=== PATIENT | male | born 1975 | race Caucasian/White ===

== ENCOUNTER 2025-05-14 21:23 | Emergency (ER) | payer MEDICAID, SELFPAY ==
[2025-05-14 21:24] VITALS: BP 151/91; PULSE 66; RESP 20; TEMP 35.9; O2SAT 100; BMI 22.4
[2025-05-14 21:29] VITALS: BP 141/106; PULSE 75; RESP 16; TEMP 37; O2SAT 100
--- NOTE | 2025-05-14 22:25 | ED.VIS.DYS ---
HPI History of Present Illness Chief Complaint: Abd Pain Informant: patient Narrative Narrative: 49-year-old male states he woke up last night with severe sudden right lower quadrant abdominal pain that ended up going away but then tonight it came back and again is severe and persistent. Nauseated but no vomiting. No radiation or migration of the pain. He states he feels like he needs to have a bowel movement and to urinate at the same time but he cannot do either. When he did urinate earlier he denies any hematuria, dysuria, or other issues. States he has never had pain like this before. Denies any other systemic symptoms. According to EMS report he did methamphetamine just prior to arrival. [facility] Medical History (Updated 05/15/25 @ 03:[address] Willie Hnasen MD) Drug abuse Home Medications ?Medication ?Instructions ?Recorded ?Last Taken ?Type oxycodone-acetaminophen 5 mg-325 1 tab PO Q6H PRN PRN Pain 3 days 05/15/25 Unknown Rx mg tablet #12 TABLETS tamsulosin 0.4 mg capsule 0.4 mg PO DAILY #7 caps 05/15/25 Unknown Rx Allergy/AdvReac Type Severity Reaction Status Date / Time No Known Allergies Allergy Verified 05/14/25 21:24 Social History Smoking Status: Current some day smoker tobacco type: cigarettes ROS ROS ED Constitutional Constitutional ED: Denies chills or fever(s) Eyes Eyes: Denies change in vision or diplopia ENT ENT ED: Reports nasal congestion and rhinorrhea; Denies sore throat Cardiovascular Cardiovascular: Denies chest pain, palpitations, pedal edema or radiating jaw, neck or arm pain Respiratory/Chest Respiratory/Chest: Denies cough, dyspnea or sputum Gastrointestinal Gastrointestinal: Reports abdominal pain and nausea; Denies diarrhea or vomiting Genitourinary Genitourinary ED: Denies dysuria or hematuria Musculoskeletal Musculoskeletal: Denies back pain or neck pain Integumentary Denies abscess or rash Neurologic Neurologic: Denies headache(s), paresthesias or weakness Psychiatric Psychiatric: Denies suicidal thoughts EXAM Physical Exam Const Vital Signs: 05/14/25 21:24 05/14/25 21:29 05/14/25 22:29 Temperature 96.7 F L 98.6 F 98.3 F Temperature Source Axillary Oral Oral Pulse Rate 66 75 77 Respiratory Rate 20 H 16 16 Blood Pressure 151/91 H 141/106 H 165/88 H Blood Pressure Mean 111 117 113 Pulse Ox 100 100 100 Oxygen Delivery Method Room Air Room Air Room Air 05/14/25 22:30 05/14/25 23:00 05/15/25 01:42 Temperature 98 F Temperature Source Oral Pulse Rate 77 89 Respiratory Rate 16 17 Blood Pressure 164/70 H 131/86 H Blood Pressure Mean 101 101 Pulse Ox 100 96 97 Oxygen Delivery Method Room Air Room Air Room Air 05/15/25 03:08 Temperature Temperature Source Pulse Rate 63 Respiratory Rate 16 Blood Pressure 125/99 H Blood Pressure Mean 107 Pulse Ox Oxygen Delivery Method Positive well nourished and well developed Constitutional Narrative: Mild painful distress. No resp distress. General Appearance ED: well developed and NAD HEENT Reports moist mucous membranes normocephalic and atraumatic Eyes PERRL and EOMs intact bilaterally Neck full ROM, supple and no JVD Resp normal respiratory effort and clear to auscultation bilaterally Cardio regular rate, regular rhythm and no murmurs GI non-distended GI Narrative: tender throughout RLQ. otherwise, NT. Auscultation: normoactive bowel sounds Palpation: soft; Negative for guarding or rebound tenderness present Back/Spine no CVA tenderness General Back: other FROM Extremity normal to inspection General Extremety ED: Negative for edema, pulses abnormal or tenderness General Extremity: Negative for edema or pulses abnormal Neuro oriented x3, CN's II-XII intact bilaterally and no sensory deficits noted Sensorium / Orientation: awake and alert Motor Exam: strength 5/5 throughout Psych Mood & Affect: anxious Skin no rashes or lesions noted and no wounds MDM MDM MDM Narrative Medical decision making narrative: History and exam more consistent with acute ureteral colic and obstructive uropathy and acute appendicitis or ruptured AAA. However in considering all of these I think CT warranted. I reviewed the CT images as well as result which I agree with, it is consistent with ureterolithiasis and resultant ureteral colic, mild hydroureteronephrosis. This explains the patient's pain. His pain is well-controlled here in the emergency department, but he was here for a while until he was able to produce enough urine for us to send a specimen, so he received a couple doses of pain medication. He is ambulatory and stable for discharge home, expectant management as this is very small, and given that it is a UVJ stone I am putting him on tamsulosin to see if it helps him pass it sooner. Urine shows leukocyte, some white blood cells but not as many as red, but I am sending it for culture because there are bacteria although this was a specimen he gave in a urinal that was then transferred to a sterile cup, my suspicion for infection is low here so I am not treating him with antibiotics; stable for discharge. Lab Data Attestation: I reviewed the patient's lab results. Labs: Laboratory Results - last 24 hr 05/14/25 05/15/25 21:41 03:24 WBC 9.2 RBC 5.47 Hgb 16.0 Hct 47.7 MCV 87.2 MCH 29.3 MCHC 33.5 RDW Std Deviation 39.8 RDW Coeff of Vanessa 12.5 Plt Count 280 MPV 11.3 Immature Gran % (Auto) 0.200 Neut % (Auto) 43.0 L Lymph % (Auto) 42.0 H [place] % (Auto) 10.0 Eos % (Auto) 4.0 Baso % (Auto) 0.8 Absolute Neuts (auto) 4.0 Absolute Lymphs (auto) 3.86 Nucleated RBC % 0 Sodium 139 Potassium 3.7 Chloride 103 Carbon Dioxide 22.1 Anion Gap 13 BUN 27 H Creatinine 1.31 H Estim Creat Clear Calc 70.24 Est GFR (MDRD) Non-Af 67 BUN/Creatinine Ratio 20.4 H Glucose 112 H Calcium 9.4 NT pro BNP II < 36 Urine Color Yellow Urine Clarity Clear Urine pH 6.5 Ur Specific [place] 1.015 Urine Protein 30 H Urine Glucose (UA) Normal Urine Ketones 15 H Urine Occult Blood 250 H Urine Nitrite Negative Urine Bilirubin 1 H Urine Urobilinogen 4 H Ur Leukocyte Esterase 100 H Urine RBC 50-100 SEEN Urine WBC 25-50 SEEN Ur Squamous Epith Cells 0-5 SEEN Calcium Oxalate Crystal 1+ Urine Bacteria 2+ Urine Mucus 4+ Radiography Diagnostic Testing: Clinical Impression(s) from Imaging Studies Abdomen/Pelvis CT 05/14/25 22:34 IMPRESSION: Ureteral calculus at the right ureterovesical junction, with mild hydroureteronephrosis. Reading Location: [id number] Discharge Plan Triage Chief Complaint: Abd Pain ED Provider: Willie Hansen Dx/Rx/DC Orders Clinical Impression: Ureteral colic, Ureterolithiasis Instructions: ED Kidney Stone with Pain Prescriptions: New oxycodone-acetaminophen 5-325 mg tablet 1 tab PO Q6H PRN PRN (Reason: Pain) 3 Days Qty: 12 0RF tamsulosin 0.4 mg capsule 0.4 mg PO DAILY Qty: 7 0RF Primary Care Provider: Care Physician,No Primary Referrals: Solomon Burton MD [Med Staff - Active Staff] - 1 Week if not improving Print Language: [place] Disposition Disposition: Home, Self Care
[2025-05-14 22:29] VITALS: BP 165/88; PULSE 77; RESP 16; TEMP 36.8; O2SAT 100
[2025-05-14 22:30] VITALS: O2SAT 100
--- NOTE | 2025-05-14 22:34 | CT_ITS ---
PROCEDURE: ABDOMEN/PELVIS WITHOUT CONT 05/14/2025 REASON FOR EXAM: POSS KIDNEY STONE- RLQ PAIN TECHNIQUE: ABDOMEN/PELVIS WITHOUT CONT Noncontrast technique limits evaluation of the abdominal and pelvic viscera. Coronal and Sagittal reconstruction series were provided. One or more dose reduction techniques were used (e.g., Automated exposure control, adjustment of the mA and/or kV according to patient size, use of iterative reconstruction technique). ORAL CONTRAST TYPE: None. COMPARISON: None. FINDINGS: Lung bases: Bibasilar atelectasis. The heart is normal in size. Liver: The unopacified liver is normal in size. No biliary ductal dilation. Gallbladder: No radiopaque stones within the gallbladder. Spleen: Normal in size. Pancreas: The unopacified pancreas is unremarkable. Adrenals: No adrenal mass. Kidneys: Tiny 1-2 mm stone at the right ureterovesical junction. Mild right hydroureteronephrosis. Unremarkable left kidney. Bladder: Mildly distended and unremarkable. Reproductive Organs: Unremarkable. Bowel: The bowel loops are nondilated. No ascites or pneumoperitoneum. Normal appendix. Mild distal colonic diverticulosis. Lymph nodes: Visualization is limited without the use of IV contrast. No lymphadenopathy. Vasculature: Mild diffuse atherosclerotic calcifications are noted. Bones: Unremarkable. CT/Abdomen/Pelvis without Cont IMPRESSION: Ureteral calculus at the right ureterovesical junction, with mild hydroureteron ephrosis. Reading Location: [id number]
[2025-05-14 22:35] LABS: Absolute Lymphocyte Count 3.86 X10^3/uL (0.83-4.51); Basophil# 0.07 X10^3/uL; Basophil% 0.8 % (0-1); Eosinophil# 0.37 X10^3/uL; Hematocrit 47.7 % (40-54); Lymphocyte # 3.86 X10^3/ul (0.83-4.51); Mean Corp Hgb Conc 33.5 g/dL (32-36); Mean Corpuscular Hgb 29.3 pg (27.0-32.0); Mean Corpuscular Volume 87.2 fL (80-94); Mean Platelet Vol. 11.3 fl (6.2-12.0); Monocyte# 0.92 X10^3/uL; NRBC Flagged by Analyzer 0 % (0-5); Neutrophil # 3.95 X10^3/uL (2.7-7.7); Platelet Count 280 K/mm3 (150-450); RBC Distribution Width CV 12.5 % (11.6-14.6); RBC Distribution Width SD 39.8 fl (35.1-43.9); Red Blood Count 5.47 M/mm3 (4.6-6.2); White Blood Count 9.2 K/mm3 (4.4-11.0)
[2025-05-14] MEDS: Ketorolac 30 MG/ML Syringe IV (22:44)
[2025-05-14] MEDS: Ondansetron 4 MG/2 ML Vial IV (22:44)
[2025-05-14 23:00] VITALS: BP 164/70; PULSE 77; RESP 16; TEMP 36.6; O2SAT 96
[2025-05-14 23:09] LABS: Anion Gap 13 (5-15); BUN 27 mg/dL (4-19); BUN/Creat Ratio 20.4 RATIO (10-20); Calcium,Total 9.4 mg/dL (7.6-11.0); Carbon Dioxide 22.1 mmol/L (21.0-32.0); Chloride 103 mmol/L (98-108); Creatinine, Serum 1.31 mg/dL (0.70-1.20); EST Glomerular Filtration Rate 67 (>60); Estimated Creatinine Clearance 70.24 ml/min (50-250); Glucose 112 mg/dL (70-99); Potassium 3.7 mmol/L (3.3-5.1); Sodium Level 139 mmol/L (133-145)
[2025-05-14 23:24] LABS: Pro- Brain NATRIURETIC PEPTIDE < 36 pg/mL (<=450)
[2025-05-15] MEDS: Morphine 4 MG/ML Syringe IV (01:40)
[2025-05-15 01:42] VITALS: BP 131/86; PULSE 89; RESP 17; O2SAT 97
[2025-05-15 03:08] VITALS: BP 125/99; PULSE 63; RESP 16
[2025-05-15] MEDS: oxyCODONE 5 MG Tablet PO (03:42)
[2025-05-15 04:04] LABS: Color, Urine Yellow (Yellow); Glucose, Dipstick Normal (Normal); Ketone-Dipstick 15 mg/dl (Negative); Leukocyte Esterase-Dipstick 100 /ul (Negative); Nitrite-Dipstick Negative (Negative); Occult Blood-Urine 250 /ul (Negative); Protein-Dipstick 30 mg/dl (Negative); Specific Gravity, Urine 1.015 (1.002-1.030); Urine Clarity Clear (Clear); Urine Urobilinogen 4 mg/dl (Normal); Urine pH 6.5 (5.0 - 8.0)
[2025-05-15 04:16] LABS: Bacteria 2+ /hpf (None Seen); Calcium Oxalate Crystals Ur 1+ /hpf (<or=2+); Mucous, Urine 4+ /hpf (<or=2+); Red Blood Cells-Urine 50-100 SEEN /hpf (0-5); Squamous Epithelial Cells - UA 0-5 SEEN /hpf (0-5); Urine Bilirubin Dipstick 1 mg/dL (Negative); White Blood Cells 25-50 SEEN /hpf (0-5)
[2025-05-15 04:23] VITALS: BP 142/88; PULSE 62; RESP 18; TEMP 36.6; O2SAT 97
== END 2025-05-15 04:26 | disposition home or self-care (01) ==
PROVIDERS: Emergency Provider Emergency Medicine; Visit Provider Emergency Medicine
DX: N20.1 Calculus of ureter (principal); F17.210 Nicotine dependence, cigarettes, uncomplicated
CPT/HCPCS: 74176; 80048; 81001; 83880; 85025; 87086; 96374; 96375; 99285; A4216; J2405

== ENCOUNTER 2025-05-15 19:16 | Emergency (ER) | payer MEDICAID, SELFPAY ==
[2025-05-15 19:16] VITALS: BP 146/85; PULSE 85; RESP 16; TEMP 36.6; O2SAT 98; BMI 22.7
--- NOTE | 2025-05-15 19:55 | CM.ED ---
Date of referral: 05/15/25 Reason for referral: No PCP Referred by: Social Work Identification Patient provided consent to social and political studies professor visit however was not able to hardly talk due to verbalizing high levels of pain. Patient did confirm that he does not have a PCP so social and political studies professor provided patient with a written handout for the [facility] which patient accepted. Cassy Mcfarland, COLOR CARD MAKER, COIN MACHINE COLLECTOR SUPERVISOR
--- OUTSIDE RECORDS SUMMARY | 2025-05-15 20:04 | XMS RPT_ITS | CCD ---
Author Organization [facility] Inform ion Partnership [facility] Care Team Providers Care Single Resource Boss Name Role Phone DANIEL KING Unavailable Unavailable Unavailable Primary Care Provider Unavailabl e Unavailable Primary Care Provider Unavailabl e Maximus FOSS, Latanya Primary Care Provider Unavazelalem lable LABIRAN, ARAMIDE Primary Care Unavailable LABIRAN, ARAMIDE Primary Care Unavailable TUCKER JUNG Consulting Unavailable CORWIN RAY Admitting Unavailable CORWIN RAY Attending Unavailable ARMANDO MCKINLEY Consulting Unavailable PROVIDER, UNKNOWN Admitting Unavailable PROVIDER, UNKNOWN Attending Unavailable PROVIDER, UNKNOWN Admitting Unavailable PROVIDER, UNKNOWN Attending Unavailable PROVIDER, UNKNOWN Admitting Unavailable PROVIDER, UNKNOWN Attending Unavailable Tyrone FOSS, Dr. Tapia Emergency Provider Care Physician, No Primary Primary Care Provider Unavailable Medications Current Medications Medication Drug Class(es) Dates Sig (Normalized) Sig (Original) acetaminophen 325 mg oral tablet (3 sources) Start: 11-25-2024 End: 12-25-2024 650 mg, Oral, 2 TIMES DAILY PRN, 14 doses, Starting on Sat11/25/24 at 1844, Until Sat12/25/24 at 2359, Mild Pain (pain score 1,2,3) Start: 09-19-2023 End: 09-24-2023 acetaminophen (TYLENOL) tabl et Start: 01-08-2023 End: 02-05-2023 acetaminophen (TYLENOL) tabl et acetaminophen 325 mg / oxyCODONE hydrochloride 5 mg oral tablet (1 source) Opioid Agonist Start: 05-15-2025 take 1 tablet by mouth every six hours as needed for pain Oxycodone-Acetaminophen 5-325 mg tablet Active 1 {tbl} PO EVERY 6 HOURS NEEDED as needed for Pain 12 3 May 15, 2025 Start: 05-15-2025 take 1 tablet by jose th every six hours as needed for pain Oxycodone-Acetaminophen 5-325 mg tablet Active 1 {tbl} PO EVERY 6 HOURS NEEDED as needed for Pain 12 May 15, 2025 atomoxetine 40 mg oral capsule (1 source) Norepinephrine Reuptake Inhibitor Start: 11-05-2024 End: 02-03-2025 40 mg, Oral, DAILY, 90 doses, First dose on Em 11/05/24 at 1700, Last dose on Sat02/02/25 at 0900 benztropine mesylate 1 mg oral tablet (7 sources) Anticholinergic, Antihistamine Start: 01-09-2023 End: 02-06-2023 benztropine (COGENTIN) tablet take 1 tablet by mouth twice deirdre ly benztropine (COGENTIN) 0.5 MG tablet Take 0.5 mg by mouth 2 times daily. Active citalopram 20 mg oral tablet (7 sources) Serotonin Reuptake Inhibitor Start: 01-09-2023 End: 02-06-2023 citalopram (CeleXA) TABS doxepin hydrochloride 50 mg oral capsule (9 sources) Tricyclic Antidepressant Start: 01-17-2023 End: 04-17-2023 doxepin (SINEQUAN) capsule Start: 12-26-2022 End: 01-17-2023 doxepin (SINEQUAN) capsule take 1 capsule by mo [facility] at bedtime doxepin (SINEQUAN) 10 MG capsule Take 10 mg by mouth at bedtime. Active ibuprofen 200 mg oral tablet (4 sources) Nonsteroidal Anti-inflammatory Drug Start: 12-20-2023 End: 01-19-2024 ibuprofen (MOTRIN) tablet Start: 04-29-2023 ibuprofen (ADV IL;MOTRIN) tablet 800 mg Start: 10-08-2022 take 1 tablet by jose four times daily as needed for pain ibuprofen (ADVIL;MOTRIN) 600 MG tablet Indications: Thumb injury, right, initial encounter Take 1 tablet by mouth 4 times daily as needed for Pain 40 tablet 1 10/08/2022 Active naltrexone hydrochloride 50 mg oral tablet (1 source) Opioid Antagonist Start: 11-05-2024 End: 01-28-2025 50 mg, Oral, DAILY, 84 doses, First dose on Em 11/05/24 at 1630, Last dose on Sat01/27/25 at 0900 risperiDONE 0.5 mg oral tablet (1 source) Atypical Antipsychotic Start: 11-05-2024 End: 02-03-2025 take 0.5 mg by mouth once daily in the evening 0.5 mg, Oral, EVERY EVENING, 90 doses, First dose on Sat11/05/24 at 1700, Last dose on Sat02/02/25 at 1700 tamsulosin hydrochloride 0.4 mg oral capsule (1 source) alpha-Adrenergic Deshaun Start: 05-15-2025 take 1 capsule by mouth once daily Tamsulosin 0.4 mg capsule Active 0.4 mg PO DAILY May 15, 2025 12:00am Completed/Discontinued Medications Medication Drug Class(es) Dates Sig (Normalized) Sig (Original) chlorpheniramine maleate 4 mg oral tablet (1 source) Histamine-1 Receptor Antagonist Start: 3 End: 3 chlorpheniramine (CHLOR-TRIMETRON) 4 MG tablet cloNIDine hydrochloride 0.2 mg oral tablet (1 source) Central alpha-2 Adrenergic Agonist Start: 3 End: 3 cloNIDine (CATAPRES) tablet dextroamphetamine sulfate 5 mg oral tablet (1 source) Central Nervous System Stimulant Start: 2 End: 3 take 2 tablets by mouth once daily dextroamphetamine (ZENZEDI) 5 MG tablet Indications: Attention deficit hyperactivity disorder (ADHD), unspecified ADHD type Take 2 tablets by mouth daily for 30 days. 60 tablet 0 10/08/2022 04/29/2023 Discontinued (LIST CLEANUP) dicyclomine hydrochloride 20 mg oral tablet (2 sources) Anticholinergic Start: 3 End: 3 dicyclomine (BENTYL) TABS Start: 12-26-2022 End: 12-30-2022 dicyclomine (BENTYL) TABS ondansetron 4 mg oral tablet (1 source) Serotonin-3 Receptor Antagonist Start: 09-06-2023 End: 09-11-2023 ondansetron (ZOFRAN) tablet Problems Active Problems Problem Classification Problem Date Documented Da te Episodic/Chronic Abdominal pain (1 source) Left lower quadrant pain; Translations: [Left lower quadrant pain] Onset: 04-13-2018 Episodic Administrative/social admission (2 sources) Imprisonment; Translations: [Imprisonment and other incarceration] Episodic Alcohol-related disorders (6 sources) Alcohol abuse; Translations: [Alcohol abuse, uncomplicated] Onset: 01-17-2023 01-17-2023 Chronic Calculus of urinary tract (3 sources) Calculus of kidney; Translations: [Ureteric colic] Onset: 04-13-2018 05-15-2025 Episodic Disorders of teeth and jaw (1 source) Toothache; Translations: [Other specified disorders of teeth and supporting structures] 12-11-2023 Episodic Immunizations and screening for infectious disease (7 sources) Contact with or exposure to other viral diseases; Translations: [Close exposure to COVID-19 virus] Onset: 11-04-2024 Episodic Mood disorders (7 sources) Depressive disorder; Translations: [Depression] Onset: 06-20-2015 06-20-2015 Chronic Mood disorders (2 sources) Mood disorders; Translations: [Depression, unspecified] Onset: 02-19-2024 Other injuries and conditions due to external causes (1 source) Injury of quadriceps tendon; Translations: [Unspecified injury of unspecified quadriceps muscle, fascia and tendon, initial encounter] Episodic Substance-related disorders (20 sources) Opioid dependence; Translations: [Opioid dependence with withdrawal] Onset: 01-17-2023 Chronic Suicide and intentional self-inflicted injury (2 sources) Suicidal ideations; Translations: [Suicidal ideations] Onset: 02-19-2024 Episodic Past or Other Problems Problem Classification Problem Date Documented Da te Episodic/Chronic Other injuries and conditions due to external causes (1 source) Unspecified injury of unspecified quadriceps muscle, fascia and tendon, initial encounter; Translations: [Unspecified injury of unspecified quadriceps muscle, fascia and tendon, initial encounter] Onset: 04-29-2023 Episodic Unclassified (2 sources) Tuberculosis screening status 11-06-2024 Viral infection (5 sources) Disease caused by 2019-nCoV; Translations: [COVID-19] Onset: 01-04-2023 01-04-2023 Episodic Results Test Name Value Interpretation Reference Range Facility Bilirubin Test strip Ql (U)O rdered By: Willie Hansen on 05-15-2025 Bilirubin Ql (U) 1 mg/dL High Negative [facility] Comment on above: COLOR OF URINE MAY A FFECT DIPSTICK RESULTS. Calcium oxalate crystals det ection in urine sediment by light microscopyOrdered By: Willie Hansen on 05-15-2025 Calcium oxalate crystals LM Ql (Urine sed) 1+ /hpf [facility] Ketones Test strip Ql (U)Ord ered By: Willie Hansen on 05-15-2025 Ketones Ql (U) 15 mg/dl High Negative [facility] Microscopic analysis of urin e for red blood cells (RBC)Ordered By: Willie Hansen on 05-15-2025 Microscopic analysis of urine for red blood cells (RBC) 50-100 SEEN /hpf 0-5 [facility] Mucus LM Ql (Urine sed)Order ed By: Willie Hansen on 05-15-2025 Mucus Ql (Urine sed) 4+ /hpf [facility] Nitrite Test strip Ql (U)Ord ered By: Willie Hansen on 05-15-2025 Nitrite Ql (U) Negative Negative [facility] Protein Test strip Ql (U)Ord ered By: Willie Hansen on 05-15-2025 Protein Ql (U) 30 mg/dl High Negative [facility] Squamous epithelial cells de tection in urine sediment by light microscopyOrdered By: Willie Hansen on 05-15-2025 Epithelial cells.squamous LM Ql (Urine sed) 0-5 SEEN /hpf 0-5 [facility] Urine clarityOrdered By: Baldev Hansen on 05-15-2025 Clarity (U) Clear Clear [facility] Urine color determinationOrd ered By: Willie Hansen on 05-15-2025 Color (U) Yellow Yellow [facility] Urine glucose detectionOrder ed By: Willie Hansen on 05-15-2025 Glucose Ql (U) Normal mg/dl Normal [facility] Urine leukocyte esterase det ection by dipstickOrdered By: Willie Hansen on 05-15-2025 Leukocyte esterase Test strip Ql (U) 100 /ul High Negative [facility] Urine pHOrdered By: Willie Hansen on 05-15-2025 pH (U) 6.5 [pH] 5.0 - 8.0 [facility] Urine sediment bacteria coun t by microscopy (number/high power field)Ordered By: Willie Hansen on 05-15-2025 Bacteria LM.HPF (Urine sed) [#/Area] 2 /[HPF] None Seen [facility] Urine specific gravity measu rementOrdered By: Willie Hansen on 05-15-2025 Specific gravity (U) [Rel density] 1.015 1.002-1.030 [facility] Urine urobilinogen measureme ntOrdered By: Willie Hansen on 05-15-2025 Urobilinogen Ql (U) 4 mg/dl High Normal [facility] White blood cell countOrdere d By: Willie Hansen on 05-15-2025 White blood cell count 25-50 SEEN /hpf 0-5 [facility] Absolute lymphocyte countOrd ered By: Willie Hansen on 05-14-2025 Lymphocytes Auto (Unsp spec) [#/Vol] 3.86 10*3/uL 0.83-4.51 [facility] Absolute neutrophil countOrd ered By: Willie Hansen on 05-14-2025 Neutrophils (Bld) [#/Vol] 4.0 10*3/uL 2.0-7.7 [facility] Anion gap in Serum or Plasma Ordered By: Willie Hansen on 05-14-2025 Anion gap [Moles/Vol] 13 mmol/L 5-15 [facility] Automated lymphocyte count a s percentage of total leukocytesOrdered By: Willie Hansen on 05-14-2025 Lymphocytes/100 WBC Auto (Unsp spec) 42.0 % High 19-41 [facility] BUN/creatinine ratioOrdered By: Willie Hansen on 05-14-2025 Urea nitrogen/Creatinine [Mass ratio] 20.4 mg/mg High 10-20 [facility] Basophil percentageOrdered B y: Willie Hansen on 05-14-2025 Basophils/100 WBC (Bld) 0.8 % 0-1 [facility] Carbon dioxide, total [Moles /volume] in Central venous bloodOrdered By: Willie Hansen on 05-14-2025 CO2 [Moles/Vol] 22.1 mmol/L 21.0-32.0 [facility] Chloride assayOrdered By: Franklyn Hansen on 05-14-2025 Chloride [Moles/Vol] 103 mmol/L 98-108 [facility] Eosinophil percentageOrdered By: Willie Hansen on 05-14-2025 Eosinophils/100 WBC (Bld) 4.0 % 0-5 [facility] Erythrocyte distribution wid th ratioOrdered By: Willie Hansen on 05-14-2025 Erythrocyte distribution width (RBC) [Ratio] 12.5 % 11.6-14.6 [facility] Erythrocyte distribution wid th standard deviationOrdered By: Willie Hansen on 05-14-2025 Erythrocyte distribution width (RBC) [Ratio] 39.8 fl 35.1-43.9 [facility] Glomerular filtration rate ( GFR) estimation/1.73 sq m using serum, plasma, or whole bOrdered By: Willie Hansen on 05-14-2025 GFR/1.73 sq M.predicted among non-blacks MDRD (S/P/Bld) [Vol rate/Area] 67 mL/min/{1.73_m2} >60 [facility] Comment on above: mL/min/1.73m2 CKD-EP I Creatinine Equation (2020) Hematocrit Auto (Bld) [Volum e fraction]Ordered By: Willie Hansen on 05-14-2025 Hematocrit (Bld) [Volume fraction] 47.7 % 40-54 [facility] Hemoglobin measurementOrdere d By: Willie Hansen on 05-14-2025 Hemoglobin (Bld) [Mass/Vol] 16.0 g/dL 13.0-16.5 [facility] Immature granulocytes/100 WB C Auto (Bld)Ordered By: Willie Hansen 05-14-2025 Immature granulocytes/100 WBC (Bld) 0.200 % 0.0-0.9 [facility] Comment on above: IG% - Immature Granu locytes (promyelocytes, myelocytes and metamyelocytes) > 1% indicates that a LEFT SHIFT is Present. MCV (mean corpuscular volume ) determinationOrdered By: Willie Hansen on 05-14-2025 MCV (RBC) [Entitic vol] 87.2 fL 80-94 [facility] Mean corpuscular hemoglobin (MCH) determinationOrdered By: Willie Hansen on 05-14-2025 MCH (RBC) [Entitic mass] 29.3 pg 27.0-32.0 [facility] Mean corpuscular hemoglobin concentration (MCHC) determinationOrdered By: Willie Hansen on 05-14-2025 MCHC (RBC) [Mass/Vol] 33.5 g/dL 32-36 [facility] Mean platelet volume determi nationOrdered By: Willie Hansen on 05-14-2025 Platelet mean volume (Bld) [Entitic vol] 11.3 fL 6.2-12.0 [facility] Monocyte percentageOrdered B y: Willie Hansen on 05-14-2025 Monocytes/100 WBC (Bld) 10.0 % 0-10 [facility] Natriuretic peptide.B prohor tessy N-Terminal [Mass/volume] in Serum or PlasmaOrdered By: Willie Hansen on 05-14-2025 Natriuretic peptide.B prohormone N-Terminal [Mass/Vol] < 36 pg/mL <450 [facility] Comment on above: Heart Failure Unlike ly: < 300 pg/mLHeart Failure Likely< 50 Years: > 450 pg/mL50-75 Years: > 900 pg/mL>75 Years: > 1800 pg/mL Neutrophil percentageOrdered By: Willie Hansen on 05-14-2025 Neutrophils/100 WBC (Bld) 43.0 % Low 47-70 [facility] Nucleated red blood cell per centageOrdered By: Willie Hansen on 05-14-2025 Nucleated RBC/100 WBC (Bld) [Ratio] 0 % 0-5 [facility] Platelet countOrdered By: Franklyn Hansen on 05-14-2025 Platelets (Bld) [#/Vol] 280 10*3/uL 150-450 [facility] Potassium measurement (mass/ volume)Ordered By: Willie Hansen on 05-14-2025 Potassium (Unsp spec) [Mass/Vol] 3.7 mmol/L 3.3-5.1 [facility] RBC Auto (Bld) [#/Vol]Ordere d By: Willie Hansen on 05-14-2025 RBC (Bld) [#/Vol] 5.47 10*6/uL 4.6-6.2 [facility] Serum creatinine measurement (mass/volume)Ordered By: Willie Hansen on 05-14-2025 Creatinine [Mass/Vol] 1.31 mg/dL High 0.70-1.20 [facility] Serum glucose measurement (m ass/volume)Ordered By: Willie Hansen on 05-14-2025 Glucose [Mass/Vol] 112 mg/dL High 70-99 [facility] Serum or plasma calcium hetal urement (mass/volume)Ordered By: Willie Hansen on 05-14-2025 Calcium [Mass/Vol] 9.4 mg/dL 7.6-11.0 [facility] Serum or plasma urea nitroge n measurement (mass/volume)Ordered By: Willie Hansen on 05-14-2025 Urea nitrogen [Mass/Vol] 27 mg/dL High 4-19 [facility] Sodium levelOrdered By: Owen Hansen on 05-14-2025 Sodium [Moles/Vol] 139 mmol/L 133-145 [facility] White blood cell (WBC) count Ordered By: Willie Hansen on 05-14-2025 WBC (Bld) [#/Vol] 9.2 10*3/uL 4.4-11.0 [facility] Progress Noteson 11-25-2024 Claims Processor Authentication Interface Message Text Patient to medication cart this evening requesting Tylenol for back pain. Medication pended to provider pool for approval. Normal [facility] Progress Noteson 11-18-2024 Claims Processor Authentication Interface Message Text ExAM Follow-up Appointment Checo Osborne is a 49 year old male. Client was seen today as a follow up for discovery. Updates since last visit on 11/11/24 by this telegraphic typewriter installer. Client reports he's very anxious being here and his daughter is in Foster Care. Client was informed he has lost his bed at [address] [place] [address] and is worried he will not be able to care for his child. Client is asking for a sober living (housing for he and his daughter) in [facility]. Client still believes he will spend 30 days here at the [facility], after his hearing on 11/23/24 with Gabriel Ferrari. Client is still asking for Evin to be at his hearing. No further follow up is needed at this time. Plan/Recommendations: -Speak with Evin. ANGY Wasserman, CLOTH MEASURER MACHINE Normal [facility] HEPATIC FUNCTION PANELon Albumin [Mass/Vol] 4.4 g/dL 3.5 - 5.7 g/dL [facility] ALP [Catalytic activity/Vol] 81 U/L [facility] ALT [Catalytic activity/Vol] 14 U/L [facility] AST [Catalytic activity/Vol] 13 U/L [facility] Bilirubin [Mass/Vol] 0.5 mg/dL 0.3 - 1 .0 mg/dL [facility] Bilirubin.direct [Mass/Vol] 0.09 mg/dL 0.03 - 0.18 mg/dL [facility] Interpretation and review of laboratory results Normal [facility] Protein [Mass/Vol] 6.9 g/dL 6.0 - 8.3 g/dL [facility] Albumin [Mass/Vol] 4.4 g/dL Normal 3.5-5.7 [facility] Comment on above: Performed By: #### H EPATIC #### [facility] [address] [place] [address], ALK 81 IU/L Normal 34-104 [facility] Comment on above: Performed By: #### H EPATIC #### [facility] [address] [place] [address], ALT [Catalytic activity/Vol] 14 U/L Normal 7-52 [facility] Comment on above: Performed By: #### H EPATIC #### [facility] [address] [place] [address], AST [Catalytic activity/Vol] 13 U/L Normal 13-39 [facility] Comment on above: Performed By: #### H EPATIC #### S [facility] [address] [place] [address], Bilirubin [Mass/Vol] 0.5 mg/dL Normal 0.3-1.0 [facility] Comment on above: Performed By: #### H EPATIC #### S [facility] [address] [place] [address], Bilirubin.direct [Mass/Vol] 0.09 mg/dL Normal 0.03-0.18 [facility] Comment on above: Performed By: #### H EPATIC #### S [facility] [address] [place] [address], Protein [Mass/Vol] 6.9 g/dL Normal 6.0-8.3 [facility] Comment on above: Performed By: #### H EPATIC #### [facility] [address] [place], [id number] Progress Noteson 11-11-2024 Claims Processor Authentication Interface Message Text ExAM Follow-up Appointment Checo Osborne is a 49 year old male. Client was seen today to discuss case and treatment plan. Updates since last visit on 11/05/[address] Lew. Client reports he's very anxious being here and his daughter is in Foster Care. Client reports being in [facility] treatment center with is daughter at the time of arrest. Client plans to finish his time here, get his daughter out of foster case and go back to the treatment center. Client says, they are holding his room. Client spoke with his bakery manager 11/10/24. Client believes he will spend 30 days here ([facility]) after his hearing on 11/23/24 with Gabriel Ferrari. No further follow up is needed at this time. ANGY Wasserman, CLOTH MEASURER MACHINE Normal [facility] Addiction Medicineon Claims Processor Authentication Interface Message Text Patient seen by Addiction Provider on CIWA/COWS rounds HPI: Pt reports he's been sober from methamphetamine and fentanyl for almost 1 year. He was in an inpatient program in [place] then transitioned to their sober living- [facility] where he was able to stay with his 5 year old daughter. He says this was his only way to stay sober and keep his daughter with him. Mother of child is actively using and unable to care for her. He is very upset that he was arrested from there due to his PO issuing a warrant. Says he didn't have transportation for check ins but tried to let PO know he was in treatment. Daughter was taken into CPS custody on his arrest and he is very worried for her and sad over this happening. Had been working hard to keep custody of her and maintain sobriety. Was being treated for ADHD and irritbality, mild schizophrenia with strattera and risperidone. Would like to continue these as they are helpful to him. Also pending a MAT evaluation for Methamphetamine use. Discussed limits of medication options but evidence for vivitrol and wellbutrin, thinks that is what he'd get outside of here, willing to start on PO naltrexone to assess tolerability, understands wellbutrin not available here. No SI, HI. UDS: not collected Substance Use History (type, frequency, amount, route of use, onset of use, last use): Opioids: sober for 1 year, hx using fentanyl mixed with meth for several years Alcohol: denies any regular use Benzodiazepines: denies Cocaine: has used, no use in over a year PCP: denies Methamphetamine/ecstasy: meth use- last used 1 year ago, hx daily use Cannabis: hx of use, none in over a year Hx of Delirium Tremens: denies Hx of Seizure: denies Hx of other complicated withdrawal: denies Past Substance Use treatment history: Hx of treatment attempts: yes Types of treatments (inpatient, IOP, OP): IP, IOP, sober living Hx of Medications for JERRICA (and name): subutex tapers before Longest period of sobriety and how attained: almost 1 year, in inpatient tx and sober living Past Psych History: Dx: ADHD, depression Mild schizophrenia Inpatient: x1 at [facility] for depression first time daughter was put in foster care Outpatient: denies Suicide attempts/SIB: denies Meds: Mental Status Exam: Appearance AND attitude: calm, cooperative. Mood: euthymic. Affect:Full Range. Speech: appropriate AND spontaneous, normal rate AND flow. Thought form: organized. Thought content AND perception: no derailment or disorganized thoughts of psychotic nature, denies auditory hallucinations, denies visual hallucinations, denies suicidal thoughts or intention, denies homicidal thoughts or intention. Orientation: Oriented to time, person AND place. Memory AND attention: sustained. Judgment AND insight: fair Diagnoses: Methamphetamine use disorder Plan: - start PO naltrexone, pt to consider Vivitrol for methamphetamine use, discussed that this tx shown beneficial with wellbutrin 450mg, which not on formulary here, he understands, would like to consider that on leaving with outpatient provider - previous LFTS WNL from one year ago, recheck - strattera 40mg daily- reports takine 60mg outside of here but we only have capsules - risperidone 0.5mg nightly for mood, irritability Patient can remain on GP RTC 4-6 weeks Referral to: ExAM team Melony Lew MD Normal [facility] Progress Noteson 12-04-2024 Claims Processor Authentication Interface Message Text Patient/Inmate Health Assessment Checo Osborne, 49 year old male, is admitted to [facility]. This is the 1st admission within the last 12 months. Patient/inmate is being seen today for 14 Day Health Assessment. Additional clinical concerns today: Patient A AND O x3 with a steady gait. VS stable within normal limits. Wristband on ppd administered to right forearm. Patient denies S/I AND H/I at this time. Patient denies auditory or visual hallucinations and answers questions appropriately. Patient denies any pain at this time. Patient states he currently is living in a sober living facility and has an upcoming appointment with MAT for medication. Addiction medicine referral made for evaluation. All receiving screen information reviewed including communicable diseases, chronic diseases and mental health evaluation. History Patient Active Problem List: Depression [F32.A] COVID [U07.1] Opioid abuse [F11.10] Alcohol abuse [F10.10] Cocaine abuse [F14.10] Methamphetamine use disorder, severe, dependence (HCC) [F15.20] No past medical history on file. No past surgical history on file. Immunization History Administered Date(s) Administered Moderna Monovalent (12+ yrs) COVID-19 vaccine, mRNA, spike protein, LNP, PF, 100 mcg/0.5 mL (NHN=143) 10/11/2021 TST-PPD, intradermal (PPD) (CVX=96) 10/19/2019, 01/12/2020, 07/26/2020, 11/12/2020, 06/02/2021, 12/26/2022, 11/04/2024 Health Maintenance Topic Date Due Pneumococcal Vaccine(s) (1 of 2 - PCV) Never done Tdap Booster Never done Hepatitis B (HBV) Vaccine (1 of 3 - 19+ 3-dose series) Never done Cholesterol Never done CRC Screening Never done Influenza Vaccine (1) Never done COVID-19 Vaccine (2 - 2023- season) 2024 Hepatitis A (HAV) Vaccine (optional start 19+ years) 1994 Shingles (RZV) Vaccine (1 of 2) 2025 Hepatitis C Antibody Completed HIV Test Completed Physical findings On 12/10/2023 the vital signs were as follows: temperature 36.7, pulse 83, respirations 16, blood pressure 115/79, weight 151 lbs 0 (68.5 kg), height 5' 10 (177.8 cm). BP 121/83 Pulse 65 Temp 98.3 ???F (36.8 ???C) Resp 16 Wt 159 lb 6.4 oz (72.3 kg) SpO2 98% BMI 22.87 kg/m??? Physical Exam 11/04/24 2300 Pain C/O Pain? No Dental Dental issues? No Respiratory Respiratory WNL Cardiovascular Cardiovascular WNL Neurological / Neuromuscular Neurological / Neuromuscular WNL Gastrointestinal Gastrointestinal WNL Genitourinary Genitourinary WNL Integumentary Integumentary WNL Suicide Screen Assessment Wished you were ? No Thoughts of killing/harming yourself? No Fall Risk Assessment (Adult) Age 0 Fall History (past 6 months) 0 Incontinence, Bowel AND Bladder 0 Urgency / Frequency 0 Medications 0 Patient Care Equipment 0 Mobility (Assistance) 0 Mobility (Gait) 0 Mobility (Sensory Deficit) 0 Cognition (Awareness) 0 Cognition (Impulsiveness) 0 Cognition (Limitations) 0 Fall Risk Score 0 Fall Risk Level (Adult) Low Risk Fall Interventions (Adult) Low Risk Interventions (Adult) Basic safety interventions initiated 14 Day Health Assessment Assesment completed? Y Date completed? 11/04/24 Focused Assessment? Focused Assessment? No 09/10/2023 09/10/2023 09/09/2023 09/06/2023 COWS Screening Resting Pulse Rate 81 - 100 80 or below 81 - 100 81 - 100 Sweating Subjective report of chills or flushing Subjective report of chills or flushing Subjective report of chills or flushing Flushed or observable moistness on face Restlessness Reports difficulty sitting still, but is able to do so Able to sit still Able to sit still Frequent shifting or extraneous movements of arms/legs Pupil Size Pinned or normal size for room light Pinned or normal size for room light Pinned or normal size for room light Pinned or normal size for room light Bone/Joint Aches Not present Not present Mild diffuse discomfort Patient reports severe diffuse aching of joints/muscles Runny Nose/Tearing Not present Not present Not present Nasal stuffiness or unusually moist eyes GI Upset Stomach cramps Stomach cramps Stomach cramps Vomiting or diarrhea Tremors No tremor No tremor No tremor Slight tremor observable Yawning No yawning No yawning No yawning Yawning once or twice during assessment Anxiety or Irritability Patient reports increasing irritability or anxiousness Patient reports increasing irritability or anxiousness Patient reports increasing irritability or anxiousness Patient reports increasing irritability or anxiousness Gooseflesh Skin Skin is smooth Skin is smooth Skin is smooth Skin is smooth Clinical Opiate Withdrawal Score 5 3 5 16 No results found for this or any previous visit (from the past 25452 hours). BMP (last 3 years, up to 8 values) No lab values to display. No results found for: HBA1C No results found for: HIVLOAD ASSESSMENT/PLAN Screening for tuberculosis (more content not included)... Normal [employer] Acetaminophenon 02-19-2024 Acetaminophen [Mass/Vol] ug/mL Low 10-30 [facility] Comment on above: Performed By: #### A CETM #### [facility] [address] [place] [address] Alcoholon 02-19-2024 Blood Alcohol Concentration Not indicated Normal [facility] Comment on above: Performed By: #### A LCOH #### [facility] [address] [place] [address] Ethanol [Mass/Vol] mg/dL Normal [facility] Comment on above: Performed By: #### A LCOH #### [facility] [address] [place] [address] CBC With Platelet and Differ entialon 02-19-2024 Basophils (Bld) [#/Vol] 0.1 10*3/uL Normal 0.0-0.2 [facility] Comment on above: Performed By: #### C BCWD #### [facility] [address] [place] [address] Basophils/100 WBC (Bld) 1.0 % Normal [facility] Comment on above: Performed By: #### C BCWD #### [facility] [address] [place] [address] Eosinophils (Bld) [#/Vol] 0.6 10*3/uL Normal 0.0-0.7 [facility] Comment on above: Performed By: #### C BCWD #### [facility] [address] [place] [address] Eosinophils/100 WBC (Bld) 8.5 % Normal [facility] Comment on above: Performed By: #### C BCWD #### [facility] [address] [place] [address] Erythrocyte distribution width (RBC) [Ratio] 12.4 % Normal 11.5-14.5 [facility] Comment on above: Performed By: #### C BCWD #### [facility] [address] [place] [address] Hematocrit (Bld) [Volume fraction] 45.2 % Normal 42.0-52.0 [facility] Comment on above: Performed By: #### C BCWD #### [facility] [address] [place] [address] Hemoglobin (Bld) [Mass/Vol] 15.3 g/dL Normal 14.0-18.0 [facility] Comment on above: Performed By: #### C BCWD #### [facility] [address] [place] [address] Lymphocytes (Bld) [#/Vol] 2.2 10*3/uL Normal 1.0-4.8 [facility] Comment on above: Performed By: #### C BCWD #### [facility] [address] [place] [address] Lymphocytes/100 WBC (Bld) 31.7 % Normal [facility] Comment on above: Performed By: #### C BCWD #### [facility] [address] [place] [address] MCH (RBC) [Entitic mass] 29.7 pg Normal 27.0-31.3 [facility] Comment on above: Performed By: #### C BCWD #### [facility] [address] [place] [address] MCHC 33.8 % Normal 33.0-37.0 [facility] Comment on above: Performed By: #### C BCWD #### [facility] [address] [place] [address] MCV (RBC) [Entitic vol] 87.6 fL Normal 79.0-92.2 [facility] Comment on above: Performed By: #### C BCWD #### [facility] [address] [place] [address] Monocytes (Bld) [#/Vol] 0.8 10*3/uL Normal 0.2-0.8 [facility] Comment on above: Performed By: #### C BCWD #### [facility] [address] [place] [address] Monocytes/100 WBC (Bld) 11.1 % Normal [facility] Comment on above: Performed By: #### C BCWD #### [facility] [address] [place] [address] Neutrophils (Bld) [#/Vol] 3.3 10*3/uL Normal 1.4-6.5 [facility] Comment on above: Performed By: #### C BCWD #### [facility] [address] [place] [address] Neutrophils/100 WBC (Bld) 47.6 % Normal [facility] Comment on above: Performed By: #### C BCWD #### [facility] [address] [place] [address] Platelets (Bld) [#/Vol] 245 10*3/uL Normal 130-400 [facility] Comment on above: Performed By: #### C BCWD #### [facility] [address] [place] [address] RBC (Bld) [#/Vol] 5.16 10*6/uL Normal 4.70-6.10 [facility] Comment on above: Performed By: #### C BCWD #### [facility] [address] [place] [address] WBC (Bld) [#/Vol] 6.8 10*3/uL Normal 4.8-10.8 [facility] Comment on above: Performed By: #### C BCWD #### [facility] [address] [place] [address] Comprehensive Metabolic Pane guerline 02-19-2024 Albumin [Mass/Vol] 4.2 g/dL Normal 3.5-4.6 [facility] Comment on above: Performed By: #### C MP #### [facility] [address] [place] [address] ALP [Catalytic activity/Vol] 90 U/L Normal 35-104 [facility] Comment on above: Performed By: #### C MP #### [facility] [address] [place] [address] ALT [Catalytic activity/Vol] 17 U/L Normal 0-41 [facility] Comment on above: Performed By: #### C MP #### [facility] [address] [place] [address] Anion gap [Moles/Vol] 9 mmol/L Normal 9-15 [facility] Comment on above: Performed By: #### C MP #### [facility] [address] [place] [address] AST [Catalytic activity/Vol] 18 U/L Normal 0-40 [facility] Comment on above: Performed By: #### C MP #### [facility] [address] [place] [address] Bilirubin [Mass/Vol] 0.3 mg/dL Normal 0.2-0.7 [facility] Comment on above: Performed By: #### C MP #### [facility] [address] [place] [address] Calcium [Mass/Vol] 9.3 mg/dL Normal 8.5-9.9 [facility] Comment on above: Performed By: #### C MP #### [facility] [address] [place] [address] Chloride [Moles/Vol] 108 mmol/L Critically high 95-107 [facility] Comment on above: Performed By: #### C MP #### [facility] [address] [place] [address] CO2 [Moles/Vol] 24 mmol/L Normal 20-31 [facility] Comment on above: Performed By: #### C MP #### [facility] [address] [place] [address] Creatinine [Mass/Vol] 0.79 mg/dL Normal 0.70-1.20 [facility] Comment on above: Performed By: #### C MP #### [facility] [address] [place] [address] GFR >60.0 Normal >60 [facility] Comment on above: Result Comment: Pedi atric calculator link [email or web address]://www.[email or web address].org/professionals/kdoqi/[email or web address]_[email or web address] Effective Sep 03, 2022 These results are not intended for use in patients <18 years of age. eGFR results are calculated without a race factor using the 2020 CKD-EPI equation. Careful clinical correlation is recommended, particularly when comparing to results calculated using previous equations. The CKD-EPI equation is less accurate in patients with extremes of muscle mass, extra-renal metabolism of creatinine, excessive creatinine ingestion, or following therapy that affects renal tubular secretion. Performed By: #### C MP #### [facility] [address] [place] [address] Globulin (S) [Mass/Vol] 2.8 g/dL Normal 2.3-3.5 [facility] Comment on above: Performed By: #### C MP #### [facility] [address] [place] [address] Glucose [Mass/Vol] 98 mg/dL Normal 70-99 [facility] Comment on above: Performed By: #### C MP #### [facility] [address] [place] [address] Potassium [Moles/Vol] 4.2 mmol/L Normal 3.4-4.9 [facility] Comment on above: Performed By: #### C MP #### [facility] [address] [place] [address] Protein [Mass/Vol] 7.0 g/dL Normal 6.3-8.0 [facility] Comment on above: Performed By: #### C MP #### [facility] [address] [place] [address] Sodium [Moles/Vol] 141 mmol/L Normal 135-144 [facility] Comment on above: Performed By: #### C MP #### [facility] [address] [place] [address] Urea nitrogen [Mass/Vol] 22 mg/dL Critically high 6-20 [facility] Comment on above: Performed By: #### C MP #### [facility] [address] [place] [address] Creatine Kinaseon 02-19-2024 CK [Catalytic activity/Vol] 213 U/L Critically high 0-190 [facility] Comment on above: Performed By: #### C BCWD #### [facility] [address] [place] [address] Hemoglobin A1con 02-19-2024 HbA1c (Bld) [Mass fraction] 5.2 % Normal 4.8-5.9 [facility] Comment on above: Performed By: #### C BCWD #### [facility] [address] [place] [address] Lipid Panelon 02-19-2024 Cholesterol [Mass/Vol] 139 mg/dL Normal 0-199 [facility] Comment on above: Result Comment: ATP III Cholesterol classification is Desirable. Performed By: #### L IPID #### [facility] [address] [place] [address] Cholesterol in HDL [Mass/Vol] 41 mg/dL Normal 40-59 [facility] Comment on above: Result Comment: ATP III HDL Cholesterol Classification is Desirable. Expected Values: Males: >55 = No Risk 35-55 = Moderate Risk <35 = High Risk Females: >65 = No Risk 45-65 = Moderate Risk <45 = High Risk NCEP Guidelines: Third Report April 2001 >59 = negative risk factor for CHD <40 = major risk factor for CHD Performed By: #### L IPID #### [facility] [address] [place] [address] Cholesterol in LDL [Mass/Vol] 83 mg/dL Normal 0-129 [facility] Comment on above: Result Comment: ATP III LDL Classification is Optimal. Performed By: #### L IPID #### [facility] [address] [place] [address] Triglyceride [Mass/Vol] 76 mg/dL Normal 0-150 [facility] Comment on above: Result Comment: ATP III Triglycerides Classification is Normal. Performed By: #### L IPID #### [facility] [address] [place] [address] Salicylateon 02-19-2024 Salicylate 0.5 mg/dL Low 15.0-30.0 [facility] Comment on above: Result Comment: Anti -pyretic: 3.0-10.0 mg/dL Anti-inflammatory: 15.0-30.0 mg/dL Toxic: >30.0 mg/dL Performed By: #### S ALIC #### [facility] [address] [place] [address] TSH w/out Reflexon TSH w/out Reflex 0.878 uIU/mL Normal 0.440-3.86 [facility] Comment on above: Performed By: #### T SH #### [facility] [address] [address] UR Drugs of Abuse Panelon Drug Screen Comment see below Normal [facility] Comment on above: Result Comment: This method is a screening test to detect only these drug classes as part of a medical workup. Confirmatory testing by another method should be ordered if clinically indicated. Performed By: #### U DRGS #### [facility] [address] [place] [address] UR Amphetamines Screen Positive Abnormal Negative < [facility] Comment on above: Performed By: #### U DRGS #### [facility] [address] [place] [address] UR Barbiturates Screen Negative Normal Negative < [facility] Comment on above: Performed By: #### U DRGS #### [facility] [address] [place] [address] UR Benzo Screen Negative Normal Negative < [facility] Comment on above: Performed By: #### U DRGS #### [facility] [address] [place] [address] UR Cannabinoids Screen Negative Normal Negative < [facility] Comment on above: Performed By: #### U DRGS #### [facility] [address] [place] [address] UR Cocaine Screen Negative Normal Negative < [facility] Comment on above: Performed By: #### U DRGS #### [facility] [address] [place] [address] UR Fentanyl Screen Negative Normal Negative < [facility] Comment on above: Performed By: #### U DRGS #### [facility] [address] [place] [address] UR Methadone Screen Negative Normal Negative < [facility] Comment on above: Performed By: #### U DRGS #### [facility] [address] [place] [address] UR Opiates Screen Negative Normal Negative < [facility] Comment on above: Performed By: #### U DRGS #### [facility] [address] [place] [address] UR Oxycodone Screen Negative Normal Negative < [facility] Comment on above: Performed By: #### U DRGS #### [facility] [address] [place] [address] UR PCP Screen Negative Normal Negative < [facility] Comment on above: Performed By: #### U DRGS #### [facility] [address] [place] [address] UR Propoxyphene Screen Negative Normal Negative < [facility] Comment on above: Performed By: #### U DRGS #### [facility] [address] [place] [address] Urinalysis, reflex to cultur rene 02-19-2024 Urine Reflexed to Culture Not Indicated Normal [facility] Comment on above: Performed By: #### U AR #### [facility] [address] [place] [address] Bilirubin Ql (U) Negative Normal Negative [facility] Comment on above: Performed By: #### U AR #### [facility] [address] [place] [address] Clarity (U) Clear Normal Clear [facility] Comment on above: Performed By: #### U AR #### [facility] [address] [place] [address] Color (U) DARK YELLOW Abnormal Straw/[place] [facility] Comment on above: Performed By: #### U AR #### [facility] [address] [place] [address] Glucose Ql (U) Negative Normal Negative [facility] Comment on above: Performed By: #### U AR #### [facility] [address] [place] [address] Hemoglobin Ql (U) Negative Normal Negative [facility] Comment on above: Performed By: #### U AR #### [facility] [address] [place] [address] Ketones Ql (U) TRACE Abnormal Negative [facility] Comment on above: Performed By: #### U AR #### [facility] [address] [place] [address] Leukocyte esterase Test strip Ql (U) Negative Normal Negative [facility] Comment on above: Performed By: #### U AR #### [facility] [address] [place] [address] Nitrite Ql (U) Negative Normal Negative [facility] Comment on above: Performed By: #### U AR #### [facility] [address] [place] [address] pH (U) 5.5 [pH] Normal 5.0-9.0 [facility] Comment on above: Performed By: #### U AR #### [facility] [address] [place] [address] Protein Ql (U) 100 mg/dL Abnormal Negative [facility] Comment on above: Performed By: #### U AR #### [facility] [address] [place] [address] Specific gravity (U) [Rel density] 1.029 Normal 1.005-1.03 [facility] Comment on above: Performed By: #### U AR #### [facility] [address] [place] [address] Urobilinogen Qn (U) 0.2 {Court'U}/dL Normal < 2.0 [facility] Comment on above: Performed By: #### U AR #### [facility] [address] [place] [address] Urine Microscopicon 0320-20 24 Urine RBC 0-2 Normal 0-2 [facility] Comment on above: Performed By: #### U JESUS #### [facility] [address] [place] [address] Bacteria LM.HPF (Urine sed) [#/Area] Negative Normal Negative [facility] Comment on above: Performed By: #### U JESUS #### [facility] [address] [place] [address] Urine Epithelial Cells Auto 0-2 Normal 0-5 [facility] Comment on above: Performed By: #### U JESUS #### [facility] [address] [place] [address] Urine Hyaline Casts Auto 5-10 Normal 0-5 [facility] Comment on above: Performed By: #### U JESUS #### [facility] [address] [place] [address] Urine WBC Auto 3-5 Normal 0-5 [facility] Comment on above: Performed By: #### U JESUS #### [facility] [address] [place] [address] Progress Noteson 01-27-2024 [employer] Authentication Interface Message Text ----- Saturday, January 27, 2024 at 4:46:56 PM ----- ----- Provider: Abhishek Maloney -- Clinic: [facility] ----- Inmate/Patient was scheduled for dental appointment. Inmate/Patient is out of intermediate. Appointment will be broken and will not rescheduled at this time. Holden Gan [facility] Normal [facility] Progress Noteson 12-26-2023 Claims Process[employer] Authentication Interface Message Text Pt went to court this morning and is being released today so he stated he did not need to be seen. Denied s/h ideation. Jessica Goode, [employer] Normal [facility] Progress Noteson 12-20-2023 [employer] Interface Message Text 14 doses of ibuprofen in 30 days will be given for pain prn. No refills will be given until after the 30 days. Normal [facility] [employer] Progress Noteson 12-19-2023 [employer] Authentication Interface Message Text ----- December at 12:09:09 PM ----- ----- Provider: Abhishek Maloney -- Clinic: [facility] ----- DENTAL SCREENING Inmate seen on pod. DDS out of office. Inmate informed. Inmate informed that I cannot diagnose any dental disease but will present any significant findings to dentist. Inmate consented to screening. Used Pen light and exam mirror for screening. Chief Complaint - This tooth hurts, and I need something for the pain. Indicates: lower right Observations: No swelling or obvious fistula/abscess noted at this time. #30 appears to be missing some tooth structure on dol surfaces Comments - Inmate/Patient would like tooth extracted or treated. Will forward to provider for consideration of medication. [place] - Treatment for # 30 Holden Gan, [facility] Normal [facility] HCV Ab IA Qn (S)on 3 HCV Ab Ql (S) Non-Reactive Nonreactive [facility] Interpretation and review of laboratory results Normal [facility] HEPATIC FUNCTION PANELon Albumin [Mass/Vol] 3.9 g/dL 3.4 - 5.1 g/dL [facility] ALP [Catalytic activity/Vol] 70 U/L [facility] ALT [Catalytic activity/Vol] 18 U/L [facility] AST [Catalytic activity/Vol] 13 U/L [facility] Bilirubin [Mass/Vol] 0.4 mg/dL 0.1 - 1 .5 mg/dL [facility] Bilirubin.direct [Mass/Vol] 0.08 mg/dL Low 0.10 - 0.30 mg/dL [facility] Interpretation and review of laboratory results Abnormal [facility] Protein [Mass/Vol] 6.1 g/dL Low 6.2 - 8.3 g/dL [facility] HEPATITIS A IGM ANTIBODYon 1 12-04-2022 HAV IgM IA Ql Non-Reactive Nonreactive [facility] Interpretation and review of laboratory results Normal [facility] HEPATITIS B SURFACE ANTIGENo n 10-04-2023 HBV surface Ag Ql (S) Non-Reactive Non-Reactive [facility] Interpretation and review of laboratory results Normal [facility] HIV 1 and 2 Ab and HIV 1 p24 Ag panel IAon 10-04-2023 HIV 1+2 Ab+HIV1 p24 Ag IA Ql Non-Reactive Non-Reactive [facility] Comment on above: No laboratory eviden ce for HIV Infection. Negative result does not rule out acute HIV infection. If acute HIV infection is suspected, recommend ordering an HIV-1 RNA quanitification test. Interpretation and review of laboratory results Normal [facility] HIV Information: [place] Rev. code 3701.243(E): This information has been disclosed to you from confidential records protected from disclosure by state law. You shall make no further disclosure of this information without the specific, written, and informed release of the individual to whom it pertains, or as otherwise permitted by state law. A general authorization for the release of medical or other information is not sufficient for the purpose of the release of HIV test results or diagnoses. [facility] EKG 12 LEAD - PERFORMon 10-2 Diagnosis Normal sinus rhythm Normal ECG No previous ECGs available Confirmed by Simona Jung ([id number]) on 09/24/2023 7:50:21 PM [facility] P wave Atrium by EKG 63 BPM Metr FLeal P wave axis 78 degrees [facility] P-R Interval 186 ms [facility] Q-T interval 398 ms [facility] Q-T interval corrected 407 ms [facility] QRS axis 84 degrees [facility] QRS duration 98 ms [facility] T wave axis 79 degrees [facility] COVID/INFLUENZAon 09-19-2023 FLUAV RNA SYD+probe Ql (Nph) Not detected Not Detected [facility] Comment on above: Not Detected results are indicative of the absence of Influenza A in the specimen submitted for testing. False negative results are possible based on the timing and quality of specimen submitted for testing. This assay was performed by Multiplex targeted Nucleic Acid Amplification on the [employer] System ([employer] [place], [place]) using Claims Processor Mediated Amplification (TMA) technology. FLUBV RNA SYD+probe Ql (Nph) Not detected Not Detected [facility] Comment on above: Not Detected results are indicative of the absence of Influenza B in the specimen submitted for testing. False negative results are possible based on the timing and quality of specimen submitted for testing. This assay was performed by Multiplex targeted Nucleic Acid Amplification on the [employer] System ([employer] [place], [place]) using Claims Processor Mediated Amplification (TMA) technology. Interpretation and review of laboratory results Abnormal [facility] SARS-CoV-2 (COVID-19) RNA SYD+probe Ql (Unsp spec) Detected Abnormal Not Detected [facility] Comment on above: Detected results are indicative of the presence of the SARS-CoV-2 in the specimen submitted for testing. Clinical correlation with patient history and other diagnostic information is necessary to determine patient infection status. This assay was performed by Multiplex targeted Nucleic Acid Amplification on the [employer] PantherTM System ([employer] [place], [place]) using Claims Processor Mediated Amplification (TMA) technology. This test is intende d for use only under Emergency Use Authorization (EUA). This test was developed, and its performance characteristics determined by [facility] which is certified under CLIA as qualified to perform high complexity clinical laboratory testing. [facility] NOVEL CORONAVIRUS (COVID-19) Ordered By: Nataliia Wynn on 09-15-2023 SARS-CoV-2 (COVID-19) RNA SYD+probe Ql (Unsp spec) Not detected Not Detected [facility] Comment on above: This assay was perfo rmed using [employer] RTPCR technology. SARS-CoV-2 (COVID-19) RNA NA A+probe Ql (Unsp spec)Ordered By: Nataliia Wynn on 09-15-2023 Interpretation and review of laboratory results Normal [facility] SARS-CoV-2 (COVID-19) Ab IA Ql Not Detected results are indicative of the absence of SARS-CoV-2 in the specimen submitted for testing. False negative results are possible based on the timing and quality of specimen submitted for testing. This test is intended for use only under Emergency Use Authorization (EUA). This test was developed, and its performance characteristics determined by [facility] which is certified under CLIA as qualified to perform high complexity clinical laboratory testing. [facility] TOXICOLOGY SCREEN, UNCONFIRM EDon 09-07-2023 Amphetamines Ql (U) Positive Abnormal Negative [facility] Barbiturates Screen Ql (U) Negative Negative [facility] Benzodiazepines Ql (U) Negative Negative [facility] Benzoylecgonine Screen Ql (U) Positive Abnormal Negative [facility] Buprenorphine+Norbupr enorphine Screen Ql (U) Negative [facility] Ethanol Screen Ql (U) [facility] fentaNYL Screen Ql (U) Negative Negative ng/mL [facility] HYDROcodone Screen Ql (U) Negative Negative [facility] Interpretation and review of laboratory results Abnormal [facility] Methadone Screen Ql (U) Negative Negative [facility] Opiates Ql (U) Negative Negative [facility] oxyCOD[facility] Ql (U) Negative [facility] Comment on above: Oxycodone and metabo lites of Oxycodone (Oxymorphone, Noroxycodone, and Noroxymorphone) are measured/detected in this assay method. Phencyclidine Ql (U) Negative [facility] Tetrahydrocannabinol Screen Ql (U) Negative Negative [facility] This toxicology scre en provides unconfirmed analytical results suitable for clinical management. Results are reported as positive (at or above the cutoff) or negative (below the cutoff). Amphetamines 1000 ng/mL Barbiturates 200 ng/mL Methadone 300 ng/mL Opiates 300 ng/mL Oxycodone 100 ng/mL Fentanyl 1 ng/mL Hydrocodone 100 ng/mL Benzodiazepines 200 ng/mL Cocaine Metabolite 300 ng/mL PCP 25 ng/mL THC 50 ng/mL Buprenorphine 5 ng/mL Alcohol 10 mg/dL [facility] XR KNEE RIGHT (1-2 VIEWS)on 04-29-2023 XR KNEE RIGHT (1-2 VIEWS) EXAMINATION: TWO XRAY VIEWS OF THE RIGHT KNEE 04/29/2023 2:46 pm COMPARISON: None. HISTORY: ORDERING SYSTEM PROVIDED HISTORY: quadriceps tendon pain - cant fully extend knee TECHNOLOGIST PROVIDED HISTORY: Reason for exam:->quadriceps tendon pain - cant fully extend knee What reading provider will be dictating this exam?->CRC FINDINGS: There is no fracture or dislocation. Patella is in normal position. No synovial effusion. Joint spaces are well maintained. IMPRESSION: No fracture or dislocation. Joint spaces are intact. Interpreted by: Khai Barba DO Signed by: Khai Barba DO 04/29/23 Final result Normal [facility] No fracture or dislocation. Joint spaces are intact. [facility] RADIOLOGY EXAMINATION: TWO XRAY VIEWS OF THE RIGHT KNEE 04/29/2023 2:46 pm COMPARISON: None. HISTORY: ORDERING SYSTEM PROVIDED HISTORY: quadriceps tendon pain - cant fully extend knee TECHNOLOGIST PROVIDED HISTORY: Reason for exam:->quadriceps tendon pain - cant fully extend knee What reading provider will be dictating this exam?->CRC FINDINGS: There is no fracture or dislocation. Patella is in normal position. No synovial effusion. Joint spaces are well maintained. [facility] RADIOLOG[facility] Khai Barba DO - 04/29/2023 EXAMINATION: TWO XRAY VIEWS OF THE RIGHT KNEE 04/29/2023 2:46 pm COMPARISON: None. HISTORY: ORDERING SYSTEM PROVIDED HISTORY: quadriceps tendon pain - cant fully extend knee TECHNOLOGIST PROVIDED HISTORY: Reason for exam:->quadriceps tendon pain - cant fully extend knee What reading provider will be dictating this exam?->CRC FINDINGS: There is no fracture or dislocation. Patella is in normal position. No synovial effusion. Joint spaces are well maintained. IMPRESSION: No fracture or dislocation. Joint spaces are intact. [employer] Phone: Radiology Study observation (narrative) [employer] Phone: XR KNEE RIGHT (1-2 VIEWS)Ord ered By: Khai Barba on 04-29-2023 [employer] Phone: NOVEL CORONAVIRUS (COVID-19) Ordered By: Karen Villafana on 01-04-2023 SARS-CoV-2 (COVID-19) RNA SYD+probe Ql (Unsp spec) Detected Abnormal Not Detected [facility] Comment on above: This assay was perfo rmed using [employer] RTPCR technology. SARS-CoV-2 (COVID-19) RNA SYD+probe Ql (Unsp spec) Detected results are indicative of the presence of the SARS-CoV-2 in the specimen submitted for testing. Clinical correlation with patient history and other diagnostic information is necessary to determine patient infection status. This test is intended for use only under Emergency Use Authorization (EUA). This test was developed, and its performance characteristics determined by [facility] which is certified under CLIA as qualified to perform high complexity clinical laboratory testing. [facility] SARS-CoV-2 (COVID-19) RNA NA A+probe Ql (Unsp spec)Ordered By: Karen Villafana on 01-04-2023 Interpretation and review of laboratory results Abnormal [facility] NOVEL CORONAVIRUS (COVID-19) on 01-02-2023 SARS-CoV-2 (COVID-19) RNA SYD+probe Ql (Unsp spec) Not detected Not Detected [facility] Comment on above: This assay was perfo rmed using [employer] Nucleic Acid Amplification technology (RTPCR). SARS-CoV-2 (COVID-19) RNA NA A+probe Ql (Unsp spec)on 01-02-2023 Interpretation and review of laboratory results Normal [facility] SARS-CoV-2 (COVID-19) Ab IA Ql Not Detected results are indicative of the absence of SARS-CoV-2 in the specimen submitted for testing. False negative results are possible based on the timing and quality of specimen submitted for testing. This test is intended for use only under Emergency Use Authorization (EUA). This test was developed, and its performance characteristics determined by [facility] which is certified under CLIA as qualified to perform high complexity clinical laboratory testing. [facility] TB INTRADERMAL TESTon 2022 PPD reaction 0.0 mm [facility] Tan 07-28-2021 EMERGENCY PHYSICIAN REPORT This is a preliminary report only, as the practitioner review and authentication has not occurred. [facility] ER PHYSICIAN ASSESSMENT DEMOGRAPHICS [employer] Patient: CHECO OSBORNE Sex: M : 1975 Age: 45 yr Account No: [id number] Registration Date: 14:36 07/28/2021 Address: [address] [place] [address] Address: [place] [address] REGISTRATION ED Number: [id number] Marital Status: X Financial Class: [facility] TRIAGE Priority: 4 - Semi Urgent Complaint: Cough and Congestion Complaint: Headache Stated Complaint: feeling unwell since last night. PT states feels like has a sinus infection. denies loss of taste or smell, denies nausea, vomiting, denies diarrhea. denies loss of appetite or cough. Arrival Date: 07/28/2021 14:36 Triage Date: 07/28/2021 15:03 Mode of Arrival: *Privately Owned Vehicle WC: N Language: Azeri Transport: Ambulatory/Walk In BED [facility] PATIENT NAME: CHECO OSBORNE [address] MEDICAL REC #: [id number] [place] [address] EMERGENCY DEPARTMENT REPORT EMERGENCY DEPARTMENT PHYSICIAN PROVIDERS TRIAGE HISTORY ALLERGIES Allergic To: No Known Allergies 07/28/2021 15:12 BRR CURRENT MEDS Name: None 07/28/2021 15:12 BRR ILLNESS Illness: *None 07/28/2021 15:12 BRR PAST SURGERY HIST Surgery: None 07/28/2021 15:12 BRR PAST SOCIAL HIST Social History: Lives with family or significant other 07/28/2021 15:12 BRR Social History: Alcohol - None 07/28/2021 15:12 BRR Social History: Recreational Drugs - None 07/28/2021 15:12 BRR Social History: Smoker-0.5 PPD 07/28/2021 15:12 BRR NURSING ASSESSMENT ASSESSMENT NOTES TREATMENT MEDICATIONS [facility] PATIENT NAME: CHECO OSBORNE [address] [facility] [address] MEDICAL REC #: [id number] [place] [address] EMERGENCY DEPARTMENT REPORT EMERGENCY DEPARTMENT PHYSICIAN IV I AND O VITALS VS-ROUTINE Time: 07/28/2021 15:03 B/P: 136/76 - Left Upper Arm - Sitting - Machine Pulse: 94 - Monitor Resp: 20 Sa02: 96 Room Air Temp: 98.30 F - Oral 07/28/2021 15:05 CTJ VS-Pain Time: 07/28/2021 15:03 Pain Level: 4 07/28/2021 15:05 CTJ VS-GCS Time: 07/28/2021 15:03 07/28/2021 15:05 CTJ VS-HT/WT Time: 07/28/2021 15:03 Ht: 69 in. Stated Weight: 175 lbs Stated 07/28/2021 15:05 CTJ VS-Visual Time: 07/28/2021 15:03 07/28/2021 15:05 CTJ VS-FHT Time: 07/28/2021 15:03 07/28/2021 15:05 CTJ VS-Notes Time: 07/28/2021 15:03 07/28/2021 15:05 CTJ VS-ROUTINE Time: 07/28/2021 15:05 07/28/2021 15:05 CTJ VS-Pain Time: 07/28/2021 15:05 07/28/2021 15:05 CTJ VS-GCS Time: 07/28/2021 15:05 07/28/2021 15:05 CTJ VS-HT/WT Time: 07/28/2021 15:05 07/28/2021 15:05 CTJ VS-Visual Time: 07/28/2021 15:05 07/28/2021 15:05 CTJ VS-FHT Time: 07/28/2021 15:05 07/28/2021 15:05 CTJ VS-Notes Time: 07/28/2021 15:05 map=99 07/28/2021 15:05 CTJ ORDERS LBE 07/28/2021 17:53 N/A Ordered: 07/28/2021 17:53 By ANA MARIA REYNA [facility] PATIENT NAME: CHECO OSBORNE [facility] [address] MEDICAL REC #: [id number] [place] [address] EMERGENCY DEPARTMENT REPORT EMERGENCY DEPARTMENT PHYSICIAN DISCHARGE Diagnosis: LWT 0 07/28/2021 17:53 Disposition: Time: 07/28/2021 17:53 Discharge Time: 07/28/2021 17:53 Type: LBE Condition: LBE no answer x 2 Referral: 07/28/2021 17:53 BRR PRESCRIPTIONS CHARGES SIGNATURE ANA MARIA REYNA RN BRR SHELBY Emissary [facility] PATIENT NAME: CHECO OSBORNE [address] MEDICAL REC #: [id number] [place] [address] EMERGENCY DEPARTMENT REPORT EMERGENCY DEPARTMENT PHYSICIAN Normal [facility] ED NOTEon 08-21-2019 ED NOTE HNO ID: [id number] Author: Lien Christy RN Service: Nursing Author Type: Registered Nurse Type: ED Notes Filed: 08/22/2019 9:52 AM Note Text: Emergency Services: ED Call Back Questionnaire SERVICE DATE: 08/20/2019 Are you feeling better? Yes Any questions about discharge instructions and follow-up care? No Were you able to make a follow up appointment? No, patient states he did not schedule f/u appointment yet. Pt encouraged to call Saturday morning to make appointment Do you have any further questions? No Is there anything that we could have done differently to improve your ED visit? No SIGNATURE: Lien Christy RN PATIENT NAME: Checo Osborne DATE: August 22, 2019 TIME: 9:51 AM [facility] ED NOTE HNO ID: [id number] Author: Laurel (Rn) FER Mcclelland Service: ? Author Type: Registered Nurse Type: ED Notes Filed: 08/20/2019 10:25 PM Note Text: Pt provided with discharge paperwork, prescriptions and follow-up information. Denies questions at this time. Pt left the ED in stable condition, ambulatory with a steady gait. Normal [facility] ALLIED HEALTHon 08-20-2019 ALLIED HEALTH HNO ID: [id number] Author: PAXTON Vasques (Ct) Service: Radiology Author Type: Financial Service Rep Type: Allied Health Filed: 08/20/2019 7:48 PM Note Text: Radiology Service Progress Note DATE OF SERVICE: August 20, 2019 TIME: 7:47 PM PATIENT IDENTITY VERIFICATION COMPLETED USING TWO (2) STANDARD IDENTIFIERS: Name and Date of confirmed by patient verbally. PATIENT GENDER DATA: Male PATIENT RELEVANT IMPLANT DATA REVIEWED: Not Applicable ALLERGIES: Reviewed and unchanged CONTRAST ALLERGY: NO. EXAM: CT -CONTRAST INDUCED NEPHROPATHY RISK FACTORS: Not applicable CREATININE: Creatinine Date Value Ref Range Status 08/20/2019 0.79 0.70 - 1.40 mg/dL Final 01/11/2019 1.03 0.70 - 1.40 mg/dL Final 04/13/2018 1.07 0.73 - 1.22 mg/dL Final eGFR-All Other Races Date Value Ref Range Status 08/20/2019 >60 >60 . Final eGFR- Date Value Ref Range Status 08/20/2019 >60 >60 Final P.O.C.T. RESULTS: POC done: Yes, See Lab Tab August 20, 2019 TREATMENT: N/A and No Hydration needed. PERIPHERAL IV DATA: Inpatient - refer to LDA documentation RADIOLOGY DEPARTMENT: CT; Exam(s) Completed: Neck SIGNATURE: PAXTON Vasques PATIENT NAME: Checo Osborne DATE: August 20, 2019 TIME: 7:47 PM Normal [facility] CBC and Differentialon 08-20 Abs Baso 0.00 k/uL Normal <0.11 [facility] Comment on above: Performed By: #### C BCDIF, CMP, LIPA, MG1 #### [facility] [address] [place] [address] Abs [place] 1.74 k/uL High <0.87 [facility] Comment on above: Performed By: #### C BCDIF, CMP, LIPA, MG1 #### [place] [address] Abs Neut 11.62 k/uL High 1.45-7.50 [facility] Comment on above: Performed By: #### C BCDIF, CMP, LIPA, MG1 #### [place] [address] ANC(includeSEG+BAND) 11.62 k/uL Normal [facility] Comment on above: Performed By: #### C BCDIF, CMP, LIPA, MG1 #### [place] [address] Basophils/100 WBC (Bld) 0.0 % Normal [facility] Comment on above: Performed By: #### C BCDIF, CMP, LIPA, MG1 #### [place] [address] DTYPE Manual Diff Normal [facility] Comment on above: Performed By: #### C BCDIF, CMP, LIPA, MG1 #### [place] [address] Eosinophils (Bld) [#/Vol] 0.17 10*3/uL Normal <0.46 [facility] Comment on above: Performed By: #### C BCDIF, CMP, LIPA, MG1 #### [place] [address] Eosinophils/100 WBC (Bld) 1.0 % Normal [facility] Comment on above: Performed By: #### C BCDIF, CMP, LIPA, MG1 #### [place] [address] Erythrocyte distribution width (RBC) [Ratio] 13.8 % Normal 11.5-15.0 [facility] Comment on above: Performed By: #### C BCDIF, CMP, LIPA, MG1 #### [place] [id number] Hematocrit (Bld) [Volume fraction] 45.7 % Normal 39.0-51.0 [facility] Comment on above: Performed By: #### C BCDIF, CMP, LIPA, MG1 #### [place] [id number] Hemoglobin (Bld) [Mass/Vol] 15.7 g/dL Normal 13.0-17.0 [facility] Comment on above: Performed By: #### C BCDIF, CMP, LIPA, MG1 #### [place] [phone] Lymphocytes (Bld) [#/Vol] 3.82 10*3/uL Normal 1.00-4.00 [facility] Comment on above: Performed By: #### C BCDIF, CMP, LIPA, MG1 #### [place] [phone] Lymphocytes/100 WBC (Bld) 22.0 % Normal [facility] Comment on above: Performed By: #### C BCDIF, CMP, LIPA, MG1 #### [place] [id number] MCH (RBC) [Entitic mass] 30.6 pG Normal 26.0-34.0 [facility] Comment on above: Performed By: #### C BCDIF, CMP, LIPA, MG1 #### [place] [phone] MCHC (RBC) [Mass/Vol] 34.4 g/dL Normal 30.5-36.0 [facility] Comment on above: Performed By: #### C BCDIF, CMP, LIPA, MG1 #### [place] [phone] MCV (RBC) [Entitic vol] 89.1 fL Normal 80.0-100.0 [facility] Comment on above: Performed By: #### C BCDIF, CMP, LIPA, MG1 #### [place] [address] Monocytes/100 WBC (Bld) 10.0 % Normal [facility] Comment on above: Performed By: #### C BCDIF, CMP, LIPA, MG1 #### [place] [address] Neutrophils/100 WBC (Bld) 67.0 % Normal [facility] Comment on above: Performed By: #### C BCDIF, CMP, LIPA, MG1 #### [place] [phone] Platelet mean volume (Bld) [Entitic vol] 10.6 fL Normal 9.0-12.7 [facility] Comment on above: Performed By: #### C BCDIF, CMP, LIPA, MG1 #### [place] [phone] Platelets (Bld) [#/Vol] Platelet estimate adequate Normal [facility] Comment on above: Performed By: #### C BCDIF, CMP, LIPA, MG1 #### [place] [address] Platelets (Bld) [#/Vol] 253 10*3/uL Normal 150-400 [facility] Comment on above: Performed By: #### C BCDIF, CMP, LIPA, MG1 #### [place] [address] RBC (Bld) [#/Vol] 5.13 10*6/uL Normal 4.20-6.00 [facility] Comment on above: Performed By: #### C BCDIF, CMP, LIPA, MG1 #### [place] [address] Red Cell Morph SEE COMMENT Normal [facility] Comment on above: Result Comment: Unre markable Performed By: #### C BCDIF, CMP, LIPA, MG1 #### [place] [address] WBC (Bld) [#/Vol] 17.35 10*3/uL High 3.70-11.00 [facility] Comment on above: Performed By: #### C BCDIF, CMP, LIPA, MG1 #### [facility] [address] [place] [address] CT NECK SOFT TISSUE W IVCONo n 08-20-2019 CT NECK SOFT TISSUE W IVCON * * *Final Report* * * * * * SEE BOTTOM OF REPORT FOR ADDENDED TEXT * * * DATE OF EXAM: Aug 20 2019 7:54PM [facility] 0013 - CT NECK SOFT TISSUE W IVCON / PROCEDURE REASON: Peritonsillar abscess * * * * Physician Interpretation * * * * * * * * * * * * ORIGINAL REPORT * * * * * * * * HISTORY: Throat pain. TECHNIQUE: Routine CT of neck with contrast, for which 100 cc of Omnipaque [address] Dose-Length Product (DLP): 442 mGy*cm. CT Dose Reduction Employed:Yes. Radiation Shielding Employed: N/A. COMPARISON: None. RESULT: There is a well-defined hypodense lesion with surrounding enhancement, irregular margins, and left peritonsillar region. Overall measurements are maximally 14 LR by 10 AP by 17 SI mm. There is surrounding mild edema and mild local mass effect. Inflammatory change does not extend below the level of the hyoid, and there is minor edema extending posteriorly into the parapharyngeal space and encroaching towards the prevertebral space. There is reactive lymphadenopathy. The glottis and periglottic tissues are normal. The thyroid gland is normal. There are emphysematous-type changes at the lung apices. There is no suspicious osseous lesion. Inferior views of the brain are unremarkable. IMPRESSION: 1. LEFT PERITONSILLAR ABSCESS, DETAILED 2. REACTIVE LYMPHADENOPATHY * * * * * * * * ADDENDUM #1 * * * * * * * * Additional impression: 3. EMPHYSEMATOUS CHANGES, ADVANCED FOR PATIENT'S AGE Rat Poisoner: VIVEK Transcribe Date/Time: Aug 20 2019 8:18P Dictated by : MARLEN SY MD This examination was interpreted and the report reviewed and electronically signed by: MARLEN SY MD on Aug 20 2019 8:15PM EST This document has been addended by: MARLEN SY MD on Aug 20 2019 8:18PM EST [id number] Normal [facility] Comp Metabolic Panelon 08-20 Albumin [Mass/Vol] 4.0 g/dL Normal 3.5-5.0 [facility] Comment on above: Performed By: #### C BCDIF, CMP, LIPA, MG1 #### [place] [phone] ALP [Catalytic activity/Vol] 89 U/L Normal 38-113 [facility] Comment on above: Performed By: #### C BCDIF, CMP, LIPA, MG1 #### [place] [phone] ALT [Catalytic activity/Vol] 18 U/L Normal 5-50 [facility] Comment on above: Performed By: #### C BCDIF, CMP, LIPA, MG1 #### [phone] Anion gap [Moles/Vol] 15 mmol/L Normal 9-18 [facility] Comment on above: Performed By: #### C BCDIF, CMP, LIPA, MG1 #### [phone] AST [Catalytic activity/Vol] 19 U/L Normal 7-40 [facility] Comment on above: Performed By: #### C BCDIF, CMP, LIPA, MG1 #### [place] [phone] Bilirubin [Mass/Vol] 0.5 mg/dL Normal 0.2-1.3 [facility] Comment on above: Performed By: #### C BCDIF, CMP, LIPA, MG1 #### [place] [phone] Calcium [Mass/Vol] 9.6 mg/dL Normal 8.5-10.5 [facility] Comment on above: Performed By: #### C BCDIF, CMP, LIPA, MG1 #### [place] [phone] Chloride [Moles/Vol] 103 mmol/L Normal 98-110 [facility] Comment on above: Performed By: #### C BCDIF, CMP, LIPA, MG1 #### [place] [phone] CO2 [Moles/Vol] 19 mmol/L Low 23-32 [facility] Comment on above: Performed By: #### C BCDIF, CMP, LIPA, MG1 #### [place] [phone] Creatinine [Mass/Vol] 0.79 mg/dL Normal 0.70-1.40 [facility] Comment on above: Performed By: #### C BCDIF, CMP, LIPA, MG1 #### [place] [phone] eGFR- Amer. >60 Normal >60 [facility] Comment on above: Performed By: #### C BCDIF, CMP, LIPA, MG1 #### [place] [phone] GFR/1.73 sq M predicted among non-blacks MDRD (S/P/Bld) [Vol rate/Area] mL/min/{1.73_m2} Normal >60 [facility] Comment on above: Performed By: #### C BCDIF, CMP, LIPA, MG1 #### [place] [phone] Glucose [Mass/Vol] 97 mg/dL Normal 65-100 [facility] Comment on above: Performed By: #### C BCDIF, CMP, LIPA, MG1 #### [place] [phone] Potassium [Moles/Vol] 3.9 mmol/L Normal 3.5-5.0 [facility] Comment on above: Performed By: #### C BCDIF, CMP, LIPA, MG1 #### [place] [id number] [place] [phone] Protein [Mass/Vol] 7.7 g/dL Normal 6.0-8.4 [facility] Comment on above: Performed By: #### C BCDIF, CMP, LIPA, MG1 #### [place] [phone] Sodium [Moles/Vol] 137 mmol/L Normal 135-146 [facility] Comment on above: Performed By: #### C BCDIF, CMP, LIPA, MG1 #### [place] [phone] Urea nitrogen [Mass/Vol] 14 mg/dL Normal 10-25 [facility] Comment on above: Performed By: #### C BCDIF, CMP, LIPA, MG1 #### [place] [phone] ED NOTEon 08-20-2019 ED NOTE HNO ID: [id number] Author: Laurel MillanRn) FER Mcclelland Service: ? Author Type: Registered Nurse Type: ED Notes Filed: 08/20/2019 7:22 PM Note Text: Received report from FER Ly. Assuming care at this time. [facility] ED NOTE HNO ID: [id number] Author: Isabelle MillanRn) FER Granado Service: ? Author Type: Registered Nurse Type: ED Notes Filed: 08/20/2019 4:38 PM Note Text: Bed: 19-ED Expected date: Expected time: Means of arrival: Comments: [facility] ED PROV NOTEon 08-20-2019 ED PROV NOTE HNO ID: [id number] Author: Landon Hines MD Service: Emergency Medicine Author Type: Physician Type: ED Provider Notes Filed: 08/21/2019 12:10 AM Note Text: ED Provider Note Patient Name: Checo Osborne SERVICE DATE: 08/20/19 History Patient presents with: Sore Throat: stared saturday and has been getting gradually worse. Noted son is recently diagnosed with strept thraot. Pt had fever saturday at 101.7F. Pt stated that years ago he had an abscess in his throat and it had to be lancec. Pt noted it feels the same as it was. Cough: generalized 43-year-old male presents to the emergency department for evaluation of sore throat, fever. Patient reports he woke Saturday with fevers and chills, generalized myalgias. Reports temperature max at home 101.7. States then developed sore throat, worse on the left side. Hx of [employer] that has required incision and drainage in the past. Reports his son was recently diagnosed with strep throat. He reports pain worse with swallowing. He denies any trismus or drooling. He has been able to maintain his own secretions. He denies any associated dental pain, facial swelling. Denies any neck stiffness. No past medical history on file. No past surgical history on file. No family history on file. Social History Tobacco Use - Smoking status: Current Every Day Smoker Packs/day: 0.50 Years: 15.00 Pack years: 7.50 Types: Cigarettes - Smokeless tobacco: Never Used Substance and Sexual Activity - Alcohol use: No Comment: social - Drug use: No - Sexual activity: Yes Partners: Female ALLERGIES No Known Allergies Review of Systems Constitutional: Positive for chills, fatigue and fever. Negative for appetite change. HENT: Positive for sore throat. Negative for congestion, dental problem, drooling, ear pain, facial swelling, postnasal drip, rhinorrhea, sinus pressure, sinus pain and sneezing. Eyes: Negative for photophobia, pain and visual disturbance. Respiratory: Negative for cough, chest tightness and shortness of breath. Cardiovascular: Negative for chest pain. Gastrointestinal: Negative for abdominal pain, diarrhea, nausea and vomiting. Genitourinary: Negative for flank pain. Musculoskeletal: Negative for back pain and neck pain. Skin: Negative for color change, pallor and rash. Neurological: Negative for dizziness, light-headedness and headaches. Hematological: Negative for adenopathy. Does not bruise/bleed easily. Psychiatric/Behavioral: Negative for agitation, behavioral problems, confusion and decreased concentration. Physical Exam BP 143/83 Pulse 82 Temp (Src) 99.1 (Oral) Resp 16 Ht 5' 10 (1.78m) Wt 177 lb (80.3kg) SpO2 95% BMI 25.40 kg/(m2). O2 Therapy: Room Air Physical Exam Constitutional: He is oriented to person, place, and time. Nontoxic, no acute distress. Maintaining own secretions. Speech clear. HENT: Head: Normocephalic and atraumatic. Posterior oropharynx erythematous. 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 No intraoral vesicles or lesions. Moist mucosa. No facial swelling, sinuses nontender. Eyes: EOM are normal. Neck: Normal range of motion. Mild left submandibular adenopathy Cardiovascular: Normal rate and intact distal pulses. Pulmonary/Chest: Effort normal and breath sounds normal. Faint expiratory wheeze Abdominal: Soft. Bowel sounds are normal. There is no tenderness. Musculoskeletal: Normal range of motion. Moves all extremities equally and independently Neurological: He is alert and oriented to person, place, and time. Ambulatory, no ataxia Skin: Skin is warm and dry. Capillary refill takes less than 2 seconds. No rash noted. Psychiatric: He has a normal mood and affect. His behavior is normal. Thought content normal. Nursing note and vitals reviewed. Diagnostic Testing ED Labs Ordered and Reviewed CBC + AUTO DIFF (AK,AV,EU,FV,HL,LAN,MM,SP) - Abnormal; Notable for the following components: Result Value Ref Range WBC 17.35 (*) 3.70 - 11.00 k/uL Abs Neut (ANC) 11.62 (*) 1.45 - 7.50 k/uL Abs [place] 1.74 (*) <0.87 k/uL All other components within normal limits COMPREHENSIVE METABOLIC PANEL (AK,AV,EU,FV,HL,LAN,MM,SP) - Abnormal; Notable for the following components: CO2 19 (*) 23 - 32 mmol/L All other components within normal limits RAPID STREP - ED(POC) MONONUCLEOSIS SCREEN (AK,AV,EU,FV,HL,LAN,MM,SP) INCISION/DRAINAGE Date/Time: 08/21/2019 12:06 AM Performed by: Landon Hines MD Authorized by: Landon Hines MD Consent: Consent obtained: Verbal Consent given by: Patient Risks discussed: Bleeding, incomplete drainage, pain and damage to other organs Alternatives discussed: Alternative treatment Location: Type: Abscess Size: 1cm Location: Mouth Mouth location: Peritonsillar (LEFT) Anesthesia (see MAR for exact dosages): Anesthesia method: Topical application and local infiltration Topical anesthesia: Ceticaine spray. Local anesthetic: Lidocaine 2% WITH epi Procedure type: Complexity: Simple Procedure details: Needle aspiration: yes Needle size: 18 G Incision depth: Submucosal Drainage: Purulent Drainage amount: 2cc. Post-procedure details: Patient tolerance of procedure: Tolerated well, no immediate complications ED Course / Clinical Impression Clinical Impressions as of Aug 20 2204 Peritonsillar abscess Other emphysema (HCC) MDM / Disposition / Plan Vital signs reviewed: Triage records were reviewed. Medical records were reviewed. Nursing notes were reviewed and incorporated The attending who evaluated and managed this patient was Dr. Landon Hines MD DDX: Physical exam and hx above cause concern for peritonsillar abscess, phlegmon, tonsillitis Labs/Imaging: Leukocytosis 17.35, no anemia No electrolyte or metabolic abnormalities mononucleosis negative CT - There is a well-defined hypodense lesion with surrounding enhancement, irregular margins, and left peritonsillar region. ?Overall measurements are maximally 14 LR by 10 AP by 17 SI mm. ?There is surrounding mild edema and mild local mass effect. ?Inflammatory change does not extend below the level of the hyoid, and there is minor edema extending posteriorly into the parapharyngeal space and encroaching towards the prevertebral space. ?There is reactive lymphadenopathy. ?The glottis and periglottic tissues are normal. ?The thyroid gland is normal. ?There are emphysematous-type changes at the lung apices. ?There is no suspicious osseous lesion. ?Inferior views of the brain are unremarkable. Meds given in ED: - IVF - toradol - unasyn Presentation and work-up consistent with Peritonsillar abscess This is a 43-year-old male presents to the emergency department for evaluation of fevers, chills, sore throat since Saturday. Son is a diagnosis of strep. Patient with history of peritonsillar abscess. On arrival, the patient is mildly tachycardic 102. Temp 99.1 Vitals otherwise stable. He is nontoxic and in no acute distress. Speech is clear, maintaining own secretions. Exam significant for mild left-sided tonsillar edema, posterior oropharynx erythema. Uvula midline without edema. Maintaining an airway. Remainder physical exam as above Labs negative or leukocytosis. Mononucleosis negative. No left-sided or metabolic disturbance. 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 ?Overall measurements are maximally 14 LR by 10 AP by 17 SI mm. ?There is surrounding mild edema and mild local mass effect. ?Inflammatory change does not extend below the level of the hyoid, and there is minor edema extending posteriorly into the parapharyngeal space and encroaching towards the prevertebral space. ?There is reactive lymphadenopathy. ?The glottis and periglottic tissues are normal. ?The thyroid gland is normal. ?There are emphysematous-type changes at the lung apices. ?There is no suspicious osseous lesion. ?Inferior views of the brain are unremarkable. Incidental findings - emphysematous changes pt made aware of findings, he is a smoker. Consults - ENT 2043 Dr Carolyn Guillen MD This patient presentation, labs, vitals and CT imaging. I Did discuss utility for bedside drainage versus admission for ENT consult. ENT comfortable with bedside drainage by ED attending successful, patient is able to follow up as outpatient. If necessary, keep patient can be admitted to the CDU for ENT consult tomorrow. Discussed with patient indications for bedside drainage versus admission. Patient is agreeable to bedside drainage. Performed by ED attending Dr Landon Hines, Pt tolerated well without complications Was observed for 30 minutes post procedure without complications remained at bedside throughout ED stay Was recommended by ENT to discharge the patient home on Augmentin, he is to follow up as outpatient in office. Pt given contact information for appropriate follow up Pt was educated on the red flags to return to the ED. Pt demonstrated and understanding and was in agreement with the plan of care. The patient was DISCHARGED: Counseled patient and spouse regarding lab results AND radiology results AND suspected diagnosis AND need for follow-up. Discharged home with verbal and written instructions. They were instructed to return as needed for persistent or worsening symptoms or any new concerns. Given a prescription for the following medication(s): augmentin Condition at time of disposition: improved and stable SIGNATURE: ALDEN Howell (Alden) ALDEN Beach 08/20/19 8097 Attending Note I have personally performed a face to face assessment of the patient and have reviewed the PA/MOOSE HUNTER note. My bishop findings include: History is a 43-year-old male presents with gradual onset left sided sore throat with subjective fevers with some chills the last week. Patient has a history of peritonsillar abscess no basilar required drainage. Exam is enlarged left tonsil. mildly muffled voice Assessment/Plan are CT confirmed peritonsillar abscess in the left. Tonsil aspirated for 2cc of purulent fluid (see procedure note). Patient immediately reported relief of pain and muffled voice resolved. He was discharged home with outpatient referral to ENT. Other additions or changes: None Signature: MD Landon Kim MD 08/21/19 0009 Landon Hines MD 08/21/19 0010 [facility] ED Triage Noteon 08-20-2019 ED Triage Note HNO ID: [id number] Author: Alayna Alvarez (Pa) Service: Emergency Medicine Author Type: Physician Nightclub Manager Type: ED Triage Notes Filed: 08/20/2019 3:50 PM Note Text: ED INTAKE NOTE Patient Name: Checo Osborne Service Date: 08/20/19 BRIEF HPI: Patient presents to the ED with c/o sore throat since Saturday, as well as radiation of pain into the ears and mild cough. Son recently diagnosed with strep. Fever 101.7 at home. 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 Equal/Even resp rate.Discharge instructions hi-lighted and reviewed with pt. Pt verbalized understanding. Will follow-up with physcian as instructed. No questions/concerns at time of discharge. Ambulated at discharge without difficulty. Normal [facility] ED PROV NOTEon 01-12-2019 ED PROV NOTE HNO ID: [id number] Author: ALDEN Cano (Pa) Service: Emergency Medicine Author Type: Physician Nightclub Manager Type: ED Provider Notes Filed: 01/11/2019 10:47 PM Note Text: ED Provider Note Patient Name: Checo Osborne SERVICE DATE: 01/11/19 History Patient presents with: Vomiting: states food poisoning, stomach cramping, body aches. c/o fevers 102.9 F yesterday, headache Flu Like Symptoms 43-year-old male, no significant past medical history - here for nausea, diarrhea, abdominal cramping ?2 days. Denies any fever or chills. No shortness of breath, chest pain or cough. Minimal diffuse abdominal pain with some nausea, no vomiting. Positive diarrhea. Denies any blood in his stool or urine. No dysuria. No past medical history on file. No past surgical history on file. No family history on file. Social History Social History Main Topics - Smoking status: Current Every Day Smoker Packs/day: 0.50 Years: 15.00 Types: Cigarettes - Smokeless tobacco: Never Used - Alcohol use No Comment: social - Drug use: No - Sexual activity: Yes Partners: Female ALLERGIES No Known Allergies Review of Systems Constitutional: Negative for chills and fever. HENT: Negative for facial swelling and sore throat. Eyes: Negative for visual disturbance. Respiratory: Negative for shortness of breath. Cardiovascular: Negative for chest pain. Gastrointestinal: Positive for abdominal pain, diarrhea and nausea. Negative for vomiting. Genitourinary: Negative for dysuria. Musculoskeletal: Negative for myalgias. Skin: Negative for rash. Neurological: Negative for headaches. Psychiatric/Behavioral: Negative for confusion. Physical Exam BP 134/89 Pulse 109 Temp (Src) 98 (Oral) Resp 16 Ht 5' 11 (1.80m) Wt 180 lb (81.6kg) SpO2 96% BMI 25.12 kg/(m2). Physical Exam Vital signs and Nursing notes were reviewed Gen Appearance: Patient is alert and oriented and in minimal acute distress. Neck: Supple, Trach/Thyroid normal EENT: PERRLA, EOMI, Conjunctivae normal. Skin: Warm and dry with no rash. Cardiovascular: Heart RRR, no gallops or rubs, no aorta enlargement or bruit noted. Respiratory: Lungs clear, no wheezing, no rales, normal breath sounds. Gastrointestinal: Positive bowel sounds, soft, flat, minimal diffuse abdominal tenderness with deep palpation, no rebound, guarding or rigidity. Musculoskeletal: No tenderness to extremities, No back or hip pain. Neurological: Pt is alert and oriented x 3, memory intact, no focal motor or sensory deficits noted. Diagnostic Testing Labs Reviewed COMPREHENSIVE METABOLIC PANEL (AK,AV,EU,FV,HL,LAN,MM,SP) - Abnormal; Notable for the following: Result Value CO2 22 (*) All other components within normal limits CBC + AUTO DIFF (AK,AV,EU,FV,HL,LAN,MM,SP) - Abnormal; Notable for the following: Hemoglobin 17.5 (*) Hematocrit 51.1 (*) Abs [place] 1.53 (*) All other components within normal limits MAGNESIUM BLOOD (AK,AV,EU,FV,HL,LAN,MM,SP) LIPASE BLOOD (AK,AV,EU,FV,HL,LAN,MM,SP) URINALYSIS WITH MICROSCOPIC (AK,AV,EU,FV,HL,LAN,MM,SP) The radiology studies that were performed were reviewed. Procedures ED Course / Clinical Impression Clinical Impressions as of Jan 11 2242 Non-intractable vomiting with nausea, unspecified vomiting type Diarrhea, unspecified type Abdominal cramping MDM / Disposition / Plan 43-year-old male with symptoms mentioned above. Previous medical records reviewed. Lab and imaging results discussed with patient. Patient given normal saline, Zofran, morphine in the ED. He is feeling much better. No vomiting or diarrhea while in the ED. He feels comfortable going home. Rx: Zofran, [place]. Follow-up family practice. The patient was DISCHARGED: Counseled patient regarding lab results AND radiology results AND suspected diagnosis AND need for follow-up. Discharged home with verbal and written instructions. They were instructed to return as needed for persistent or worsening symptoms or any new concerns. Condition at time of disposition: stable SIGNATURE: RONNIE Cano) ALDEN Gardner 01/11/19 585 Normal [facility] 01-11-2019 [facility] HNO ID: [id number] Author: PAXTON Saleh (Ct) Service: Radiology Author Type: Financial Service Rep Type: Allied Health Filed: 01/11/2019 9:43 PM Note Text: Radiology Service Progress Note PATIENT NAME: Checo Osborne DATE OF SERVICE: January 11, 2019 TIME: 9:43 PM PATIENT IDENTITY VERIFICATION COMPLETED USING TWO (2) METHODS: Patient confirmed name verbally and ID band matches.. PATIENT GENDER DATA: Male PATIENT RELEVANT IMPLANT DATA REVIEWED: Not Applicable CONTRAST INDUCED NEPHROPATHY RISK FACTORS: Not applicable CREATININE: Creatinine Date Value Ref Range Status 01/11/2019 1.03 0.70 - 1.40 mg/dL Final 04/13/2018 1.07 0.73 - 1.22 mg/dL Final 04/20/2014 1.03 0.67 - 1.17 mg/dL Final eGFR-All Other Races Date Value Ref Range Status 01/11/2019 >60 >60 . Final eGFR- Date Value Ref Range Status 01/11/2019 >60 >60 Final P.O.C.T. RESULTS: N/A January 11, 2019 RADIOLOGIST NOTIFIED?: No ALLERGIES: Reviewed and unchanged CONTRAST ALLERGY: NO. PERIPHERAL IV ACCESS: Inpatient: see LDA documentation RADIOLOGY DEPARTMENT: CT; Exam(s) Completed: Abdomen/Pelvis SIGNED BY: PAXTON Saleh January 11, 2019 9:43 PM Normal [facility] CBC and Differentialon 01-11 Abs Baso <0.03 Normal <0.11 [facility] Comment on above: Performed By: #### C BCDIF, CMP, LIPA, MG1 #### [place] [id number] Abs [place] 1.53 k/uL High <0.87 [facility] Comment on above: Performed By: #### C BCDIF, CMP, LIPA, MG1 #### [place] [id number] Abs Neut 6.85 k/uL Normal 1.45-7.50 [facility] Comment on above: Performed By: #### C BCDIF, CMP, LIPA, MG1 #### [place] [address] Basophils/100 WBC (Bld) 0.2 % Normal [facility] Comment on above: Performed By: #### C BCDIF, CMP, LIPA, MG1 #### [place] [address] DTYPE Auto Diff Normal [facility] Comment on above: Performed By: #### C BCDIF, CMP, LIPA, MG1 #### [place] [address] Eosinophils (Bld) [#/Vol] 0.20 10*3/uL Normal <0.46 [facility] Comment on above: Performed By: #### C BCDIF, CMP, LIPA, MG1 #### [place] [address] Eosinophils/100 WBC (Bld) 1.8 % Normal [facility] Comment on above: Performed By: #### C BCDIF, CMP, LIPA, MG1 #### [place] [address] Erythrocyte distribution width (RBC) [Ratio] 13.5 % Normal 11.5-15.0 [facility] Comment on above: Performed By: #### C BCDIF, CMP, LIPA, MG1 #### [place] [address] Hematocrit (Bld) [Volume fraction] 51.1 % High 39.0-51.0 [facility] Comment on above: Performed By: #### C BCDIF, CMP, LIPA, MG1 #### [place] [address] Hemoglobin (Bld) [Mass/Vol] 17.5 g/dL High 13.0-17.0 [facility] Comment on above: Performed By: #### C BCDIF, CMP, LIPA, MG1 #### [place] [id number] Lymphocytes (Bld) [#/Vol] 2.29 10*3/uL Normal 1.00-4.00 [facility] Comment on above: Performed By: #### C BCDIF, CMP, LIPA, MG1 #### [place] [address] Lymphocytes/100 WBC (Bld) 21.0 % Normal [facility] Comment on above: Performed By: #### C BCDIF, CMP, LIPA, MG1 #### [place] [id number] MCH (RBC) [Entitic mass] 30.7 pG Normal 26.0-34.0 [facility] Comment on above: Performed By: #### C BCDIF, CMP, LIPA, MG1 #### [place] [id number] MCHC (RBC) [Mass/Vol] 34.2 g/dL Normal 30.5-36.0 [facility] Comment on above: Performed By: #### C BCDIF, CMP, LIPA, MG1 #### [place] [id number] MCV (RBC) [Entitic vol] 89.6 fL Normal 80.0-100.0 [facility] Comment on above: Performed By: #### C BCDIF, CMP, LIPA, MG1 #### [place] [id number] Monocytes/100 WBC (Bld) 14.0 % Normal [facility] Comment on above: Performed By: #### C BCDIF, CMP, LIPA, MG1 #### [place] [id number] Neutrophils/100 WBC (Bld) 63.0 % Normal [facility] Comment on above: Performed By: #### C BCDIF, CMP, LIPA, MG1 #### [place] [id number] Platelet mean volume (Bld) [Entitic vol] 11.4 fL Normal 9.0-12.7 [facility] Comment on above: Performed By: #### C BCDIF, CMP, LIPA, MG1 #### [place] [address] Platelets (Bld) [#/Vol] 235 10*3/uL Normal 150-400 [facility] Comment on above: Performed By: #### C BCDIF, CMP, LIPA, MG1 #### [place] [address] RBC (Bld) [#/Vol] 5.70 10*6/uL Normal 4.20-6.00 [facility] Comment on above: Performed By: #### C BCDIF, CMP, LIPA, MG1 #### [place] [id number] WBC (Bld) [#/Vol] 10.89 10*3/uL Normal 3.70-11.00 [facility] Comment on above: Performed By: #### C BCDIF, CMP, LIPA, MG1 #### [place] [address] CT ABD/PEL W IVCONon -10-[address] ABD/PEL W IVCON * * *Final Report* * * DATE OF EXAM: Jan 11 2019 9:44PM [facility] 0530 - CT ABD/PEL W IVCON / PROCEDURE REASON: Abd pain, fever, no recent surgery * * * * Physician Interpretation * * * * EXAMINATION: CT ABDOMEN AND PELVIS WITH IV CONTRAST CLINICAL HISTORY: Abdominal pain and fever TECHNIQUE: CT of the abdomen and pelvis was performed using standard technique, scanning from just above the dome of the diaphragm to the symphysis pubis. Contrast: IV: 150 ml of Omnipaque 300 CT Radiation dose: Integrated Dose-length product (DLP) for this visit = 333 mGy*cm. CT Dose Reduction Employed: Automated exposure control (AEC) COMPARISON: CT abdomen and pelvis 04/13/2018. RESULT: Liver: No mass. Biliary: No bile duct dilation. Gallbladder is unremarkable. Spleen: No mass. No splenomegaly. Pancreas: No mass or duct dilation. Adrenals: No mass. Kidneys: No mass, calculus or hydronephrosis. 8 mm simple cyst in the midportion of the left kidney. GI tract: No dilation or wall thickening. The appendix appears normal. There is extensive diverticulosis of the sigmoid colon without focal adjacent inflammatory change. Lymph nodes: No abdominal or pelvic lymphadenopathy. Mesentery/Peritoneum: No ascites or mass. Vasculature: No abdominal aortic aneurysm. Pelvis: The urinary bladder is unremarkable. Trace free fluid in the left hemipelvis. No focal fluid collection to indicate abscess. Bones/Soft Tissues: The bones contain no worrisome lytic or sclerotic lesions. Lower thorax: The lung bases are clear. IMPRESSION: 1. No acute abnormality detected in the abdomen or pelvis. 2. Sigmoid diverticulosis without CT evidence of diverticulitis. Rat Poisoner: VIVEK Transcribe Date/Time: Jan 11 2019 9:45P Dictated by : CAROLYN EMANUEL MD This examination was interpreted and the report reviewed and electronically signed by: CAROLYN EMANUEL MD on Jan 11 2019 9:52PM EST [id number] Normal [facility] Comp Metabolic Panelon 01-11 Albumin [Mass/Vol] 4.2 g/dL Normal 3.5-5.0 [facility] Comment on above: Performed By: #### C BCDIF, CMP, LIPA, MG1 #### [place] [address] ALP [Catalytic activity/Vol] 88 U/L Normal 38-113 [facility] Comment on above: Performed By: #### C BCDIF, CMP, LIPA, MG1 #### [facility] [address] [place] [address] ALT [Catalytic activity/Vol] 21 U/L Normal 5-50 [facility] Comment on above: Performed By: #### C BCDIF, CMP, LIPA, MG1 #### [facility] [address] [place] [address] Anion gap [Moles/Vol] 12 mmol/L Normal 9-18 [facility] Comment on above: Performed By: #### C BCDIF, CMP, LIPA, MG1 #### [place] [id number] AST [Catalytic activity/Vol] 19 U/L Normal 7-40 [facility] Comment on above: Performed By: #### C BCDIF, CMP, LIPA, MG1 #### [place] [id number] Bilirubin [Mass/Vol] 0.2 mg/dL Normal 0.2-1.3 [facility] Comment on above: Performed By: #### C BCDIF, CMP, LIPA, MG1 #### [place] [phone] Calcium [Mass/Vol] 9.3 mg/dL Normal 8.5-10.5 [facility] Comment on above: Performed By: #### C BCDIF, CMP, LIPA, MG1 #### [place] [id number] Chloride [Moles/Vol] 105 mmol/L Normal 98-110 [facility] Comment on above: Performed By: #### C BCDIF, CMP, LIPA, MG1 #### [place] [id number] CO2 [Moles/Vol] 22 mmol/L Low 23-32 [facility] Comment on above: Performed By: #### C BCDIF, CMP, LIPA, MG1 #### [place] [phone] Creatinine [Mass/Vol] 1.03 mg/dL Normal 0.70-1.40 [facility] Comment on above: Performed By: #### C BCDIF, CMP, LIPA, MG1 #### [place] [id number] eGFR- Amer. >60 Normal >60 [facility] Comment on above: Performed By: #### C BCDIF, CMP, LIPA, MG1 #### [place] [address] GFR/1.73 sq M predicted among non-blacks MDRD (S/P/Bld) [Vol rate/Area] mL/min/{1.73_m2} Normal >60 [facility] Comment on above: Performed By: #### C BCDIF, CMP, LIPA, MG1 #### [place] [id number] Glucose [Mass/Vol] 100 mg/dL Normal 65-100 [facility] Comment on above: Performed By: #### C BCDIF, CMP, LIPA, MG1 #### [place] [address] Potassium [Moles/Vol] 3.9 mmol/L Normal 3.5-5.0 [facility] Comment on above: Performed By: #### C BCDIF, CMP, LIPA, MG1 #### [place] [id number] Protein [Mass/Vol] 7.4 g/dL Normal 6.0-8.4 [facility] Comment on above: Performed By: #### C BCDIF, CMP, LIPA, MG1 #### [place] [phone] Sodium [Moles/Vol] 139 mmol/L Normal 135-146 [facility] Comment on above: Performed By: #### C BCDIF, CMP, LIPA, MG1 #### [place] [phone] Urea nitrogen [Mass/Vol] 20 mg/dL Normal 10-25 [facility] Comment on above: Performed By: #### C BCDIF, CMP, LIPA, MG1 #### [place] [address] ED NOTEon 01-11-2019 ED NOTE HNO ID: [id number] Author: Ward (Rn) Nikko, RN Service: (none) Author Type: Registered Nurse Type: ED Notes Filed: 01/11/2019 9:39 PM Note Text: Patient transported to NH with Tech. Normal [facility] ED Triage Noteon 01-11-2019 ED Triage Note HNO ID: [id number] Author: ALDEN Peres Pa-C Service: Emergency Medicine Author Type: Physician Nightclub Manager Type: ED Triage Notes Filed: 01/11/2019 8:01 PM Note Text: ED INTAKE NOTE Patient Name: Checo Osborne Service Date: 01/11/19 Initial Provider Assessment: HPI:Periumbilical Pain to epigastrium pain since yesterday. States Fever up to 102.9 F Tmax. Took imodium and pepto today. + N/V/Diarrhea. No previous abd surgery. Still has GB and appendectomy. Exam: Reviewed nursing notes and vitals Heent: PERRLA, Oropharynx normal. Heart: RRR Lungs: Clear, no wheezing Abd: Soft, Nondistended, BS+, nontender Ext: No injury noted Assessment: Abd pain, N/V/D Plan: Eval and Tx Baldemar Fuentes PA-C January 11, 2019 7:59 PM SIGNATURE: Baldemar Fuentes PA-C Normal [facility] Lipaseon 01-11-2019 Lipase [Catalytic activity/Vol] 22 U/L Normal 12-70 [facility] Comment on above: Performed By: #### C BCDIF, CMP, LIPA, MG1 #### [facility] [address] [place] [address] Magnesiumon 01-11-2019 Magnesium [Mass/Vol] 2.2 mg/dL Normal 1.7-2.6 [facility] Comment on above: Performed By: #### C BCDIF, CMP, LIPA, MG1 #### [facility] [address] [place] [address] CBC and Differentialon 04-13 Abs Baso 0.05 k/uL Normal <0.11 [facility] Comment on above: Performed By: #### C BCDIF, CMP, LIPA ####[facility] [phone] Abs Gurabo 1.26 k/uL High <0.87 [facility] Comment on above: Performed By: #### C BCDIF, CMP, LIPA ####[place] [id number] Abs Neut 11.89 k/uL High 1.45-7.50 [facility] Comment on above: Performed By: #### C BCDIF, CMP, LIPA ####[place] [id number] Basophils/100 WBC Auto (Bld) 0.3 % Normal [facility] Comment on above: Performed By: #### C BCDIF, CMP, LIPA ####[place] [id number] Eosinophils 0.26 10*3/uL Normal <0.46 [facility] Comment on above: Performed By: #### C BCDIF, CMP, LIPA ####[place] [id number] Eosinophils/100 leukocytes 1.5 % Normal [facility] Comment on above: Performed By: #### C BCDIF, CMP, LIPA ####[place] [id number] Erythrocyte distribution width Auto Ratio (RBC) 13.5 % Normal 11.5-15.0 [facility] Comment on above: Performed By: #### C BCDIF, CMP, LIPA ####[place] [id number] Erythrocytes (RBC) 0.0 /100 WBC Normal 0 [facility] Comment on above: Performed By: #### C BCDIF, CMP, LIPA ####[place] [id number] Erythrocytes (RBC) 5.57 10*6/uL Normal 4.20-6.00 [facility] Comment on above: Performed By: #### C BCDIF, CMP, LIPA ####[place] [id number] Hematocrit (HCT) 47.5 % Normal 39.0-51.0 [facility] Comment on above: Performed By: #### C BCDIF, CMP, LIPA ####[place] [id number] Hemoglobin mass conc (Bld) 16.7 g/dL Normal 13.0-17.0 [facility] Comment on above: Performed By: #### C BCDIF, CMP, LIPA ####[place] [id number] Lymphocytes 3.92 10*3/uL Normal 1.00-4.00 [facility] Comment on above: Performed By: #### C BCDIF, CMP, LIPA ####[place] [id number] Lymphocytes/100 leukocytes 22.6 % Normal [facility] Comment on above: Performed By: #### C BCDIF, CMP, LIPA ####[place] [id number] MCH 30.0 pG Normal 26.0-34.0 [facility] Comment on above: Performed By: #### C BCDIF, CMP, LIPA ####[place] [id number] MCHC mass conc (RBC) 35.2 g/dL Normal 30.5-36.0 [facility] Comment on above: Performed By: #### C BCDIF, CMP, LIPA ####[place] [id number] MCV 85.3 fL Normal 80.0-100.0 [facility] Comment on above: Performed By: #### C BCDIF, CMP, LIPA ####[place] [id number] Monocytes/100 leukocytes 7.2 % Normal [facility] Comment on above: Performed By: #### C BCDIF, CMP, LIPA ####[place] [id number] Neutrophils/100 WBC Auto (Bld) 68.4 % Normal [facility] Comment on above: Performed By: #### C LAURA VO, LIPA ####[address] Platelet mean volume (PMV) 10.8 fL Normal 9.0-12.7 [facility] Comment on above: Performed By: #### C BCDHRUVF CMP, LIPA ####[address] Platelets 338 10*3/uL Normal 150-400 [facility] Comment on above: Performed By: #### C LAURA VO, LIPA ####[address] WBC (Leukocytes) 17.38 10*3/uL High 3.70-11.00 [facility] Comment on above: Performed By: #### C BCDHRUVF, LAURA, LIPA ####[address] FLANK WO IVCONon 04-13-[address] FLANK WO IVCON * * *Final Report* * *DATE OF EXAM: Apr 13 2018 3:33AM DOT 0529 - CT FLANK WO IVCON / REASON: Left flank pain * * * * Physician Interpretation * * * * EXAMINATION: CT ABDOMEN AND PELVIS WITHOUT IV CONTRAST (Renal stone protocol)CLINICAL HISTORY: Unspecified flank pain. Hematuria.TECHNIQUE: Non-contrast imaging of the abdomen and pelvis was performed through the urinary tract. Study performed without intravenous or oral contrast to evaluate for urinary tract calculus.MQ: CTAbdPelvF_1Contrast:IV contrast: NoneOral contrast: NoneCT Radiation dose: Integrated dose-length product (DLP) for this visit = 319 mGy*cm.CT Dose Reduction Employed: Automated exposure control(AEC) and iterative reconCOMPARISON: None.RESULT:Limitations: Unenhanced imaging is limited for the evaluation of some renal and other intra-abdominal and pelvic pathology.Urinary Tract:Right kidney and ureter: No calculus. No hydronephrosis. No finding to suggest cyst or mass in the unenhanced kidney.Left kidney and ureter: Questionable minute calculus in the distal left ureter proximal to the left ureterovesicular junction (series 2, image 152) . Mild left-sided hydronephrosis and hydroureter. Pelvic and periureteral edema No finding to suggest cyst or mass in the unenhanced kidney.Bladder: No calculus.Abdomen and Pelvis:Liver: Unremarkable.Biliary: UnremarkableSpleen: No splenomegaly.Pancreas: Unremarkable.Adrenals: Normal.GI Tract: No bowel dilation. Diverticulosis of the descending and sigmoid colonLymph Nodes: No lymphadenopathy.Mesentery /peritoneum: No ascites.Vasculature: UnremarkablePelvis: No mass or ascites.Bones/Soft Tissues: No acute abnormality.Lower thorax: Unremarkable.IMPRESSION:Q UESTIONABLE MINUTE CALCULUS DISTAL LEFT URETER WITH MILD LEFT-SIDED HYDRONEPHROSIS AND HYDROURETER. PERIPELVIC AND PERIURETERAL EDEMA SUPPORTIVE FOR AN OBSTRUCTIVE PROCESS Transcri ptionist: VIVEK Transcribe Date/Time: Apr 13 2018 3:38ADictated by : ABDIFATAH RODRIGUEZ MDThis examination was interpreted and the report reviewed and electronically signed by: ABDIFATAH RODRIGUEZ MD on Apr 13 2018 3:49AM [id number] Normal [facility] Comp Metabolic Panelon 04-13 Alanine aminotransferase (ALT) 26 U/L Normal 10-54 [facility] Comment on above: Performed By: #### C BCDIF, CMP, LIPA ####[place] [id number] [place] [id number] Albumin 4.3 g/dL Normal 3.9-4.9 [facility] Comment on above: Performed By: #### C BCDIF, CMP, LIPA ####[facility] Alkaline phosphatase (ALP) 80 U/L Normal 36-108 [facility] Comment on above: Performed By: #### C BCDIF, CMP, LIPA ####[place] [address] [address] [phone] Anion gap 11 mmol/L Normal 9-18 [facility] Comment on above: Performed By: #### C BCDIF, CMP, LIPA ####[place] [id number] Aspartate aminotransferase (AST) 20 U/L Normal 14-40 [facility] Comment on above: Performed By: #### C BCDIF, CMP, LIPA ####[place] [id number] Bilirubin (total) 0.2 mg/dL Normal 0.2-1.3 [facility] Comment on above: Performed By: #### C BCDIF, CMP, LIPA ####[place] [id number] Calcium 9.4 mg/dL Normal 8.5-10.2 [facility] Comment on above: Performed By: #### C BCDIF, CMP, LIPA ####[place] [id number] Chloride 102 mmol/L Normal 97-105 [facility] Comment on above: Performed By: #### C BCDIF, CMP, LIPA ####[place] [id number] CO2 27 mmol/L Normal 22-30 [facility] Comment on above: Performed By: #### C BCDIF, CMP, LIPA ####[place] [id number] Creatinine 1.07 mg/dL Normal 0.73-1.22 [facility] Comment on above: Performed By: #### C BCDIF, CMP, LIPA ####[place] [id number] eGFR (non-black) mL/min/{1.73_m2} Normal >60 [facility] Comment on above: Performed By: #### C BCDIF, CMP, LIPA ####[place] [id number] Glucose mass conc 142 mg/dL High 74-99 [facility] Comment on above: Performed By: #### C BCDIF, CMP, LIPA ####[facility] [place] [phone] Potassium molar conc 3.9 mmol/L Normal 3.7-5.1 [facility] Comment on above: Performed By: #### C BCDIF, CMP, LIPA ####[facility] [place] [phone] Protein 7.3 g/dL Normal 6.3-8.0 [facility] Comment on above: Performed By: #### C BCDIF, CMP, LIPA ####[facility] [place] [phone] Sodium 140 mmol/L Normal 136-144 [facility] Comment on above: Performed By: #### C BCDIF, CMP, LIPA ####[facility] [place] [id number] Urea nitrogen 13 mg/dL Normal 9-24 [facility] Comment on above: Performed By: #### C BCDIF, CMP, LIPA ####[place] 875920 [place] [phone] ED NOTEon 04-13-2018 ED NOTE HNO ID: [id number] thor: Meagan Ledesma (Rn), RNService: (none)Author Type: Registered NurseType: ED NotesFiled: 04/13/2018 5:22 AMNote Text: Pt received written and verbal discharge instructions. Pt verbalizesunderstanding. All questions answered. Pt education on medication anddosages. Pt verbalized understanding. Instructed pt to follow up with PCP.No acute distress noted. Instructed to come back to emergency departmentif symptoms worsen. Pt verbalized understanding. All belongings with pt. [facility] ED NOTE HNO ID: [id number] Author: Lucina Lacey (Rn), RN Service: (none) Author Type: Registered Nurse Type: ED Notes Filed: 04/13/2018 5:01 AM Note Text: Pt resting comfortably in bed. No acute distress or complaints at this time. [facility] ED NOTE HNO ID: [id number] Author: Lucina LaceyRn), RN Service: (none) Author Type: Registered Nurse Type: ED Notes Filed: 04/13/2018 4:05 AM Note Text: Clean catch urine specimen obtained and sent. [facility] ED NOTE HNO ID: [id number] Author: Lucina LaceyRn), RN Service: (none) Author Type: Registered Nurse Type: ED Notes Filed: 04/13/2018 4:06 AM Note Text: Pt resting in bed, breathing is unlabored and equal. Safety maintained, will continue to monitor. [facility] ED NOTE HNO ID: [id number] Author: Lucina LaceyRn), RN Service: (none) Author Type: Registered Nurse Type: ED Notes Filed: 04/13/2018 3:46 AM Note Text: Patient returned to the Emergency Department. [facility] ED NOTE HNO ID: [id number] Author: Lucina LaceyRn), RN Service: (none) Author Type: Registered Nurse Type: ED Notes Filed: 04/13/2018 3:36 AM Note Text: Patient transported to NH with Tech. [facility] ED NOTE HNO ID: [id number] thor: Lucina Lacey (Rn), RNService: (none)Author Type: Registered NurseType: ED NotesFiled: 04/13/2018 3:03 AMNote Text: Assumed care of patient. 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 Pt restingcomfortably in bed. No acute distress or complaints at this time. Willcontinue to monitor. [facility] ED NOTE HNO ID: [id number] Author: Mara Franks (Rn), RN Service: Nursing Author Type: Registered Nurse Type: ED Notes Filed: 04/13/2018 2:36 AM Note Text: Dr. King at bedside to assess patient. [facility] ED NOTE HNO ID: [id number] thor: Mara Franks (Rn), RNService: NursingAuthor Type: Registered NurseType: ED NotesFiled: 04/13/2018 2:35 AMNote Text:Pt educated on medication and medicated per MAR. No complaints at thistime. No distress noted, safety maintained. Will continue to monitor. [facility] ED NOTE HNO ID: [id number] Author: Mara Franks (Rn), RN Service: Nursing Author Type: Registered Nurse Type: ED Notes Filed: 04/13/2018 2:38 AM Note Text: Pt attempted to void; unable to at this time. [facility] ED NOTE HNO ID: [id number] Author: Mara Franks (Rn), RN Service: Nursing Author Type: Registered Nurse Type: ED Notes Filed: 04/13/2018 2:37 AM Note Text: Patient currently vomiting at bedside. Provider aware. [facility] ED NOTE HNO ID: [id number] thor: Mara Franks (Rn), RNService: NursingAuthor Type: Registered NurseType: ED NotesFiled: 04/13/2018 2:09 AMNote Text:Pt was brought to ED c/o LLQ pain that began around midnight this evening.Patient was woken up from sleep with severe pain. Patient is also c/oheartburn. Patient denies fevers or chills prior to pain, but reportssweating d/t pain at this current time. Patient denies N/V, but states Ithurts so bad, I feel like puking. Patient does not have any PMH and doesnot take medications regularly. Patient denies urinary symptoms, but hasnot voided since waking up. [facility] ED NOTE HNO ID: [id number] Author: Mara Franks (Rn), RN Service: (none) Author Type: Registered Nurse Type: ED Notes Filed: 04/13/2018 2:02 AM Note Text: Bed: ED-04 Expected date: 04/13/18 Expected time: 1:55 AM Means of arrival: Comments: EMS [facility] ED PROV NOTEon 04-13-2018 ED PROV NOTE HNO ID: [id number] thor: Daniel King DOService: Emergency MedicineAuthor Type: PhysicianType: ED Provider NotesFiled: 04/13/2018 5:48 AMNote Text:ED Provider NotePatient Name: Checo VangieN: [id number] DATE: 5/13/18HistoryPatient presents with:Abdominal PainPatient is a 42-year-old male presenting for abdominal pain. Patientstates this evening he developed acute onset of left lower quadrantabdominal pain. States he thought maybe he had to have a bowel movement.States every time he tries it causes pain in the left lower abdomen.Denies any pain or burning with urination. No noted blood. Denies anyrecent diarrhea or constipation. States that he started to feel nauseousand has had a couple episodes of vomiting from the pain. Pain is sharp innature and located only in the left lower quadrant. No radiation into theback or into the right side the abdomen. Never had anything like thisbefore. States that he tried some aspirin earlier today. She had aheadache. 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 medical coordinator pesticide use used: NoNo past medical history on file.No past surgical history on file.No family history on file.Social HistorySocial History Main Topics- Smoking status: Current Every Day Smoker Packs/day: 0.50 Years: 15.00 Types: Cigarettes- Smokeless tobacco: Never Used- Alcohol use No Comment: social- Drug use: No- Sexual activity: Yes Partners: FemaleALLERGIESNo Known AllergiesReview of SystemsConstitutional: Negative for fever.Respiratory: Negative for cough and shortness of breath.Cardiovascular: Negative for chest pain.Gastrointestinal: Positive for abdominal pain, nausea and vomiting.Negative for constipation and diarrhea.Genitourinary: Negative for dysuria.Musculoskeletal: Negative for back pain.Neurological: Negative for headaches.All other systems reviewed and are negative.Physical ExamBP 97/77 Pulse 81 Temp (Src) 98.6 (Oral) Resp 20 Wt 190 lb(86.2kg) SpO2 98%Physical ExamConstitutional: He is oriented to person, place, and time. He appearswell-developed. No distress.HENT:Head: Atraumatic.Right Ear: External ear normal.Left Ear: External ear normal.Nose: Nose normal.Eyes: Conjunctivae are normal. Right eye exhibits no discharge. Left eyeexhibits no discharge.Neck: No JVD present.Cardiovascular: Normal rate and regular rhythm.Pulmonary/Chest: Effort normal and breath sounds normal. No stridor. Norespiratory distress. He has no wheezes.Abdominal: Soft. Bowel sounds are normal. He exhibits no distension and nomass. There is tenderness. There is guarding.Moderate amount of pain to the left lower quadrant. Positive guarding.No masses felt on examination. No reproducible CVA tenderness. No rightlower quadrant pain with palpation.Musculoskeletal : He exhibits no deformity.Neurological: He is alert and oriented to person, place, and time.Skin: Skin is warm. No pallor.Psychiatric: He has a normal mood and affect. His behavior is normal.Nursing note and vitals reviewed.Diagnostic TestingED Labs Ordered and ReviewedCOMPREHENSIVE METABOLIC PANEL (AK,AV,EU,FV,HL,LAN,MM,SP) - Abnormal;Notable for the following: Result Value Ref Range Glucose 142 (*) 74 - 99 mg/dL All other components within normal limitsCBC + AUTO DIFF (AK,AV,EU,FV,HL,LAN,MM,SP) - Abnormal; Notable for thefollowing: WBC 17.38 (*) 3.70 - 11.00 k/uL Abs Neut (ANC) 11.89 (*) 1.45 - 7.50 k/uL Abs Gurabo 1.26 (*) <0.87 k/uL All other components within normal limitsURINALYSIS WITH MICROSCOPIC (AK,AV,EU,FV,HL,LAN,MM,SP) - Abnormal; Notablefor the following: Clarity Hazy (*) Clear Ketones, Urine Trace (*) Negative Hemoglobin/Blood,Ur Large (*) Negative WBC, Urine 5-10 (*) 0 - 5 /HPF RBC, Urine >100 (*) 0 - 3 /HPF Bacteria Present (*) 0 /HPF All other components within normal limitsLIPASE BLOOD (AK,AV,EU,FV,HL,LAN,MM,SP) CT FLANK WO IVCON Final Result IMPRESSION: QUESTIONABLE MINUTE CALCULUS DISTAL LEFT URETER WITH MILD LEFT-SIDED HYDRONEPHROSIS AND HYDROURETER. PERIPELVIC AND PERIURETERAL EDEMA SUPPORTIVE FOR AN OBSTRUCTIVE PROCESS Rat Poisoner: VIVEK Transcribe Date/Time: Apr 13 2018 3:38A Dictated by : ABDIFATAH RODRIGUEZ MD This examination was interpreted and the report reviewed and electronically signed by: ABDIFATAH RODRIGUEZ MD on Apr 13 2018 3:49AM ESTProceduresNoneMedical Decision MakingMDMPatient CT scan did show possible minute kidney stone on the left side.Does have some hydronephrosis a harder ureter consistent with a kidneystone. Urine came back positive for gross blood. Believe most likelyThat This Is a Kidney Stone That Is Currently Passing. Pain Is underControl. Vomiting Has Resolved. No signs of any kidney failure. Nosigns of any urinary tract infection or kidney infection. Presently CT ofhis abdomen did not show any acute process. This point time patient'scandidate be treated outpatient. We'll start him on some Naprosyn for hisdiscomfort. Also will refer short course of Juncos for the stone. Alsogiven Zofran for nausea and Flomax. Informed because of the CT resultsthat he should follow-up to be rechecked. Believe most likely that it tenisha stone but cannot rule out any other mass or lesion. Is aware that heneeds to follow-up to have this reevaluated to make her symptoms resolvedand no other further workup is needed.ED Course / Clinical ImpressionClinical Impressions as of Apr 13 531Left lower quadrant painKidney stonePlanThe patient was DISCHARGED: Counseled patient regarding lab results ANDradiology results AND suspected diagnosis AND need for follow-up. Dischargedhome with verbal and written instructions. They were instructed to returnas needed for persistent or worsening symptoms or any new concerns.Given a prescription for the following medication(s): Naprosyn, Juncos,Flomax, ZofranCondition at time of disposition: stableSIGNATURE: Daniel King, Elvia King, DO04/13/18 0548 Normal [facility] Lipaseon 04-13-2018 Lipase 26 U/L Normal 16- [facility] Comment on above: Performed By: #### C BCDIF, CMP, LIPA ####[facility] [phone] Urinalysis with Microscopico n 04-13-2018 Bilirubin, Urine Negative Normal Negative [facility] Comment on above: Performed By: #### U AWMIC ####[facility] [phone] Cast SEE COMMENT Normal 0 [facility] Comment on above: Result Comment: 0 Performed By: #### U AWMIC ####[place] [id number] Erythrocytes (RBC) 10*6/uL Critically abnormal 0-3 [facility] Comment on above: Performed By: #### U AWMIC ####[place] [id number] Hemoglobin mass conc (Bld) Large Critically abnormal Negative [facility] Comment on above: Performed By: #### U AWMIC ####[place] [id number] Leukest Negative Normal Negative [facility] Comment on above: Performed By: #### U AWMIC ####[place] [id number] pH of blood 6.0 [pH] Normal 4.5-8.0 [facility] Comment on above: Performed By: #### U AWMIC ####[place] [id number] Protein, Urine Negative Normal Negative [facility] Comment on above: Performed By: #### U AWMIC ####[place] [id number] Specific Mcintyre, Ur >=1.030 Normal 1.005-1.030 [facility] Comment on above: Performed By: #### U AWMIC ####[place] [id number] Urine, bacteria in sediment Present Critically abnormal 0 [facility] Comment on above: Performed By: #### U AWMIC ####[place] [id number] Urine, clarity Hazy Critically abnormal Clear [facility] Comment on above: Performed By: #### U AWMIC ####[place] [id number] Urine, color Yellow Normal Yellow [facility] Comment on above: Performed By: #### U AWMIC ####[place] [id number] Urine, epithelial cells in sediment SEE COMMENT [facility] Comment on above: Result Comment: Squa mous5-10 Performed By: #### U AWMIC ####[address] Urine, glucose presence Negative Normal [facility] Comment on above: Performed By: #### U AWMIC ####[address] Urine, ketones presence Trace Critically abnormal Negative [facility] Comment on above: Performed By: #### U AWMIC ####[place] [id number] Urine, mucus presence in sediment Few [facility] Comment on above: Performed By: #### U AWMIC ####[address] Urine, nitrite presence Negative Normal [facility] Comment on above: Performed By: #### U AWMIC ####[address] Urine, urobilinogen 0.2 Normal 0.2-1.0 [facility] Comment on above: Performed By: #### U AWMIC ####[address] WBC (Leukocytes) 5-10 Critically abnormal 0-5 [facility] Comment on above: Performed By: #### U AWMIC ####[address] Vital Signs Date Time Vital Sign Value Performing Clinician Facility 05-15-2025 04:23-0400 Body temperature 98 [degF] Dr. Willie Hansen MD Work Phone: [facility] 05-15-2025 04:23-0400 Diastolic blood pressure 88 mm[Hg] Dr. Willie Hansen MD Work Phone: [facility] 05-15-2025 04:23-0400 Heart rate 62 /min Dr. Willie Hansen MD Work Phone: [facility] 05-15-2025 04:23-0400 Respiratory rate 18 /min Dr. Willie Hansen MD Work Phone: [facility] 05-15-2025 04:23-0400 SaO2% (BldA) [Mass fraction] 97 % Dr. Willie Hansen MD Work Phone: [facility] 05-15-2025 04:23-0400 Systolic blood pressure 142 mm[Hg] Dr. Willie Hansen MD Work Phone: [facility] 05-14-2025 21:24-0400 Body height 180.[address] Willie Hansen MD Work Phone: [facility] 05-14-2025 21:24-0400 Body mass index (BMI) [Ratio] 22.4 kg/m2 Dr. Willie Hansen MD Work Phone: [facility] 05-14-2025 21:24-0400 Body weight 72.[address] Willie Hansen MD Work Phone: [facility] 11-04-2024 23:17-0500 Body mass index (BMI) [Ratio] 22.87 kg/m2 [facility] Provider Work Phone: [facility] 11-04-2024 23:17-0500 Body temperature 98.29 [degF] [facility] Provider Work Phone: [facility] 11-04-2024 23:17-0500 Body weight 72.3 kg [facility] Provider Work Phone: [facility] 11-04-2024 23:17-0500 Diastolic blood pressure 83 mm[Hg] [facility] Provider Work Phone: [facility] 11-04-2024 23:17-0500 Heart rate 65 /min [facility] Provider Work Phone: [facility] 11-04-2024 23:17-0500 Respiratory rate 16 /min [facility] Provider Work Phone: [facility] 11-04-2024 23:17-0500 SaO2% (BldA) [Mass fraction] 98 % [facility] Provider Work Phone: [facility] 11-04-2024 23:17-0500 Systolic blood pressure 121 mm[Hg] [facility] Provider Work Phone: [facility] 12-10-2023 17:58-0500 Body height 177.8 cm [facility] Provider Work Phone: [facility] 12-10-2023 17:58-0500 Body mass index (BMI) [Ratio] 21.67 kg/m2 [facility] Provider Work Phone: [facility] 12-10-2023 17:58-0500 Body temperature 98.01 [degF] [facility] Provider Work Phone: [facility] 12-10-2023 17:58-0500 Body weight 68.49 kg [facility] Provider Work Phone: [facility] 12-10-2023 17:58-0500 Diastolic blood pressure 79 mm[Hg] [facility] Provider Work Phone: [facility] 12-10-2023 17:58-0500 Heart rate 83 /min [facility] Provider Work Phone: [facility] 12-10-2023 17:58-0500 Respiratory rate 16 /min [facility] Provider Work Phone: [facility] 12-10-2023 17:58-0500 SaO2% (BldA) [Mass fraction] 96 % [facility] Provider Work Phone: [facility] 12-10-2023 17:58-0500 Systolic blood pressure 115 mm[Hg] [facility] Provider Work Phone: [facility] 09-30-2023 09:05-0400 Body temperature 97.9 [degF] [facility] Provider Work Phone: [facility] 09-30-2023 09:05-0400 Heart rate 89 /min [facility] Provider Work Phone: [facility] 09-30-2023 09:05-0400 SaO2% (BldA) [Mass fraction] 99 % [facility] Provider Work Phone: [facility] 09-24-2023 20:36-0400 Heart rate 63 /min [facility] Provider Work Phone: [facility] 09-13-2023 22:42-0400 Diastolic blood pressure 80 mm[Hg] [facility] Provider Work Phone: [facility] 09-13-2023 22:42-0400 Respiratory rate 18 /min [facility] Provider Work Phone: [facility] 09-13-2023 22:42-0400 Systolic blood pressure 114 mm[Hg] [facility] Provider Work Phone: [facility] 09-06-2023 13:40-0400 Body height 177.8 cm [facility] Provider Work Phone: [facility] 09-06-2023 13:40-0400 Body mass index (BMI) [Ratio] 21.75 kg/m2 [facility] Provider Work Phone: [facility] 09-06-2023 13:40-0400 Body weight 68.77 kg [facility] Provider Work Phone: [facility] 04-29-2023 14:00-0400 Body mass index (BMI) [Ratio] 24.39 kg/m2 Latanya Stroud MD [facility] 04-29-2023 14:00-0400 Body temperature 98.1 [degF] Latanya Stroud MD [facility] 04-29-2023 14:00-0400 Body weight 77.11 kg Latanya Stroud MD [facility] 04-29-2023 14:00-0400 Diastolic blood pressure 83 mm[Hg] Latanya Stroud MD [facility] 04-29-2023 14:00-0400 Heart rate 91 /min Latanya Stroud MD [facility] 04-29-2023 14:00-0400 Respiratory rate 18 /min Latanya Stroud MD [facility] 04-29-2023 14:00-0400 SaO2% (BldA) [Mass fraction] 96 % Latanya Stroud MD [facility] 04-29-2023 14:00-0400 Systolic blood pressure 133 mm[Hg] Latanya Stroud MD [facility] 01-14-2023 13:23-0500 Body temperature 97.39 [degF] [facility] Provider Work Phone: [facility] 01-14-2023 13:23-0500 Heart rate 84 /min [facility] Provider Work Phone: [facility] 01-14-2023 13:23-0500 SaO2% (BldA) [Mass fraction] 99 % [facility] Provider Work Phone: [facility] 12-26-2022 05:14-0500 Body height 177.8 cm [facility] Provider Work Phone: [facility] 12-26-2022 05:14-0500 Body mass index (BMI) [Ratio] 22.38 kg/m2 [facility] Provider Work Phone: [facility] 12-26-2022 05:14-0500 Body weight 70.76 kg [facility] Provider Work Phone: [facility] 12-26-2022 05:14-0500 Diastolic blood pressure 96 mm[Hg] [facility] Provider Work Phone: [facility] 12-26-2022 05:14-0500 Respiratory rate 18 /min [facility] Provider Work Phone: [facility] 12-26-2022 05:14-0500 Systolic blood pressure 144 mm[Hg] [facility] Provider Work Phone: [facility] Encounters Encounter Date Encounter Type Care Provider Facility Start: 05-14-2025 End: 05-15-2025 Emergency department patient visit Dr. Willie Hansen MD Work Phone: -Emergency Department Work Phone: Start: 11-12-2024 ambulatory [facility] Start: 11-04-2024 End: 12-03-2024 Subsequent hospital visit by physician [facility] Intake Provider Work Phone: [facility] [place] [facility] Comment on above: Screening for tuberc ulosis (Primary Dx); Opioid abuse; Cocaine abuse; Methamphetamine use disorder, severe, dependence (HCC) Start: 11-04-2024 End: 12-03-2024 ambulatory UNKNOWN PROVIDER Facility:[facility] Start: 02-19-2024 End: 02-24-2024 Evaluation and management of inpatient [facility] Start: 12-19-2023 ambulatory UNKNOWN PROVIDER Facili ty:[facility] Start: 12-11-2023 Orders Only Aleksandr Mullen MD Work Phone: [facility] [place] [facility] Start: 12-10-2023 End: 12-27-2023 Subsequent hospital visit by physician [facility] Int[facility] Provider Work Phone: [facility] [place] [facility] Comment on above: Depression, unspecif ied depression type (Primary Dx) Start: 09-06-2023 End: 10-07-2023 Subsequent hospital visit by physician [facility] Intake Provider Work Phone: [facility] [place] [facility] Comment on above: Inmate in correction al facility (Primary Dx); Cocaine abuse (HCC); Alcohol abuse; Opioid abuse (HCC); Encounter for laboratory testing for severe acute respiratory syndrome coronavirus 2 (SARS-CoV-2); Suspected severe acute respiratory syndrome coronavirus 2 (SARS-CoV-2) infection Start: 04-29-2023 End: 04-29-2023 [facility] Start: 04-29-2023 End: 04-29-2023 Emergency department patient visit Latanya Stroud MD [facility] ED Comment on above: Injury of quadriceps tendon (Primary Dx) Start: 12-26-2022 Orders Only Aleksandr Mullen MD Work Phone: [facility] [place] [facility] Start: 12-25-2022 End: 01-25-2023 Subsequent hospital visit by physician [facility] Provider Work Phone: [facility] [place] [facility] Comment on above: Inmate in correction al facility (Primary Dx); Opioid dependence with withdrawal (HCC); Encounter for laboratory testing for severe acute respiratory syndrome coronavirus 2 (SARS-CoV-2) Start: 04-13-2018 End: 04-13-2018 Emergency department patient visit [facility] Procedures Date Procedure Procedure Detail Performing Clinician Start: 05-15-2025 Urnls dip stick/tabl et reagent auto microscopy Dr. Willie Hansen MD Work Phone: Start: 05-14-2025 CT of abdomen and pe lvis without contrast Dr. Willie Hansen MD Work Phone: Start: 05-14-[address] Willie Hansen MD Work Phone: Start: 10-04-2023 Hepatitis antibody h aab igm antibody Melony Lew MD Work Phone: Start: 10-04-2023 Iaad ia hepatitis b surface antigen Melony Lew MD Work Phone: Start: 09-18-2023 COVID/INFLUENZA Stevie YANEZC Work Phone: Start: 09-14-2023 SARS-CoV-2 (COVID-19 ) RNA [Presence] in Unspecified specimen by SYD with probe detection Madiha Nicole [employer] Work Phone: Start: 09-13-2023 Ecg routine ecg w/le ast 12 lds trcg only w/o i&r To Be Assigned Start: 09-07-2023 Drug screen class list a Carly Clark [employer] Work Phone: Start: 04-29-2023 Radiologic examinati on knee 1/2 views Stacy YANEZC Work Phone: Start: 01-03-2023 SARS-CoV-2 (COVID-19 ) RNA [Presence] in Unspecified specimen by SYD with probe detection Aleksandr Mullen MD Work Phone: Start: 01-01-2023 SARS-CoV-2 (COVID-19 ) RNA [Presence] in Unspecified specimen by SYD with probe detection Aleksandr Mullen MD Work Phone: Start: 12-28-2022 Skin test tuberculos is intradermal Ward Saundra [employer] Work Phone: Plan of Treatment Date Care Activity Detail Author Start: 2025 Shingles (RZV) Vacci ne (1 of 2) [facility]ingles (RZV) [facility] Start: 05-15-2025 Bacteria identified in Urine by Culture Urine Culture [facility] Start: 05-15-2025 End: 05-15-2025 [facility] Start: 08-02-2024 COVID-19 Vaccine ( season) COVID-19 Vaccine ( season) [facility] Start: 08-02-2024 Influenza vaccination Influenza Vacc ine [facility] Start: 08-14-2023 Depression Screen Depression Screen [facility] Start: 08-02-2023 COVID-19 Vaccine ( season) COVID-19 Vaccine ( season) [facility] Start: 08-02-2023 Influenza vaccination Influenza Vacc ine (#1) [facility] Start: 07-02-2023 Influenza vaccination Flu vacc ine (Season Ended) [facility] Start: 12-26-2022 End: 01-26-2023 SARS-CoV-2 (COVID-19) RNA [Presence] in Unspecified specimen by SYD with probe detection NOVEL CORONAVIRUS (COVID-19) Lab Routine Encounter for laboratory testing for severe acute respiratory syndrome coronavirus 2 (SARS-CoV-2) Expected: 12/26/2022, Expires: 01/26/2023 [employer] Work Phone: Comment on above: Expected: 12/26/2022 , Expires: 01/26/2023 Start: 09-01-2022 Influenza vaccination Influenza Vacc ine (#1) [facility] Start: 11-08-2021 COVID-19 Vaccine (2 - Moderna series) COVID-19 Vaccine (2 - Moderna series) [facility] Start: 2020 Screening for malign ant neoplasm of colon [facility] Start: 2015 Lipid panel Lipids [facility] Start: 2010 [facility] Start: 1994 DTaP/Tdap/Td vaccine (1 - Tdap) DTaP/Tdap/Td vaccine (1 - Tdap) [facility] Start: 1994 Hepatitis A (HAV) Vaccine (optional start 19+ years) Hepatitis A (HAV) Vaccine (optional start 19+ years) [facility] Start: 1994 Hepatitis B vaccination Hepati tis B (HBV) Vaccine (1 of 3 - 19+ 3-dose series) [facility] Start: 1993 Hepatitis C screening Hepatitis C sc reen [facility] Start: 1993 Tetanus + diphtheria + acellular pertussis vaccine (product) Tdap Booster [facility] Start: 1990 HIV screening HIV screen [facility] Start: 1981 Pneumococcal 0-64 ye ars Vaccine (1 - PCV) Pneumococcal 0-64 years Vaccine (1 - PCV) [facility] Start: 1981 Pneumococcal vaccination [facility] Start: 02-25-1976 COVID-19 Vaccine (#1) COVID-19 Vacci ne (#1) [facility] Start: 1975 Hepatitis B vaccination Hepati tis B (HBV) Vaccine (1 of 3 - 3-dose series) [facility] Start: [facility] Screening for malign ant neoplasm of colon Colonoscopy [facility] Patient Education ED Kidney Ston e with Pain [facility] Work Phone: Patient referral [facility] Work Phone: Urine culture [facility] Immunizations Immunization Date Immunization Notes Care Provider [facility] 11-04-2024 tuberculin skin test ; purified protein derivative solution, intradermal [facility] Provider Work Phone: [facility] 12-26-2022 tuberculin skin test ; purified protein derivative solution, intradermal Aleksandr Mullen MD Work Phone: [facility] Work Phone: 10-11-2021 Moderna (primary 12+ yrs) COVID-19 vaccine, mRNA, spike protein, LNP, PF, 100 mcg/0.5 mL (BWV=066) Aleksandr Mullen MD Work Phone: [facility] 06-02-2021 tuberculin skin test ; purified protein derivative solution, intradermal Aleksandr Mullen MD Work Phone: [facility] 11-12-2020 tuberculin skin test ; purified protein derivative solution, intradermal Aleksandr Mullen MD Work Phone: [facility] 07-26-2020 tuberculin skin test ; purified protein derivative solution, intradermal Aleksandr Mullen MD Work Phone: [facility] 01-12-2020 tuberculin skin test ; purified protein derivative solution, intradermal Aleksandr Mullen MD Work Phone: [facility] 10-19-2019 tuberculin skin test ; purified protein derivative solution, intradermal Aleksandr Mullen MD Work Phone: [facility] Payers Date Payer Category Payer [employer] [id number] 2022 [employer] [id number] 2019 Unknown [employer] [id number] 2019-Present [id number] 2019 Unknown [id number] 1975 Unknown [id number] 1975 Unknown [id number] 1975 Unknown [id number] 1975 Unknown [id number] 1949 Unknown [id number] 1949 Unknown [id number] Social History Date Type Detail Facility Start: 11-12-2020 End: 08-14-2022 Tobacco smoking status NHIS Smokes tobacco daily [facility] History of tobacco use [facility] Start: 11-12-2020 End: 09-10-2023 Cigarettes smoked current (pack per day) - Reported 2 [facility] Start: 11-12-2020 Tobacco use and exposure Smokeless tobacco non-user [facility] History of tobacco use Chews Tobacco [facility] Start: 06-02-2021 End: 09-10-2023 Alcohol intake Current drinker of alcohol (finding) [facility] Start: 11-16-2014 Tobacco Comment chews tobacco [facility] Start: 11-16-2014 Alcohol Comment occassional [facility] Start: 1975 Sex Assigned At Not on file [facility] Start: 04-29-2023 Alcohol intake Lifetime non-d cruzito (finding) [employer] Work Phone: Start: 08-14-2022 History 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 [employer] Work Phone: Start: 08-14-2022 History 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 [employer] Work Phone: Start: 09-10-2023 Gender identity Not on file [facility] Start: 10-05-2012 Sex Male (finding) [facility] Start: 05-14-2025 Tobacco smoking stat us [facility] Current some day smoker [facility] Start: 1975 Sex Assigned At Male [facility] Clinical Notes 12-26-2022 to 05-15-2025 Note Date & Type Note Facility 05-15-2025 Discharge summary [facility] 05-14-2025 Radiology Diagnostic study note [facility] Imaging Services [address], [place] [id number] Abdomen/Pelvis without Cont MR#: [id number] Acct: [id number] Name: CHECO OSBORNE Rep #: [id number] : 1975 M 49 From: Ratna Metcalf MD PCP: Care Physician,No Primary Status: REG ER Study:Abdomen/Pelvis without Cont Date of Exa m: 05/14/25 Exam# [id number] Ordering Dr: Jl Hansen MD PROCEDURE: ABDOMEN/PELVIS WITHOUT CONT 05/14/2025 REASON FOR EXAM: POSS KIDNEY STONE- RLQ PAIN TECHNIQUE: ABDOMEN/PELVIS WITHOUT CONT Noncontrast technique limits evaluation of the abdominal and pelvic viscera. Coronal and Sagittal reconstruction series were provided. One or more dose reduction techniques were used (e.g., Automated exposure control, adjustment of the mA and/or kV according to patient size, use of iterative reconstruction technique). ORAL CONTRAST TYPE: None. COMPARISON: None. FINDINGS: Lung bases: Bibasilar atelectasis. The heart is normal in size. Liver: The unopacified liver is normal in size. No biliary ductal dilation. Gallbladder: No radiopaque stones within the gallbladder. Spleen: Normal in size. Pancreas: The unopacified pancreas is unremarkable. Adrenals: No adrenal mass. Kidneys: Tiny 1-2 mm stone at the right ureterovesical junction. Mild right hydroureteronephrosis. Unremarkable left kidney. Bladder: Mildly distended and unremarkable. Reproductive Organs: Unremarkable. Bowel: The bowel loops are nondilated. No ascites or pneumoperitoneum. Normal appendix. Mild distal colonic diverticulosis. Lymph nodes: Visualization is limited without the use of IV contrast. No lymphadenopathy. Vasculature: Mild diffuse atherosclerotic calcifications are noted. Bones: Unremarkable. CT/Abdomen/Pelvis without Cont IMPRESSION: Ureteral calculus at the right ureterovesical junction, with mild hydroureteronephrosis. Reading Location: [id number] CC: Dr. Willie Hansen MD; No Primary Care Physician ~ Rat Poisoner: Signed [facility] 05-14-2025 Discharge summary Note Date/Time May 15, 2025 4:20am [facility] Medical Records Department [address] [place] [id number] Emergency Department Summary 05/14/25 MR#: [id number] Acct: [id number] Name: CHECO OSBORNE Rep #:[id number] : 1975 49 From: Willie Hansen MD PCP: Care Physician,No Primary Status :REG ER Location: ED HPI History of Present Illness Chief Complaint: Abd Pain Informant: patient Narrative Narrative: 49-year-old male states he woke up last night with severe sudden right lower quadrant abdominal pain that ended up going away but then tonight it came back and again is severe and persistent. Nauseated but no vomiting. No radiation ormigration of the pain. He states he feels like he needs to have a bowel movement and to urinate at the same time but he cannot do either. When he did urinate earlier he denies any hematuria, dysuria, or other issues. States he has never had pain like this before. Denies any other systemic symptoms. According to EMS report he did methamphetamine just prior to arrival. [facility] Medical History (Updated 05/15/25 @ 03:[address] Willie Hansen MD) Drug abuse Home Medications ?Medication ?Instructions ?Recorded ?Last Taken ?Type oxycodone-acetaminophen 5 mg-325 1 tab PO Q6H PRN PRN Pain 3 days 05/15/25 Unknown Rx mg tablet #12 TABLETS tamsulosin 0.4 mg capsule 0.4 mg PO DAILY #7 caps 05/02 03/26 Unknown Rx Allergy/AdvReac Type Severity Reaction Status Date / Time No Known Allergies Allergy Verified 05/14/25 21:24 Social History Smoking Status: Current some day smoker tobacco type: cigarettes ROS ROS ED Constitutional Constitutional ED: Denies chills or fever(s) Eyes Eyes: Denies change in vision or diplopia ENT ENT ED: Reports nasal congestion and rhinorrhea; Denies sore throat Cardiovascular Cardiovascular: Denies chest pain, palpitations, pedal edema or radiating jaw, neck or arm pain Respiratory/Chest Respiratory/Chest: Denies cough, dyspnea or sputum Gastrointestinal Gastrointestinal: Reports abdominal pain and nausea; Denies diarrhea or vomiting Genitourinary Genitourinary ED: Denies dysuria or hematuria Musculoskeletal Musculoskeletal: Denies back pain or neck pain Integumentary Denies abscess or rash Neurologic Neurologic: Denies headache(s), paresthesias or weakness Psychiatric Psychiatric: Denies suicidal thoughts EXAM Physical Exam Const Vital Signs: 05/14/25 21:24 05/14/25 21:29 05/14/25 22:29 Temperature 96.7 F L 98.6 F 98.3 F Temperature Source Axillary Oral Oral Pulse Rate 66 75 77 Respiratory Rate 20 H 16 16 Blood Pressure 151/91 H 141/106 H 165/88 H Blood Pressure Mean 111 117 113 Pulse Ox 100 100 100 Oxygen Delivery Method Room Air Room Air Room Air 05/14/25 22:30 05/14/25 23:00 05/15/25 01:42 Temperature 98 F Temperature Source Oral Pulse Rate 77 89 Respiratory Rate 16 17 Blood Pressure 164/70 H 131/86 H Blood Pressure Mean 101 101 Pulse Ox 100 96 97 Oxygen Delivery Method Room Air Room Air Room Air 05/15/25 03:08 Temperature Temperature Source Pulse Rate 63 Respiratory Rate 16 Blood Pressure 125/99 H Blood Pressure Mean 107 Pulse Ox Oxygen Delivery Method Positive well nourished and well developed Constitutional Narrative: Mild painful distress. No resp distress. General Appearance ED: well developed and NAD HEENT Reports moist mucous membranes normocephalic and atraumatic Eyes PERRL and EOMs intact bilaterally Neck full ROM, supple and no JVD Resp normal respiratory effort and clear to auscultation bilaterally Cardio regular rate, regular rhythm and no murmurs GI non-distended GI Narrative: tender throughout RLQ. otherwise, NT. Auscultation: normoactive bowel sounds Palpation: soft; Negative for guarding or rebound tenderness present Back/Spine no CVA tenderness General Back: other FROM Extremity normal to inspection General Extremety ED: Negative for edema, pulses abnormal or tenderness General Extremity: Negative for edema or pulses abnormal Neuro oriented x3, CN's II-XII intact bilaterally and no sensory deficits noted Sensorium / Orientation: awake and alert Motor Exam: strength 5/5 throughout Psych Mood & Affect: anxious Skin no rashes or lesions noted and no wounds MDM MDM MDM Narrative Medical decision making narrative: History and exam more consistent with acute ureteral colic and obstructive uropathy and acute appendicitis or ruptured AAA. However in considering all of these I think CT warranted. I reviewed the CT images as well as result which I agree with, it is consistent with ureterolithiasis and resultant ureteral colic,mild hydroureteronephrosis. This explains the patient's pain. His pain is well-controlled here in the emergency department, but he was here for a while until he was able to produce enough urine for us to send a specimen, so he received a couple doses of pain medication. He is ambulatory and stable for discharge home, expectant management as this is very small, and given that it tenisha UVJ stone I am putting him on tamsulosin to see if it helps him pass it sooner. Urine shows leukocyte, some white blood cells but not as many as red, but I am sending it for culture because there are bacteria although this was a specimen he gave in a urinal that was then transferred to a sterile cup, my suspicion for infection is low here so I am not treating him with antibiotics; stable for discharge. Lab Data Attestation: I reviewed the patient's lab results. Labs: Laboratory Results - last 24 hr 05/14/25 05/15/25 21:41 03:24 WBC 9.2 RBC 5.47 Hgb 16.0 Hct 47.7 MCV 87.2 MCH 29.3 MCHC 33.5 RDW Std Deviation 39.8 RDW Coeff of Vanessa 12.5 Plt Count 280 MPV 11.3 Immature Gran % (Auto) 0.200 Neut % (Auto) 43.0 L Lymph % (Auto) 42.0 H [place] % (Auto) 10.0 Eos % (Auto) 4.0 Baso % (Auto) 0.8 Absolute Neuts (auto) 4.0 Absolute Lymphs (auto) 3.86 Nucleated RBC % 0 Sodium 139 Potassium 3.7 Chloride 103 Carbon Dioxide 22.1 Anion Gap 13 BUN 27 H Creatinine 1.31 H Estim Creat Clear Calc 70.24 Est GFR (MDRD) Non-Af 67 BUN/Creatinine Ratio 20.4 H Glucose 112 H Calcium 9.4 NT pro BNP II < 36 Urine Color Yellow Urine Clarity Clear Urine pH 6.5 Ur Specific [place] 1.015 Urine Protein 30 H Urine Glucose (UA) Normal Urine Ketones 15 H Urine Occult Blood 250 H Urine Nitrite Negative Urine Bilirubin 1 H Urine Urobilinogen 4 H Ur Leukocyte Esterase 100 H Urine RBC 50-100 SEEN Urine WBC 25-50 SEEN Ur Squamous Epith Cells 0-5 SEEN Calcium Oxalate Crystal 1+ Urine Bacteria 2+ Urine Mucus 4+ Radiography Diagnostic Testing: Clinical Impression(s) from Imaging Studies Abdomen/Pelvis CT 05/14/25 22:34 IMPRESSION: Ureteral calculus at the right ureterovesical junction, with mild hydroureteronephrosis. Reading Location: [facility] Discharge Plan Triage Chief Complaint: Abd Pain ED Provider: Willie Hansen Dx/Rx/DC Orders Clinical Impression: Ureteral colic, Ureterolithiasis Instructions: ED Kidney Stone with Pain Prescriptions: New oxycodone-acetaminophen 5-325 mg tablet 1 tab PO Q6H PRN PRN (Reason: Pain) 3 Days Qty: 12 0RF tamsulosin 0.4 mg capsule 0.4 mg PO DAILY Qty: 7 0RF Primary Care Provider: Care Physician,No Primary Referrals: Solomon Burton MD [Med Staff - Active Staff] - 1 Week if not improving Print Language: Azeri Disposition Disposition: Home, Self Care What to do if you have Problems For any increased pain, shortness of breath, bleeding, nausea or vomiting, chestpain, or any unexpected problems, contact your Primary Care Provider. Call [facility] ([phone]) or report to the closest Emergency Room. Call 911 if necessary. 05/15/25 0420 <Electronically signed by Willie Hansen MD> Cosigner Signature (if applicable): CC: No Primary Care Physician ~ Signed [facility] Work Phone: [phone] [phone] History of Present illness Narrative* Herminia Fountain LPN - 11/25/2024 6:39 PM EST Patient to medication cart this evening requesting Tylenol for back pain. Medication pended to provider center junction for approval. * Tiffanie Islas CDCA, LSW - 11/18/2024 9:49 AM EST ExAM Follow-up Appointment Checo Osborne is a 49 year old male. Client was seen today as a follow up for discovery. Updates since last visit on 11/11/24 by this telegraphic typewriter installer. Client reports he's very anxious being here and his daughter is in Foster Care. Client was informedhe has lost his bed at [address] [place] [address] and is worried he will not be able to care for his child. Client is asking for a sober living (housing for he and his daughter) in [facility]. Client still believes he will spend 30 days here at the [facility], after his hearing on 11/23/24 with Gabriel Ferrari. Client is still asking for Edward to be at his hearing. No further follow up is needed at this time. Plan/Recommendations: -Speak with Edpipe. ANGY Wasserman LSW RIS * Tiffanie Islas CDCA, LSW - 11/11/2024 9:37 AM EST ExAM Follow-up Appointment Checo Osborne is a 49 year old male. Client was seen today to discuss case and treatment plan. Updates since last visit on 11/05/[address] Lew. Client reports he's very anxious being here and his daughter is in Foster Care. Client [facility] being in [facility] with is daughter at the time of arrest. Client plans to finish his time here, get his daughter out of foster case and go back to the treatment center. Client says, they are holding his room. Client spoke with his bakery manager 11/10/24. Client believes he will spend 30 days here([facility]) after his hearing on 11/23/24 with Gabriel Ferrari. No further follow up is needed at this time. ANGY Wasserman LSW * Zack Petersen - 11/04/2024 11:31 PM EST Patient/Inmate Health Assessment Checo Osborne, 49 year old male, is admitted to [facility]. This is the 1st admission within the last 12 months. Patient/inmate is being seen today for 14 Day Health Assessment. Additional clinical concerns today: Patient A&O x3 with a steady gait. VS stable within normal limits. Wristband on ppd administered to right forearm. Patient denies S/I & H/I at this time. Patient denies auditory or visual hallucinations and answers questions appropriately. Patient denies any pain at this time. Patient states he currently is living in a sober living facility and has an up coming appointment with MAT for medication. Addiction medicine referral made for evaluation. All receiving screen information reviewed including communicable diseases, chronic diseases and mental health evaluation. History Patient Active Problem List: Depression [F32.A] COVID [U07.1] Opioid abuse [F11.10] Alcohol abuse [F10.10] Cocaine abuse [F14.10] Methamphetamine use disorder, severe, dependence (HCC) [F15.20] No past medical history on file. No past surgical history on file. Immunization History Administered Date(s) Administered Moderna Monovalent (12+ yrs) COVID-19 vaccine, mRNA, spike protein, LNP, PF, 100 mcg/0.5 mL (XFC=804) 10/11/2021 TST-PPD, intradermal (PPD) (CVX=96) 10/19/2019, 01/12/2020, 07/26/2020, 11/12/2020, 06/02/2021, 12/26/2022, 11/04/2024 Health Maintenance Topic Date Due Pneumococcal Vaccine(s) (1 of 2 - PCV) Never done Tdap Booster Never done Hepatitis B (HBV) Vaccine (1 of 3 - 19+ 3-dose series) Never done Cholesterol Never done CRC Screening Never done Influenza Vaccine (1) Never done COVID-19 Vaccine (2 - 2023- season) 2024 Hepatitis A (HAV) Vaccine (optional start 19+ years) 1994 Shingles (RZV) Vaccine (1 of 2) 2025 Hepatitis C Antibody Completed HIV Test Completed Physical findings On 12/10/2023 the vital signs were as follows: temperature 36.7, pulse 83, respirations 16, blood pressure 115/79, weight 151 lbs 0 (68.5 kg), height 5' 10 (177.8 cm). BP 121/83 Pulse 65 Temp 98.3 F (36.8 C) Resp 16 Wt 159 lb 6.4 oz (72.3 kg) SpO2 98% BMI22.87 kg/m Physical Exam 11/04/24 2300 Pain C/O Pain? No Dental Dental issues? No Respiratory Respiratory WNL Cardiovascular Cardiovascular WNL Neurological / Neuromuscular Neurological / Neuromuscular WNL Gastrointestinal Gastrointestinal WNL Genitourinary Genitourinary WNL Integumentary Integumentary WNL Suicide Screen Assessment Wished you were ? No Thoughts of killing/harming yourself? No Fall Risk Assessment (Adult) Age 0 Fall History (past 6 months) 0 Incontinence, Bowel & Bladder 0 Urgency / Frequency 0 Medications 0 Patient Care Equipment 0 Mobility (Assistance) 0 Mobility (Gait) 0 Mobility (Sensory Deficit) 0 Cognition (Awareness) 0 Cognition (Impulsiveness) 0 Cognition (Limitations) 0 Fall Risk Score 0 Fall Risk Level (Adult) Low Risk Fall Interventions (Adult) Low Risk Interventions (Adult) Basic safety interventions initiated 14 Day Health Assessment Assesment completed? Y Date completed? 11/04/24 Focused Assessment? Focused Assessment? No 09/10/2023 09/10/2023 09/09/2023 09/06/2023 COWS Screening Resting Pulse Rate 81 - 100 80 or below 81 - 100 81 - 100 Sweating Subjective report of chills or flushing Subjective report of chills or flushing Subjectivereport of chills or flushing Flushed or observable moistness on face Restlessness Reports difficulty sitting still, but is able to do so Able to sit still Able to sit still Frequent shifting or extraneous movements of arms/legs Pupil Size Pinned or normal size for room light Pinned or normal size for room light Pinned or normal size for room light Pinned or normal size for room light Bone/Joint Aches Not present Not present Mild diffuse discomfort Patient reports severe diffuse aching of joints/muscles Runny Nose/Tearing Not present Not present Not present Nasal stuffiness or unusually moist eyes GI Upset Stomach cramps Stomach cramps Stomach cramps Vomiting or diarrhea Tremors No tremor No tremor No tremor Slight tremor observable Yawning No yawning No yawning No yawning Yawning once or twice during assessment Anxiety or Irritability Patient reports increasing irritability or anxiousness Patient reports increasing irritability or anxiousness Patient reports increasing irritability or anxiousness Patient reports increasing irritability or anxiousness Gooseflesh Skin Skin is smooth Skin is smooth Skin is smooth Skin is smooth Clinical Opiate Withdrawal Score 5 3 5 16 No results found for this or any previous visit (from the past 67890 hours). BMP (last 3 years, up to 8 values) No lab values to display. No results found for: HBA1C No results found for: HIVLOAD ASSESSMENT/PLAN Screening for tuberculosis -ppd given Last notes from admission, hospital or emergency department discharge summaries, or primary care visits were reviewed, if available at the time of the health assessment. CareEverywhere immunizations,allergies, problem list were reviewed and reconciled with internal records. Receiving screen was reviewed and any interim acute care provided during admission. Clinical concerns: Documentation of health assessment completed for licensed independent provider review Diagnostic and therapeutic orders pended for licensed independent provider review and completion Oral hygiene and preventative oral education provided Patient/inmate questions answered, bishop education provided: hydration Admission problem list updated to reflect review and clinical findings Zack Petersen documented in this [id number] History of Present illness Narrative* Jessica Goode APRN-CNP - 12/26/2023 1:57 PM EST Pt went to court this morning and is being released today so he stated he did not need to be seen. Denied s/h ideation. MONALISA Cole * Carly Rodas APRN-CNP - 12/20/2023 10:43 AM EST 14 doses of ibuprofen in 30 days will be given for pain prn. No refills will be given until after the 30 days. * Jessica Ortiz RN - 12/10/2023 6:03 PM EST Patient/Inmate Health Assessment Checo Osborne, 48 year old male, is admitted to [facility]. This is the 3rd admission within the last 12 months. Patient/inmate is being seen today for 14 Day Health Assessment. Additional clinical concerns today: AOX4, calm and cooperative. Denies any pain or discomfort. Denies any SI/HI/AVH. Inmate states he has history of Depression and Anxiety and [facility] Inmate states he takes Doxepin 50 mg at bedtime for his depression. Psych consult pended. He denies any alcohol or drug use. Inmate had negative PPD on 12/28/2022. Vitals obtained, WNL. All receiving screen information reviewed including communicable diseases, chronic diseases and mental health evaluation. History Patient Active Problem List: Depression [F32.A] COVID [U07.1] Opioid abuse (HCC) [F11.10] Alcohol abuse [F10.10] Cocaine abuse (HCC) [F14.10] No past medical history on file. No past surgical history on file. Immunization History Administered Date(s) Administered Moderna Monovalent (12+ yrs) COVID-19 vaccine, mRNA, spike protein, LNP, PF, 100 mcg/0.5 mL (TPO=573) 10/11/2021 TST-PPD, intradermal (PPD) (CVX=96) 10/19/2019, 01/12/2020, 07/26/2020, 11/12/2020, 06/02/2021, 12/26/2022 Health Maintenance Topic Date Due Hepatitis B (HBV) Vaccine (1 of 3 - 3-dose series) Never done Pneumococcal Vaccine(s) (1 of 2 - PCV) Never done Tdap Booster Never done Cholesterol Never done CRC Screening Never done Influenza Vaccine (1) Never done COVID-19 Vaccine (2 - 2022- season) 2023 Shingles (RZV) Vaccine (1 of 2) 2025 Hepatitis C Antibody Completed HIV Test Completed Physical findings On 09/06/2023 the vital signs were as follows: temperature 36.6, pulse 89, respirations 18, blood pressure 114/80, weight 151 lbs 9.6 oz (68.8 kg), height 5' 10 (177.8 cm). BP 115/79 (BP Location: left arm, BP position: sitting, Cuff Size: adult) Pulse 83 Temp 98 F (36.7 C) (Oral) Resp 16 Ht 5' 10 (1.778 m) Wt 151 lb (68.5 kg) SpO2 96% BMI 21.67 kg/m Physical Exam COWS Screening 09/10/2023 09/10/2023 09/09/2023 09/06/2023 Resting Pulse Rate 81 - 100 80 or below 81 - 100 81 - 100 Sweating Subjective report of chills or flushing Subjective report of chills or flushing Subjectivereport of chills or flushing Flushed or observable moistness on face Restlessness Reports difficulty sitting still, but is able to do so Able to sit still Able to sit still Frequent shifting or extraneous movements of arms/legs Pupil Size Pinned or normal size for room light Pinned or normal size for room light Pinned or normal size for room light Pinned or normal size for room light Bone/Joint Aches Not present Not present Mild diffuse discomfort Patient reports severe diffuse aching of joints/muscles Runny Nose/Tearing Not present Not present Not present Nasal stuffiness or unusually moist eyes GI Upset Stomach cramps Stomach cramps Stomach cramps Vomiting or diarrhea Tremors No tremor No tremor No tremor Slight tremor observable Yawning No yawning No yawning No yawning Yawning once or twice during assessment Anxiety or Irritability Patient reports increasing irritability or anxiousness Patient reports increasing irritability or anxiousness Patient reports increasing irritability or anxiousness Patient reports increasing irritability or anxiousness Gooseflesh Skin Skin is smooth Skin is smooth Skin is smooth Skin is smooth Clinical Opiate Withdrawal Score 5 3 5 16 No results found for this or any previous visit (from the past 81196 hour(s)). Basic Metabolic Panel None No results found for: HBA1C No results found for: HIVLOAD ASSESSMENT/PLAN Last notes from admission, hospital or emergency department discharge summaries, or primary care visits were reviewed, if available at the time of the health assessment. CareEverywhere immunizations,allergies, problem list were reviewed and reconciled with internal records. Receiving screen was reviewed and any interim acute care provided during admission. Clinical concerns: Documentation of health assessment completed for licensed independent provider review Diagnostic and therapeutic orders pended for licensed independent provider review and completion Oral hygiene and preventative oral education provided Patient/inmate questions answered, bishop education provided: Inmate educated on how to contact medical, dental, and psychiatric services. Admission problem list updated to reflect review and clinical findings Jessica Ortiz RN documented in this [id number] Reason for referral (narrative)* Provider Visit Specialty Diagnoses / Procedures Referred By Grant jesus Referred To Contact Dentistry Aleksandr Mullen MD [address] [place] [address] [address] [place] [address] [place] [address] Referral ID Status Reason Start Date Expiration Date Visits Re quested Visits Authorized [id number] History of Present illness Narrative* Mariam Dasilva MD - 09/30/2023 9:05 AM EDT Vitals: 09/30/23 0905 BP: Pulse: 89 Resp: Temp: 97.9 F (36.6 C) SpO2: 99% Denies COVID symptoms or medical concerns today. Reports that he feels well. COVID recovered; reclassed to GP. Completed 12 day quarantine following positive COVID test 09/18/23 Clinically stable for GP. * Mariam Dasilva MD - 09/24/2023 9:53 AM EDT [facility] COVID DAILY ROUNDS 09/24/2023 Pt seen and evaluated during daily provider covid rounds. Day of quarantine: 6 Date of + COVID test: 09/18 Day of symptom onset: x 1 week but no one listened to me and I am getting better 09/23 asx S: Fevers none Chills none Cough none Shortness of breath none Nausea/vomiting none Diarrhea none Appetite okay Headache mild with nasal congestion Body aches none Sense of taste present Sense of smell present O: Vitals: 09/24/23 0952 BP: Pulse: 78 Resp: Temp: 96.7 F (35.9 C) SpO2: 98% GEN: NAD, well appearing HENT: NCAT, no impairment in conversation, wearing surgical mask PULM: even, unlabored NEURO: alert, nonfocal MSK: steady gait Patient Active Problem List: Depression [F32.A] COVID [U07.1] Opioid abuse (HCC) [F11.10] Alcohol abuse [F10.10] Cocaine abuse (HCC) [F14.10] A/P: Clinically stable for COVID unit. Continue to monitor closely. Encouraged PO hydration. Assigning Recovery status: 1) Date of STONE DECORATOR swab collection + 10 days, if asymptomatic through entire course 2) If symptomatic prior to swab, maintain use of #1 as timing 3) If develops symptoms post positive swab, restart the clock on day of symptoms + 10 days. Date of Recovery eval: Review vitals last 72 hours, overall symptoms improving and afebrile. Confirm no antipyretics givenin last 48 hours. Recovery/Re-class anticipated date: 09/28/2023 Mariam Dasilva MD 09/24/2023 9:53 AM * Mariam Dasilva MD - 09/23/2023 10:29 AM EDT [facility] COVID DAILY ROUNDS 09/23/2023 Pt seen and evaluated during daily provider covid rounds. Day of quarantine: 5 Date of + COVID test: 09/18 Day of symptom onset: x 1 week but no one listened to me and I am getting better 09/23 asx S: Fevers none Chills none Cough none Shortness of breath none Nausea/vomiting none Diarrhea none Appetite okay Headache mild with nasal congestion Body aches none Sense of taste present Sense of smell present O: Vitals: 09/23/23 1029 BP: Pulse: 73 Resp: Temp: 97.1 F (36.2 C) SpO2: 99% GEN: NAD, well appearing HENT: NCAT, no impairment in conversation, wearing surgical mask PULM: even, unlabored NEURO: alert, nonfocal MSK: steady gait Patient Active Problem List: Depression [F32.A] COVID [U07.1] Opioid abuse (HCC) [F11.10] Alcohol abuse [F10.10] Cocaine abuse (HCC) [F14.10] A/P: Clinically stable for COVID unit. Continue to monitor closely. Encouraged PO hydration. Assigning Recovery status: 1) Date of STONE DECORATOR swab collection + 10 days, if asymptomatic through entire course 2) If symptomatic prior to swab, maintain use of #1 as timing 3) If develops symptoms post positive swab, restart the clock on day of symptoms + 10 days. Date of Recovery eval: Review vitals last 72 hours, overall symptoms improving and afebrile. Confirm no antipyretics givenin last 48 hours. Recovery/Re-class anticipated date: 09/28/2023 Mariam Dasilva MD 09/23/2023 10:29 AM * Carly Rodas, HIDE CURER-AMMONIA REFRIGERATION WORKER - 09/20/2023 2:08 PM EDT [facility] COVID DAILY ROUNDS 09/20/2023 Pt seen and evaluated during daily provider covid rounds. Day of quarantine: 2 Date of + COVID test: 09/18 Day of symptom onset: x 1 week but no one listened to me and I am getting better 09/20 feels better today S: Fevers none Chills none Cough none Shortness of breath none Nausea/vomiting none Diarrhea none Appetite okay Headache mild with nasal congestion Body aches none Sense of taste present Sense of smell present O: Vitals: 09/20/23 1408 BP: Pulse: 76 Resp: Temp: 98.1 F (36.7 C) SpO2: 98% GEN: NAD, well appearing HENT: NCAT, no impairment in conversation, wearing surgical mask PULM: even, unlabored NEURO: alert, nonfocal MSK: steady gait Patient Active Problem List: Depression [F32.A] COVID [U07.1] Opioid abuse (HCC) [F11.10] Alcohol abuse [F10.10] Cocaine abuse (HCC) [F14.10] A/P: Clinically stable for COVID unit. Continue to monitor closely. Encouraged PO hydration. Assigning Recovery status: 1) Date of STONE DECORATOR swab collection + 10 days, if asymptomatic through entire course 2) If symptomatic prior to swab, maintain use of #1 as timing 3) If develops symptoms post positive swab, restart the clock on day of symptoms + 10 days. Date of Recovery eval: Review vitals last 72 hours, overall symptoms improving and afebrile. Confirm no antipyretics givenin last 48 hours. Recovery/Re-class anticipated date: 09/28/2023 MONALISA Gu 09/20/2023 2:08 PM * Carly Rodas APRN-CNP - 09/19/2023 3:01 PM EDT [facility] COVID DAILY ROUNDS 09/19/2023 Pt seen and evaluated during daily provider covid rounds. Day of quarantine: 1 Date of + COVID test: 09/18 Day of symptom onset: x 1 week but no one listened to me and I am getting better S: Fevers none Chills none Cough none Shortness of breath none Nausea/vomiting none Diarrhea none Appetite okay Headache mild with nasal congestion Body aches none Sense of taste present Sense of smell present O: Vitals: 09/19/23 1501 BP: Pulse: 94 Resp: Temp: 96.3 F (35.7 C) SpO2: 97% GEN: NAD, well appearing HENT: NCAT, no impairment in conversation, wearing surgical mask PULM: even, unlabored NEURO: alert, nonfocal MSK: steady gait Patient Active Problem List: Depression [F32.A] COVID [U07.1] Opioid abuse (HCC) [F11.10] Alcohol abuse [F10.10] Cocaine abuse (HCC) [F14.10] A/P: Clinically stable for COVID unit. Continue to monitor closely. Encouraged PO hydration. Assigning Recovery status: 1) Date of STONE DECORATOR swab collection + 10 days, if asymptomatic through entire course 2) If symptomatic prior to swab, maintain use of #1 as timing 3) If develops symptoms post positive swab, restart the clock on day of symptoms + 10 days. Date of Recovery eval: Review vitals last 72 hours, overall symptoms improving and afebrile. Confirm no antipyretics givenin last 48 hours. Recovery/Re-class anticipated date: 09/28/2023 MONALISA Gu 09/19/2023 3:01 PM * Mir Dela Cruz - 09/17/2023 12:25 PM EDT COMPLETED Completed Government Performance and Results Act (GPRA) baseline survey. 25 minutes Pt., endorsed opioids and methamphetamines as drugs of choice. Pt., stated he is interested in somehelp with linkages to treatment. Pt., stated that he has court next week but was not sure of the outcome. Pt., stated that he was working with PO, hopefully to be placed in residential treatment. [facility] * Alison Kim RN - 09/13/2023 11:14 PM EDT This patient was brought to dispensary with c/o being sob, tightness in his chest he says for a fewdays now. Pox 100, 114/80, 65, 18 97.1. ECG: NSR. After I told him everything was normal he startedacting like he couldn't breathe. Lungs clear to auscultation and covid screening ordered and completed. Bonnie notified. * Tiffanie Islas CDCA, LSW - 09/12/2023 10:58 AM EDT Client was seen today to discuss MAT programming. Client reported snorting an undisclosed amount ofheroin/fentanyl/methamphetamine daily. Client complained of withdrawal symptoms and would like his suboxone upped. Client is in intermediate for a parole violation with [employer] Gabriel Ferrari docket has not been updated. Client does not think he's going back to care home and would nicole IP at [facility] in [place]. Exam will follow case and provide linkage when necessary. MAT provider to follow up to discuss MAT induction. * Melony Lew MD - 09/10/2023 12:54 PM EDT Patient seen by Addiction Provider on CIWA/COWS rounds HPI: Pt reports he has been using methamphetamine, percocet and heroin for the last year after starting to use with his 5 years ago and relapsing again with her recently. Says he want to in patient treatment a few months ago, reconnected with now ex- and resumed use. He was using each daily. He reports a history of ADHD diagnosis as a kid, says he was told he had schizophrenia 8 years ago due to hearing voices but had no other symptoms. Was put on risperidone while in care home for this. Says AH at the time were like my bad side telling me to do things I shouldn't. No recurrence of these. Denies any mood or psychotic symptoms now, no SI, HI. CIWA scores: na COWS scores: 16 - 5 - 3 - 5 UDS: + amp, lei Substance Use History (type, frequency, amount, route of use, onset of use, last use): Opioids: daily use of heroin/fentanyl by snorting, denies IV use, started 4-5 years ago Alcohol: started age 18, none in many years Benzodiazepines: denies Cocaine: last used 5 years ago PCP: denies Methamphetamine/ecstasy: daily use for past 2 years, smokes Cannabis: started age 18, none in many years Other: Hx of Delirium Tremens: denies Hx of Seizure: denies Hx of other complicated withdrawal: denies Past Substance Use treatment history: Hx of treatment attempts: yes Types of treatments (inpatient, IOP, OP): [facility] Hx of Medications for JERRICA (and name): none Longest period of sobriety and how attained: 30 days while at [facility] Past Psych History: Dx: ADHD in childhood, schizophrenia for Inpatient: none Outpatient: none Suicide attempts/SIB: none Meds: celexa, risperidone, last time on either was over 5 years ago Mental Status Exam: Appearance & attitude: cooperative, disheveled. Mood: euthymic. Affect:Constricted. Speech: appropriate & spontaneous, normal rate & flow. Thought form: organized. Thought content & perception: no derailment or disorganized thoughts of psychotic nature, denies auditory hallucinations, denies visual hallucinations, denies suicidal thoughts or intention, denies homicidal thoughts orintention. Orientation: Oriented to time, person & place. Memory & attention: sustained. Judgment & insight: fair Diagnoses: Opioid, stimulant use disorders Plan: - Subutex taper, withdrawal PRNs - no psych meds needed at this time RTC 4-6 weeks Referral to: ExAM Melony Lew MD * Aby Malagon RN - 09/10/2023 7:48 AM EDT Nurse to pod for withdrawal evaluation. Please review flowsheet. Monitoring continues. * Kaylen Negrete RN - 09/09/2023 8:14 AM EDT Nurse to pod for substance abuse rounds. Patient reports signs and symptoms of withdraw. Please review flowsheet. Monitoring continues. * Meredith Hedrick - 09/07/2023 4:59 PM EDT Blood pressure checks per order * Melina Agrawal, FER - 09/06/2023 3:55 PM EDT Inmate not to pod yet from intake for afternoon COWS. Was seen by intake nurse not long ago and meds have been ordered. * Gretchen Terrell RN - 09/06/2023 1:49 PM EDT Patient/Inmate Health Assessment Checo Osborne, 48 year old male, is admitted to [facility]. This is his multipleadmission within the last 12 months. Patient/inmate is being seen today for 14 Day Health Assessment. Additional clinical concerns today: Intake completed. Patient ambulates unassisted w/ steady gait. Patient disoriented to date. NAD observed. Respirations easy, non-labored. Speech clear. Patient follows commands appropriately. Patient denies any significant past Medical hx. BP checks ordered daily x 5 days. Past MH hx depression. Reports hx schizophrenia. Hx non-commanding AH; denies any at this time. Reports remote hx SI. Patient denies any current SI/HI. referral placed. Previously prescribed Cogentin. Celexa. Doxepin. 2013. Patient denies any alcohol use. Patient reports using meth, Percocet, and snorting heroin daily w/ 1-2 gm heroin ise daily. Last use yesterday. DAST 8. Current COWS 16. COWS protocol pended for approval. Addiction notified. Urine tox collected. PPD negative 12/28/2022. Scab to top of head r/t patient hitting head accidentally at home yesterday while bending over. Patient instructed to report any s/s of infection; patient verbalized understanding. Patient educated on how to gain access to Medical, , and/or Dental. Patient has no questions and/or concerns at this time. Medications administered as ordered. All receiving screen information reviewed including communicable diseases, chronic diseases and mental health evaluation. History Patient Active Problem List: Depression [F32.A] COVID [U07.1] Opioid abuse (HCC) [F11.10] Alcohol abuse [F10.10] Cocaine abuse (HCC) [F14.10] No past medical history on file. No past surgical history on file. Immunization History Administered Date(s) Administered Moderna Monovalent (12+ yrs) COVID-19 vaccine, mRNA, spike protein, LNP, PF, 100 mcg/0.5 mL (NMB=870) 10/11/2021 TST-PPD, intradermal (PPD) (CVX=96) 10/19/2019, 01/12/2020, 07/26/2020, 11/12/2020, 06/02/2021, 12/26/2022 Health Maintenance Topic Date Due Pneumococcal Vaccine(s) (1 - PCV) Never done Tdap Booster Never done Cholesterol Never done CRC Screening Never done COVID-19 Vaccine (2 - 2022-24 season) 2023 Influenza Vaccine (1) 08/02/2023 Shingles (RZV) Vaccine (1 of 2) 2025 Hepatitis C Antibody Completed HIV Test Completed Physical findings On 12/25/2022 the vital signs were as follows: temperature 36.3, pulse 84, respirations 18, blood pressure 144/96, weight 156 lbs 0 (70.8 kg), height 5' 10 (177.8 cm). BP 147/90 (BP Location: right arm, BP position: sitting, Cuff Size: adult) Pulse 86 Temp 98.5 F(36.9 C) (Temporal) Resp 16 Ht 5' 10 (1.778 m) Wt 151 lb 9.6 oz (68.8 kg) SpO2 96% BMI 21.75 kg/m Physical Exam 09/06/23 1340 Pain C/O Pain? Yes Acceptable Level of Pain? 0 PAIN: Pain Location Generalized Pain Location Laterality N/A What provokes the pain? (P) Nothing noted What relieves/palliates the pain? (P) Medication;Repositioning Pain Description (Q) Aching Radiates to (R) Other (comment) (N/A) Timing of pain (T) Last night Pain Interventions Medication (See MAR);Reposition;Rest Pain Scale Used? (S) Numeric Numeric Pain Scale Pain Score 10 Dental Dental issues? No Respiratory Respiratory WNL Cardiovascular Cardiovascular WNL Neurological / Neuromuscular Neurological / Neuromuscular X Orientation Disoriented to date Gastrointestinal Gastrointestinal X GI Symptoms Vomiting;Diarrhea Genitourinary Genitourinary WNL Integumentary Integumentary WNL Suicide Screen Assessment Wished you were ? No Thoughts of killing/harming yourself? No Have you thought about how you might kill yourself? No Have you had intention of acting on these thoughts? No Have you started to work out the details of how to kill yourself? No Haver you ever done, started, or prepared to do anything to end your life? No Mental Health consult order placed? Yes Fall Risk Assessment (Adult) Age 0 Fall History (past 6 months) 0 Incontinence, Bowel & Bladder 0 Urgency / Frequency 0 Medications 0 Patient Care Equipment 0 Mobility (Assistance) 0 Mobility (Gait) 0 Mobility (Sensory Deficit) 0 Cognition (Awareness) 0 Cognition (Impulsiveness) 0 Cognition (Limitations) 0 Fall Risk Score 0 Fall Risk Level (Adult) Low Risk Fall Interventions (Adult) Low Risk Interventions (Adult) Basic safety interventions initiated 14 Day Health Assessment Assesment completed? Y Date completed? 09/06/23 Focused Assessment? Focused Assessment? No COWS Screening 09/06/2023 12/30/2022 12/30/2022 12/29/2022 Resting Pulse Rate 81 - 100 80 or below 101 - 120 101 - 120 Sweating Flushed or observable moistness on face No report of chills or flushing No report of chills or flushing No report of chills or flushing Restlessness Frequent shifting or extraneous movements of arms/legs Able to sit still Able to sit still Able to sit still Pupil Size Pinned or normal size for room light Pinned or normal size for room light Pinned or normal size for room light Pinned or normal size for room light Bone/Joint Aches Patient reports severe diffuse aching of joints/muscles Not present Not present Not present Runny Nose/Tearing Nasal stuffiness or unusually moist eyes Not present Not present Not present GI Upset Vomiting or diarrhea No GI upset No GI upset No GI upset Tremors Slight tremor observable No tremor No tremor No tremor Yawning Yawning once or twice during assessment No yawning No yawning No yawning Anxiety or Irritability Patient reports increasing irritability or anxiousness None None None Gooseflesh Skin Skin is smooth Skin is smooth Skin is smooth Skin is smooth Clinical Opiate Withdrawal Score 16 0 2 2 No results found for this or any previous visit (from the past 65866 hour(s)). Basic Metabolic Panel None No results found for: HBA1C No results found for: HIVLOAD ASSESSMENT/PLAN 1. Inmate in correctional facility (primary diagnosis) 2. Cocaine abuse (HCC) 3. Alcohol abuse 4. Opioid abuse (HCC) Last notes from admission, hospital or emergency department discharge summaries, or primary care visits were reviewed, if available at the time of the health assessment. CareEverywhere immunizations,allergies, problem list were reviewed and reconciled with internal records. Receiving screen was reviewed and any interim acute care provided during admission. Clinical concerns: Documentation of health assessment completed for licensed independent provider review Diagnostic and therapeutic orders pended for licensed independent provider review and completion Oral hygiene and preventative oral education provided Patient/inmate questions answered, bishop education provided. Admission problem list updated to reflect review and clinical findings Gretchen Terrell RN documented in this [id number] History of Present illness Narrative* Jessica Goode APRN-CNP - 01/17/2023 11:01 AM EST Initial psychiatric appointment S: Pt stated he is good except for not sleeping well. He stated Doxepin knocks him out and he sleeps for 6 hours then is up. Stated his appetite is not good. Energy is fair. Denied s/h ideation. Denied a/v jimenez. He denied substance use other than meth but per a note from 2014 he has a history of cocaine and alcohol use and treatment for these substances at [facility]. He stated the only substance he has used was methamphetamine with his gf. O: Thoughts were organized and logical. Speech was clear and coherent. A: Poly substance use, meth, cocaine, opioid and alcohol. Continue the following medications: Cogentin 1 mg BID for RLS Celexa 20 mg po daily Increase Doxepin 50 mg po q HS for sleep Rtc 12 wks. MONALISA Cole * Carly Rodas APRN-CNP - 01/14/2023 1:23 PM EST [facility] COVID DAILY ROUNDS 01/14/2023 Pt seen and evaluated during daily provider covid rounds. Day of quarantine: 11 Date of + COVID test: 01/03/2023 Day of symptom onset: asx S: Fevers none Chills none Cough none Shortness of breath none Nausea/vomiting none Diarrhea none Appetite okay Headache none Body aches none Sense of taste present Sense of smell present O: Vitals: 01/14/23 1323 BP: Pulse: 84 Resp: Temp: 97.4 F (36.3 C) SpO2: 99% GEN: NAD, well appearing HENT: NCAT, no impairment in conversation, wearing surgical mask PULM: even, unlabored NEURO: alert, nonfocal MSK: steady gait Patient Active Problem List: Depression [F32.A] COVID [U07.1] A/P: Covid recovered Reclass submitted for GP Assigning Recovery status: 1) Date of STONE DECORATOR swab collection + 10 days, if asymptomatic through entire course 2) If symptomatic prior to swab, maintain use of #1 as timing 3) If develops symptoms post positive swab, restart the clock on day of symptoms + 10 days. Date of Recovery eval: Review vitals last 72 hours, overall symptoms improving and afebrile. Confirm no antipyretics givenin last 48 hours. Recovery/Re-class anticipated date: 01/13/23 MONALISA Gu 01/14/2023 1:23 PM Mariam Garcia MD - 01/07/2023 10:56 AM EST [facility] COVID DAILY ROUNDS 01/07/2023 Pt seen and evaluated during daily provider covid rounds. Day of quarantine: 4 Date of + COVID test: 01/03/2023 Day of symptom onset: asx S: Fevers none Chills none Cough none Shortness of breath none Nausea/vomiting none Diarrhea none Appetite okay Headache none Body aches none Sense of taste present Sense of smell present O: Vitals: 01/07/23 1055 BP: Pulse: 81 Resp: Temp: 96.6 F (35.9 C) SpO2: 98% GEN: NAD, well appearing HENT: NCAT, no impairment in conversation, wearing surgical mask PULM: even, unlabored NEURO: alert, nonfocal MSK: steady gait Patient Active Problem List: Depression [F32.A] COVID [U07.1] A/P: Educated on COVID protocol while incarcerated. All questions answered. Clinically stable for COVID unit. Continue to monitor closely. Encouraged PO hydration. Assigning Recovery status: 1) Date of STONE DECORATOR swab collection + 10 days, if asymptomatic through entire course 2) If symptomatic prior to swab, maintain use of #1 as timing 3) If develops symptoms post positive swab, restart the clock on day of symptoms + 10 days. Date of Recovery eval: Review vitals last 72 hours, overall symptoms improving and afebrile. Confirm no antipyretics givenin last 48 hours. Recovery/Re-class anticipated date: 01/13/23 Mariam Dasilva MD 01/07/2023 10:56 AM * Mariam Dasilva MD - 01/04/2023 3:08 PM EST COVID + 01/03/23 Reclassed to COVID unit. Has not been moved, not seen today. * Chandrika Gonzalez LPN - 12/29/2022 2:23 PM EST Nurse to pod, pt states no signs nor symptoms of withdrawal. None observed, monitoring continues. * Chandrika Gonzalez LPN - 12/29/2022 7:33 AM EST Nurse to pod, pt states no signs nor symptoms of withdrawal. None observed, monitoring continues. * Ta Forrest - 12/28/2022 11:50 AM EST Patient to med cart. Patient refused COWS assessment. * Chandrika Gonzalez LPN - 12/27/2022 2:46 PM EST Nurse to pod, pt states no signs nor symptoms of withdrawal. None observed, monitoring continues. * Tiffanie Islas RN - 12/27/2022 12:00 PM EST Client was seen today to discuss MAT programming. Client reported he does not have an AOD addiction/declined services. * Chandrika Gonzalez LPN - 12/27/2022 7:14 AM EST Nurse to pod, pt voiced signs and symptoms of withdrawal. Please review flowsheet. Monitoring continues. * Chandrika Gonzalez LPN - 12/26/2022 2:32 PM EST Nurse to pod, pt voiced signs and symptoms of withdrawal. Please review flowsheet. Monitoring continues. * Kylah Haines RN - 12/26/2022 5:25 AM EST Images from the original note were not included. Patient/Inmate Health Assessment Checo Osborne, 47 year old male, is admitted to [facility]. This is the first admission within the last 12 months. Patient/inmate is being seen today for 14 Day Health Assessment. Additional clinical concerns today: Patient calm and cooperative. A/O x 3 and ABC's intact. Skin warm and dry. Patient denies SI/HI. History of depression - last taken / last admission - Celexa/Mosheentin and Sinequan - consult listed for medication evaluation. No complaints or signs of SOB, CP orABD pains. No N/V, numbness, tingling or weakness. No history of seizures, communicable diseases orphysical injuries. Patient spoke of using Meth- However patient has runny nose - inquire if patientis using other illicit drug patient replied he is not taking a drug test. Pend COWS protocol - nursing judgement. PPD left forearm. Patient signed consent, green ban placed. Patient medically clearedfrom intake process. All receiving screen information reviewed including communicable diseases, chronic diseases and mental health evaluation. History Patient Active Problem List: Depression [F32.A] No past medical history on file. No past surgical history on file. Immunization History Administered Date(s) Administered Moderna (primary 12+ yrs) COVID-19 vaccine, mRNA, spike protein, LNP, PF, 100 mcg/0.5 mL (NRW=456) 10/11/2021 TST-PPD, intradermal (PPD) (CVX=96) 10/19/2019, 01/12/2020, 07/26/2020, 11/12/2020, 06/02/2021, 12/26/2022 Health Maintenance Topic Date Due Pneumococcal Vaccine(s) (1 - PCV) Never done Tdap Booster Never done Cholesterol Never done COVID-19 Vaccine (2 - Moderna series) 11/08/2021 Influenza Vaccine (1) Never done Shingles (RZV) Vaccine (1 of 2) 2025 Hepatitis C Antibody Completed HIV Test Completed Physical findings On 06/02/2021 the vital signs were as follows: temperature 36.9, pulse 87, respirations 16, blood pressure 121/84, weight 157 lbs 0 (71.2 kg), height 5' 10 (177.8 cm). BP 144/96 Pulse 81 Temp 97.7 F (36.5 C) (Temporal) Resp 18 Ht 5' 10 (1.778 m) Wt 156 lb (70.8 kg) SpO2 97% BMI 22.38 kg/m Physical Exam No flowsheet data found. No results found for this or any previous visit (from the past 34359 hour(s)). Basic Metabolic Panel Na K Cl CO2 Gap Glu BUN Cr Ca 05/09/20 1309 140 3.7 106 24 14 94 17 1.05 9.4 No results found for: HBA1C No results found for: HIVLOAD ASSESSMENT/PLAN Inmate in correctional facility -ppd 12/26/22 Last notes from admission, hospital or emergency department discharge summaries, or primary care visits were reviewed, if available at the time of the health assessment. CareEverywhere immunizations,allergies, problem list were reviewed and reconciled with internal records. Receiving screen was reviewed and any interim acute care provided during admission. Clinical concerns: Documentation of health assessment completed for licensed independent provider review Diagnostic and therapeutic orders pended for licensed independent provider review and completion Oral hygiene and preventative oral education provided Patient/inmate questions answered, bishop education provided: [place] Admission problem list updated to reflect review and clinical findings Kylah Haines RN documented in this [id number] Reason for referral (narrative)* Specialty Diagnoses / Procedures Referred By Grant jesus Referred To Contact Aleksandr Mullen MD [address] [place] [address] [place] [address] Referral ID Status Reason Start Date Expiration Date Visits Re quested [facility]its [facility]* Diagnosis Close exposure to COVID-19 virus Encounter for laboratory testing for severe acute respiratory syndrome coronavirus 2 (SARS-CoV-2) [facility]* Diagnosis Inmate in correctional facility- Primary Opioid dependence with withdrawal (HCC) Drug withdrawal Encounter for laboratory testing for severe acute respiratory syndrome coronavirus 2 (SARS-CoV-2) [facility]* Diagnosis Injury of quadriceps tendon- Primary documented in this encounter [facility] [employer] Phone: evaluation note* Diagnosis Inmate in correctional facility- Primary Cocaine abuse (HCC) Cocaine abuse, unspecified Alcohol abuse Alcohol abuse, unspecified Opioid abuse (HCC) Opioid abuse, unspecified Encounter for laboratory testing for severe acute respiratory syndrome coronavirus 2 (SARS-CoV-2) Suspected severe acute respiratory syndrome coronavirus 2 (SARS-CoV-2) infection [facility]* Diagnosis Pain, dental- Primary Unspecified disorder of the teeth and supporting structures [facility]* Diagnosis Depression, unspecified depression type- Primary [facility]* Diagnosis Screening for tuberculosis- Primary Screening examination for pulmonary tuberculosis Opioid abuse Opioid abuse, unspecified Cocaine abuse Cocaine abuse, unspecified Methamphetamine use disorder, severe, dependence (HCC) [facility]No assessment information [facility]WH[facility] Work Phone: Hospital Discharge instructions* Attachments The following attachments cannot be sent through Care Everywhere. * Quadriceps Strain (Azeri) [facility] Work Phone: reason for referral (narrative)No reason for referral information availableWHolzer Health System Work Phone: Summary Purpose Family History No Family History Records FoundNo Family History Records FoundNo Family History Records FoundNo Family History Records FoundNo Family History Records Found Advance Directives Advance Directive Response Recorded Date/ Time Do you have a Healthcare Power of Automatic Thread Winder? No May 14, 2025 9:36pm Reason for Referral Specialty Diagnoses / Procedures Referred By Grant jesus [place] [address] Phone: [phone] Referral ID Status Reason Start Date Expiration Date Visits Re quested Visits Authorized Question Answer When do you want the INMATE to be seen in the [facility]PART[facility]? Today Question Answer What is the Addiction Referral Type? MAT Addiction When do you want the INMATE to be seen in the [facility] DEPART[facility]? Today Specialty Diagnoses / Procedures Referred By Grant jesus [place] [address] Phone: [phone] [place] [address] Phone: [phone] Comments Medication evaluation History of depression Celexa/ Cogentin and sinequan Specialty Diagnoses / Procedures Referred By Grant jesus Referred To Contact Melony Lew MD [address] [place] [address] Comments OUD, interested in treatment on release Question Answer When do you want the INMATE to be seen in [facility] PATHOLOGY? Today Specialty Diagnoses / Procedures Referred By Grant jesus Referred [place] [address] Phone: [phone] [facility] Comments Depression. Reports hx schizophrenia. Non-commanding AH reported. Reports remote hx SI. Denies current SI/HI. Previously prescribed Cogentin, Celexa, Doxepin 2013. Question Answer What is the Addiction Referral Type? General Addiction When do you want the INMATE to be seen in the [facility] DE[facility]? Today Question Answer When do you want the INMATE to be seen in the [facility]? Tomorrow Comments Depression and Anxiety Chief Complaint and Reason for Visit Chief Complaint Admit Date ABD PAIN May 14, 2025 9:23 pm Additional Source Comments (unrecognized sect ion and content) No Status Records FoundNo Status Records FoundNo Status Records FoundNo Status Records FoundNo Status Records Found INFORMATION SOURCE (unrecogn ized section and content) DATE CREATED AUTHOR 05/21/2018 [facility] DATE CREATED AUTHOR AUTHOR'S ORGANIZ ATION 08/22/2019 [facility] DATE CREATED AUTHOR AUTHOR'S ORGANIZ ATION 08/01/2021 [facility] DATE CREATED AUTHOR AUTHOR'S ORGANIZ ATION 02/24/2024 [facility] DATE CREATED AUTHOR AUTHOR'S ORGANIZ ATION 12/11/2024 [facility] Reason for Visit (unrecogniz ed section and content) Reason Comments [facility] Intake Reason Comments Leg Pain Right leg Reason Comments [facility] Intake Reason Comments [facility] Intake Ordered Prescriptions (unrec ognized section and content) Prescription Sig Dispensed Refills Start Date End Da te ibuprofen (ADVIL;MOTRIN) 800 MG tablet Take 1 tablet by mouth 2 times daily as needed for Pain 60 tablet 0 04/29/2023 Scheduled Active and Recently Administ ered Medications (unrecognized section and content) Medication Order 04/27/2023 04/28/2023 04/29/2023 ibuprofen (ADVIL;MOTRIN) tablet 800 mg (COMPLETED) 800 mg, Oral, ONCE, 1 dose, On 04/29/23 at 1431, Do not crush or chew. 1454 (Given - Provid er: Jonathan Matos LPN) Care Teams (unrecognized sec tion and content) Single Resource Boss Relationship Specialty Start Date End Date Latanya Stroud MD PCP - General Internal Medicine 08/14/22 Team Status: Active Member Role Status Dates No Primary Care Physician Primary Care Provider Active Team Status: Inactive Member Role Status Dates Dr. Willie Hansen MD Emergency Provider Active Start: May 14, 2025 End: May 15, 2025 No Primary Care Physician Primary Care Provider Active Start: May 14, 2025 End: May 15, 2025 Goals (unrecognized section and content) Goals may be documented in a n alternate section FOR RECORDS PERTAINING TO PATIENTS WHO ARE OR HAVE BEEN ENROLLED IN A CHEMICAL DEPENDENCY/SUBSTANCEABUSE PROGRAM, SOME INFORMATION MAY BE OMITTED. This clinical summary was aggregated from multiple sources. Caution should be exercised in using it in the provision of clinical care. This summary normalizes information from multiple sources, and as a consequence, information in this document may materially change the coding, format and clinical context of patient data. In addition, data may be omitted in some cases. CLINICAL DECISIONS SHOULD BE BASED ON THE PRIMARY CLINICAL RECORDS. [facility] [employer] [facility]. provides no warranty or guarantee of the accuracy or completeness of information in this document.
[2025-05-15] MEDS: Ketorolac 30 MG/ML Syringe IV (21:10)
[2025-05-15] MEDS: HYDROcodone Bitartrate/Apap 5/325 Tablet PO (21:10)
[2025-05-15 21:16] VITALS: BP 131/80; PULSE 92; RESP 20; O2SAT 96
[2025-05-15] MEDS: Ondansetron 4 MG/2 ML Vial IV (21:40)
--- NOTE | 2025-05-15 21:46 | EDS_ITS ---
HPI HPI - GI History of Present Illness Chief Complaint: Abd Pain Informant: patient Abdominal Pain/Flank Pain Onset: Today and Yesterday Context: Gradual Onset Timing: Continuous Location: Right Flank and - (Right flank and suprapubic pain. History of recently diagnosed kidney stone.) Current Severity: Mild Maximum Severity: Mild Nausea/Vomiting/Emesis GI Symptom: Positive for Nausea and Vomiting Onset: Today Severity: Mild Diarrhea/Melena/Hematochezia GI Symptom: Negative for Diarrhea, Melena or Hematochezia Associated Symptoms Associated Symptoms: Negative for Dysuria, Frequency, Hematuria or Urgency Narrative Narrative: 49-year-old male history of drug abuse. Last night was diagnosed with a kidney stone in his Emergency Department. Right UVJ stone 1 to 2 mm. He sustained he is having continued pain. He is on oral narcotic pain medication at home. States has had some nausea and vomiting also. Denies any fever. Prior similar symptoms: Yes Recent Illness/Hospitalization: No PFSH PFSH Medical History Drug abuse Home Medications ?Medication ?Instructions ?Recorded ?Last Taken ?Type oxycodone-acetaminophen 5 mg-325 1 tab PO Q6H PRN PRN Pain 3 days 05/15/25 Unknown Rx mg tablet #12 TABLETS tamsulosin 0.4 mg capsule 0.4 mg PO DAILY #7 caps 05/02 03/26 Unknown Rx Allergy/AdvReac Type Severity Reaction Status Date / Time No Known Allergies Allergy Verified 05/15/25 19:17 Social History Smoking Status: Current some day smoker tobacco type: cigarettes ROS ROS ED ROS Narrative Abdominal pain. Nausea vomiting. Constitutional Constitutional ED: Denies chills or fever(s) ENT ENT ED: Denies ear pain Cardiovascular Cardiovascular: Denies chest pain Respiratory/Chest Respiratory/Chest: Denies cough or dyspnea Gastrointestinal Gastrointestinal: Reports abdominal pain, nausea and vomiting; Denies constipation, diarrhea or melena Genitourinary Genitourinary ED: Denies dysuria or hematuria Musculoskeletal Musculoskeletal: Denies arthralgias Integumentary Denies abscess Neurologic Neurologic: Denies headache(s) Psychiatric Psychiatric: Denies anxiety Endocrine Endocrinology: Denies polydipsia Hematologic/Lymphatic Hematologic/Lymphatic: Denies easy bleeding, easy bruising or lymphadenopathy Allergic/Immunologic Allergic/Immunologic ED: Denies mouth swelling, tongue swelling or urticaria EXAM Physical Exam Narrative Exam Narrative: 49-year-old male vital signs stable afebrile. Lying in bed. Complaining of shanice n. HEENT exam unremarkable. Pupils round react light. Moist mucous members. Neck nontender. Lungs clear to auscultation. Heart regular rhythm rate about 90 no murmur. Chest wall ribs nontender. Abdomen soft nondistended normal bowel sounds without peritoneal signs. No hernia or mass. No distention. Back nontender. Moving all 4 extremities. Nontender no edema. Normal range of motion. Normal strength. Skin multiple tattoos. No rashes. External exam nontender. No hernia or mass. No testicular tenderness. No lymphadenopathy. No lesions. Is awake and alert. No focal motor deficits. Const Vital Signs: 05/15/25 19:16 05/15/25 21:16 Temperature 97.8 F Temperature Source Oral Pulse Rate 85 92 Respiratory Rate 16 20 H Blood Pressure 146/85 H 131/80 H Blood Pressure Mean 105 97 Pulse Ox 98 96 Oxygen Delivery Method Room Air Room Air Positive well nourished and well developed; Negative for obese, cachectic, contractures or unkempt General Appearance ED: well developed and NAD; Negative for unkempt, cachectic, contractures or pallor Nutritional Appearance: Negative for cachectic or obese HEENT Reports moist mucous membranes normocephalic and atraumatic Eyes PERRL and EOMs intact bilaterally General Eye ED: Negative for pale conjunctiva or scleral icterus Neck no lymphadenopathy, supple and no JVD General: Negative for tenderness Lymph Lymphatic: Negative for other Resp normal respiratory effort and clear to auscultation bilaterally Cardio regular rate, regular rhythm, S1 normal heart sound, S2 normal heart sound and no murmurs GI non-tender, non-distended and no masses Inspection: Negative for abdominal distention Auscultation: normoactive bowel sounds Palpation: soft; Negative for tender, guarding, hernia, mass, pulsatile mass or rebound tenderness present Narrative: Nontender. No mass. No lymphadenopathy. No hernia. No testicular pain. Back/Spine no CVA tenderness General Back: Negative for CVA tenderness Cervical Spine: Negative for cervical spine tenderness Thoracic Spine / Upper Back: Negative for thoracic spinal tenderness Lumbar Spine / Lower Back: Negative for lumbar spinal tenderness Extremity full ROM General Extremety ED: Negative for edema or tenderness General Extremity: Negative for edema Neuro CN's II-XII intact bilaterally and moves all extremities Sensorium / Orientation: alert, oriented to person, oriented to place and oriented to time; Negative for orientation impaired, confused, lethargic or stuporous Motor Exam: strength 5/5 throughout Psych mental status grossly normal and thought process normal Appearance: Negative for unkempt Attitude: No agitated Mood & Affect: anxious; Negative for depressed or tearful Skin no wounds General Skin Exam: Negative for jaundice or pallor Lesions: no lesions Rashes: no rashes Trauma: Negative for abrasion Nails: Negative for discolored MDM MDM MDM Narrative Medical decision making narrative: 49-year-old male with evaluated last night in the workup for a kidney stone. There is a 1 to 2 mm stone. His other labs are unremarkable. He was given [place] here for pain. IV Toradol. He is feeling much better. He was given Zofran for nausea. He is comfortable being discharged to home. I reviewed his test from last night. He is already on narcotic pain meds he does not need any additional prescriptions. History & Record Review Discussion w/independent historian: Patient Additional record(s) reviewed:: Prior inpatient record, Prior outpatient record, Prior ED visit and Prior labs Lab Data Attestation: I reviewed the patient's lab results. Lab results narrative: Reviewed labs and CAT scan results from last night. Discharge Plan Triage Chief Complaint: Abd Pain ED Provider: Darrin aWrd Dx/Rx/DC Orders Clinical Impression: Ureteral colic, Ureterolithiasis Instructions: ED Kidney Stone with Pain Prescriptions: No Action oxycodone-acetaminophen 5-325 mg tablet 1 tab PO Q6H PRN PRN (Reason: Pain) 3 Days Qty: 12 0RF tamsulosin 0.4 mg capsule 0.4 mg PO DAILY Qty: 7 0RF Primary Care Provider: Care Physician,No Primary Referrals: Care Physician,No Primary [Primary Care Provider] - Activity Restrictions/Additional Instructions: Motrin and pain meds for pain. Follow-up as needed. This should pass. Plenty of fluids. Print Language: Indonesian Disposition Disposition: Home, Self Care
[2025-05-15 21:56] VITALS: BP 131/80; PULSE 92; RESP 20; TEMP 36.6; O2SAT 96
== END 2025-05-15 22:10 | disposition home or self-care (01) ==
PROVIDERS: Emergency Provider Emergency Medicine; Visit Provider Emergency Medicine
DX: N20.1 Calculus of ureter (principal); F17.210 Nicotine dependence, cigarettes, uncomplicated
CPT/HCPCS: 96374; 96375; 99285; A4216; J2405